=== PATIENT | male | born 1965 | race Caucasian/White ===

== ENCOUNTER 2020-09-29 08:10 | Outpatient (REF) | payer OTHER, SELFPAY ==
[2020-09-29 11:13] LABS: MANUAL DIFF FLAG NO
[2020-09-29 11:23] LABS: Basophils Percent Auto 0.4 % (0-2); Eosinophils Absolute Auto 0.1 X10*3/uL (0.0-0.4); Eosinophils Percent Auto 1.1 % (0-4); Hematocrit 40.7 % (42-52); Hemoglobin 13.4 g/dl (14.0-18.0); Imm Gran Abs Auto 0.02 X10*3/uL (0.00-0.03); Imm Gran Pct Auto 0.3 % (0.0-0.4); Lymphocytes Absolute Auto 2.1 X10*3/uL (1.2-4.9); Lymphocytes Percent Auto 30.3 % (20-40); Mean Corpuscular HGB Conc 32.9 g/dl (31.0-36.0); Mean Corpuscular Hemoglobin 31.2 pg (27.0-33.0); Mean Corpuscular Volume 94.7 fL (80-98); Mean Platelet Volume 11.4 fL (9.4-12.4); Monocytes Absolute Auto 0.5 X10*3/uL (0.1-1.2); Monocytes Percent Auto 6.4 % (2-11); Neutrophils Absolute Auto 4.3 X10*3/uL (2.0-8.3); Neutrophils Percent Auto 61.5 % (45-73); Platelet Count 211 X10*3/uL (160-400); Red Cell Distribution Width 12.1 % (11.0-16.0)
[2020-09-29 11:48] LABS: Alanine Aminotransferase 15 U/L (0-40); Albumin Level 4.1 g/dL (3.5-5.0); Alkaline Phosphatase 101 U/L (39-117); Anion Gap 12 (12-20); Aspartate Amino Transferase 16 U/L (5-37); Bilirubin Total 0.3 mg/dL (0.0-1.0); Blood Urea Nitrogen 12 mg/dL (9-16); Calcium 8.7 mg/dL (8.4-10.2); Carbon Dioxide 24 mmol/L (22-29); Chloride 105 mmol/L (96-108); Estimated Glomerular Filt Rate > 60; Glucose Fasting 277 mg/dL (60-99); Potassium 4.4 mmol/l (3.3-5.1); Sodium 137 mmol/L (135-145); Total Protein 6.2 g/dL (6.5-8.0)
[2020-09-29 11:59] LABS: TSH reflex Free T4 0.87 mIU/mL (0.32-4.0)
== END 2020-09-29 08:11 | disposition home or self-care (01) ==
LOC: HO.HMGCLDS 08:10
PROVIDERS: PCP Internal Medicine; Visit Provider Internal Medicine
DX: K58.0 Irritable bowel syndrome with diarrhea (principal); I10 Essential (primary) hypertension
CPT/HCPCS: 36415; 80053; 84443; 85025

== ENCOUNTER 2020-10-02 10:23 | Outpatient (REF) | payer OTHER, SELFPAY ==
--- NOTE | 2020-10-02 10:27 | US_ITS ---
EXAMINATION: US ABDOMEN COMPLETE CLINICAL INFORMATION: Irritable bowel syndrome. Gaseous abdominal distention. COMPARISON: CT chest screening 05/26/2020 TECHNIQUE: Real-time imaging of the abdominal viscera. FINDINGS: PANCREAS: There are several echogenic stones seen within the pancreatic duct with mild pancreatic duct dilatation measuring 1.3 cm in the mid and the distal segment. The head of the pancreas is somewhat visualized. The probable mass described on recent CT is not well visualized at this time. ABDOMINAL AORTA: The proximal, mid, and distal segments are normal in caliber. There is mild atherosclerotic calcification of the abdominal aorta. INFERIOR VENA CAVA: Visualized portions are normal. LIVER: Normal. The liver is normal in size. The liver contour is normal. Parenchymal echogenicity is normal. No focal hepatic lesion. There is no intrahepatic biliary duct dilatation seen. GALLBLADDER: There are prominent echogenic areas along the gallbladder wall question calcifications. Slight echogenic debris seen within. The gallbladder is physiologically distended without evidence of stones, sludge, polyps, wall thickening or pericholecystic fluid. COMMON BILE DUCT: Normal in caliber measuring 0.58 cm in diameter. RIGHT KIDNEY: There is anechoic cyst in midpole measuring 2.3 x 2.0 x 2.3 cm. No hydronephrosis. No renal calculi or focal parenchymal lesions. The kidney measures 11.0 cm in maximum dimension. LEFT KIDNEY: Normal. No hydronephrosis. No renal calculi or focal parenchymal lesions. The kidney measures 11.8 cm in maximum dimension. SPLEEN: Normal. The spleen measures 11.0 cm in maximum dimension. There is a small splenule seen at the hilum. FREE FLUID: None. US/US abdomen complete IMPRESSION: Dilated pancreatic duct in the body and the tail with multiple calcifications or stones. The CBD is prominent measuring 0.58 cm. Similar findings of calcifications were seen on the CT chest screening exam There are echogenic wall calcifications and dependent debris within the gallbladder. Small splenule at the hilum.
== END 2020-10-02 10:24 | disposition home or self-care (01) ==
LOC: HO.HMGCX 10:23
PROVIDERS: PCP Internal Medicine; Visit Provider Internal Medicine
DX: K58.0 Irritable bowel syndrome with diarrhea (principal); R14.0 Abdominal distension (gaseous)
CPT/HCPCS: 76700

== ENCOUNTER 2020-10-09 13:04 | Outpatient (REF) | payer OTHER, SELFPAY ==
[2020-10-09 14:21] LABS: Estimated Average Glucose 280 mg/dL; Hemoglobin A1c % 11.4 %
[2020-10-09 14:40] LABS: Creatinine Urine 59.78 mg/dL
== END 2020-10-09 13:05 | disposition home or self-care (01) ==
LOC: HO.HMGCLDS 13:04
PROVIDERS: PCP Internal Medicine; Visit Provider Internal Medicine
DX: R73.01 Impaired fasting glucose (principal)
CPT/HCPCS: 82043; 83036

== ENCOUNTER → 2020-10-16 08:20 | Outpatient (BNVA) | payer OTHER, SELFPAY | PROVIDERS: PCP Internal Medicine; Visit Provider Physician Assistant | DX: Z76.89 Persons encountering health services in other specified circumstances (principal) ==

== ENCOUNTER 2020-10-24 09:09 | Outpatient (REF) | payer OTHER, SELFPAY ==
[2020-10-24 11:47] LABS: Estimated Average Glucose 312 mg/dL; Hemoglobin A1c % 12.5 %
[2020-10-24 11:51] LABS: Lipase 66 U/L (8-78)
[2020-10-24 11:59] LABS: Alanine Aminotransferase 16 U/L (0-40); Albumin Level 4.6 g/dL (3.5-5.0); Alkaline Phosphatase 106 U/L (39-117); Anion Gap 15 (12-20); Aspartate Amino Transferase 11 U/L (5-37); Bilirubin Total 0.3 mg/dL (0.0-1.0); Blood Urea Nitrogen 12 mg/dL (9-16); Calcium 9.3 mg/dL (8.4-10.2); Carbon Dioxide 24 mmol/L (22-29); Chloride 102 mmol/L (96-108); Cholesterol 133 mg/dL; Estimated Glomerular Filt Rate > 60; Glucose Fasting 343 mg/dL (60-99); HDL Cholesterol 34 mg/dL; LDL Cholesterol Calculated 82 mg/dl; Potassium 4.1 mmol/l (3.3-5.1); Sodium 137 mmol/L (135-145); Total Protein 6.8 g/dL (6.5-8.0); Triglycerides 88 mg/dL
[2020-10-24 12:02] LABS: Creatinine Urine 17.34 mg/dL; Microalbumin Urine < 5.0 mg/L
[2020-10-24 12:24] LABS: Erythrocyte Sedimentation Rate 5 MM/HR (0-15)
[2020-10-24 12:27] LABS: Folate 17.8 ng/mL (> or = 4.0); Vitamin B12 363 pg/mL (200-900)
[2020-10-25 14:37] LABS: CRP High Sensitivity 1.1 mg/L
[2020-10-25 22:07] LABS: Transglutaminase IgA 1 U/mL
[2020-10-25 23:36] LABS: Anti Nuclear Antibody Screen POSITIVE (NEGATIVE); Anti Nuclear Antibody Titer 1:40 titer
[2020-10-26 23:43] LABS: Immunoglobulin G Subclass 1 249 mg/dL (382-929); Immunoglobulin G Subclass 2 201 mg/dL (241-700); Immunoglobulin G Subclass 3 35 mg/dL (22-178); Immunoglobulin G Subclass 4 11.5 mg/dL (4-86); Immunoglobulin G Total 533 mg/dL (600-1640)
[2020-10-28 13:17] LABS: Vitamin D 25-OH, D2 <4 ng/mL; Vitamin D 25-OH, D3 16 ng/mL; Vitamin D 25-OH, Total 16 ng/mL (30-100)
[2020-10-28 17:57] LABS: Endomysial IgA Antibody Negative (Negative)
[2020-10-28 18:22] LABS: Vitamin K1 <50 pg/mL (130-1500)
[2020-10-28 20:42] LABS: Alpha-Tocopherol 6.2 mg/L (5.7-19.9); Beta-Gamma Tocopherol <1.0 mg/L (<=4.3)
[2020-10-29 16:53] LABS: Vitamin A 32 mcg/dL (38-98)
[2020-11-01 21:22] LABS: Pancreatic Elastase-1 <15 mcg/g
== END 2020-10-24 09:10 | disposition home or self-care (01) ==
LOC: HO.HMGCLDS 09:09
PROVIDERS: PCP Internal Medicine; Visit Provider Physician Assistant
DX: K86.89 Other specified diseases of pancreas (principal); R19.7 Diarrhea, unspecified; E11.65 Type 2 diabetes mellitus with hyperglycemia; I10 Essential (primary) hypertension; D64.9 Anemia, unspecified
CPT/HCPCS: 36415; 80053; 80061; 82043; 82306; 82607; 82656; 82746; 82784; 83036; 83516; 83690; 84446; 84590; 84597; 85652; 86038; 86039; 86141; 86255; 86256

== ENCOUNTER 2020-11-07 11:31 | Outpatient (REF) | payer OTHER, SELFPAY ==
[2020-11-07 13:06] LABS: Blood Urea Nitrogen 12 mg/dL (9-16); Estimated Glomerular Filt Rate > 60
[2020-11-14 10:47] LABS: Vitamin A 30 mcg/dL (38-98)
== END 2020-11-07 11:32 | disposition home or self-care (01) ==
LOC: HO.LAB 11:31
PROVIDERS: PCP Physician Assistant; Referring Provider Physician Assistant; Visit Provider Physician Assistant
DX: R19.7 Diarrhea, unspecified (principal); K86.89 Other specified diseases of pancreas
CPT/HCPCS: 36415; 82565; 84520; 84590

== ENCOUNTER 2020-11-13 07:45 | Outpatient (REF) | payer OTHER, SELFPAY ==
--- NOTE | 2020-11-13 07:48 | MR_ITS ---
EXAMINATION: MR ABDOMEN WITHOUT AND WITH CONTRAST CLINICAL INFORMATION: Other specified diseases of the pancreas COMPARISON: Previous abdominal ultrasound September [address] of the chest May [address] of the abdomen and pelvis June 2007 TECHNIQUE: MR abdomen was performed without and with use of 7.5 mL intravenous Gadavist gadolinium contrast. Postcontrast images are performed in multiphase dynamic sequences. Imaging was performed in 3 planes. MRCP sequences were also performed. FINDINGS: LUNG BASES: The visualized lung bases are unremarkable. LIVER, GALLBLADDER, AND BILIARY TREE: The liver is normal in size, smooth in contour, and normal in signal. No focal hepatic lesion or biliary ductal dilatation is present. The gallbladder is unremarkable with no evidence of gallbladder wall thickening, or obvious pericholecystic inflammatory changes. PANCREAS: The main pancreatic duct is dilated throughout the pancreas measuring up to 1.3 cm. There are multiple low signal filling defects seen in the main pancreatic duct on T2 weighted sequences. The largest measures 0.8 cm in the distal main pancreatic duct in the head of the pancreas at the ampulla for example MRCP image 33 series 7.These filling defects in the main pancreatic duct are not appreciated on T1-weighted sequences. When compared with previous CT of the chest and abdominal ultrasound this may correspond to calcifications or stones. There is question of dilatation of an accessory main pancreatic duct in the head of the pancreas measuring 9 mm for example MRCP image 26 series 7. This also has a small low signal filling defect questionable for a stone that measures 3 mm. There are multiple dilated right side branch pancreatic duct radicles seen throughout the pancreas. Enhancing pancreatic mass is not appreciated. This probably represents chronic pancreatitis. SPLEEN: Normal. ADRENAL GLANDS: Normal. KIDNEYS AND URETERS: The kidneys are normal in size, shape, and enhance symmetrically. There is a 2 cm cyst in the right kidney. No hydronephrosis. No perinephric stranding. GASTROINTESTINAL TRACT: No bowel obstruction. No ascites or fluid collection. ABDOMINAL WALL: No significant hernia is appreciated. LYMPH NODES: No lymphadenopathy. VASCULAR: Unremarkable. OSSEOUS STRUCTURES: Marrow signal normal. There are degenerative changes of the spine. MR/MR abdomen wo/w con IMPRESSION: Very dilated pancreatic ducts and dilated side branch pancreatic duct radicals probably representing chronic pancreatitis. Several low signal on T2-weighted sequences filling defects in the pancreatic ducts, largest measuring 9 mm at the ampulla. When compared with previous CT of the chest and abdominal ultrasound this probably corresponds to calcifications in the ducts. No enhancing pancreatic lesion is appreciated. As calcifications are not well visualized by MRI, follow-up dedicated CT of the pancreas with and without contrast according to pancreatic mass protocol should be considered. Normal-appearing gallbladder. No gallstones seen. Small right renal cyst.
== END 2020-11-13 07:46 | disposition home or self-care (01) ==
LOC: HO.MRI 07:45
PROVIDERS: Visit Provider Physician Assistant
DX: K86.89 Other specified diseases of pancreas (principal)
CPT/HCPCS: 74183; A9585

== ENCOUNTER → 2020-12-04 14:55 | Outpatient (BNVA) | payer OTHER, SELFPAY | PROVIDERS: Visit Provider Physician Assistant ==

== ENCOUNTER → 2020-12-20 12:39 | Outpatient (BNVA) | payer OTHER, SELFPAY | PROVIDERS: PCP Internal Medicine; Visit Provider Physician Assistant ==

== ENCOUNTER 2021-01-10 10:49 | Outpatient (REF) | payer OTHER, SELFPAY ==
[2021-01-10 14:34] LABS: Vitamin D 25-OH Total 15.3 ng/mL (>30)
[2021-01-10 14:37] LABS: Alanine Aminotransferase 31 U/L (0-40); Albumin Level 4.3 g/dL (3.5-5.0); Alkaline Phosphatase 110 U/L (39-117); Anion Gap 16 (12-20); Aspartate Amino Transferase 16 U/L (5-37); Bilirubin Total 0.4 mg/dL (0.0-1.0); Blood Urea Nitrogen 12 mg/dL (9-16); Calcium 9.1 mg/dL (8.4-10.2); Carbon Dioxide 24 mmol/L (22-29); Chloride 97 mmol/L (96-108); Cholesterol 129 mg/dL; Creatinine Urine 39.87 mg/dL; Estimated Glomerular Filt Rate > 60; Glucose Fasting 476 mg/dL (60-99); HDL Cholesterol 34 mg/dL; LDL Cholesterol Calculated 71 mg/dl; Potassium 4.1 mmol/L (3.3-5.1); Sodium 133 mmol/L (135-145); Total Protein 6.4 g/dL (6.5-8.0); Triglycerides 123 mg/dL
== END 2021-01-10 10:50 | disposition home or self-care (01) ==
LOC: HO.HMGCLDS 10:49
PROVIDERS: PCP Internal Medicine; Visit Provider Internal Medicine
DX: R10.11 Right upper quadrant pain (principal); K86.89 Other specified diseases of pancreas; I10 Essential (primary) hypertension; E11.65 Type 2 diabetes mellitus with hyperglycemia
CPT/HCPCS: 36415; 80053; 80061; 82043; 82306

== ENCOUNTER 2021-01-10 16:15 | Emergency (ER) | payer OTHER, SELFPAY | END 2021-01-10 18:38 | disposition left against medical advice (07) | PROVIDERS: Emergency Provider Emergency Medicine Emergency Medical Services; PCP Internal Medicine | DX: R73.9 Hyperglycemia, unspecified (principal) ==

== ENCOUNTER 2021-01-11 06:50 | Emergency (ER) | payer OTHER, SELFPAY ==
[2021-01-11 07:45] VITALS: BP 153/92; PULSE 72; RESP 16; TEMP 36.9; O2SAT 98; BMI 21.0
--- NOTE | 2021-01-11 08:35 | ED.GENADULT ---
HPI - General Adult General Chief complaint: General Medical Stated complaint: high blood sugar Time Seen by Provider: 01/11/21 08:35 Source: patient Mode of arrival: ambulatory Limitations: no limitations History of Present Illness HPI narrative: 55-year-old male with history of chronic pancreatitis, new onset diabetes who presents emergency department for evaluation of elevated glucose. The patient states that over the past month and a half he has been worked up for chronic pancreatitis, he states that he does have a history of alcohol use disorder and did have pancreatitis when he was younger. The patient was diagnosed with diabetes approximately 1-1/2 month prior and was started on metformin, this was recently stopped by the salesperson surgical appliances. The patient has followed up with his PCP and was found to have a high glucose. The patient's PCP was referring the patient to the tire mold engraver, Dr.Suazo Rivas. Today, the patient's glucose was higher and he was referred to the emergency department for evaluation. The patient states that he has had frequency, urgency, no change in his vision and approximately a 30 lb weight loss over 1 month. The patient states that he was on pancreatic enzymes (Creon) but this did not seem to improve his diarrhea so he stopped this medication. He states his diarrhea has improved slightly with herbal medications and with acupuncture. He states that his glucose yesterday was 478 and today it was higher. He denied fever, chills, chest pain, shortness of breath, nausea, vomiting. The patient states that he has a glucometer at home but it does not work. He states that he has never been on subcutaneous insulin and has never injected himself before. Related Data Home Medications Medication Instructions Recorded Confirmed lisinopril 10 mg tablet 10 mg PO DAILY 08/02/20 01/11/21 amitriptyline 20 mg PO BEDTIME 01/11/21 01/11/21 cholecalciferol (vitamin D3) 1,250 mcg PO TH@1000 01/11/21 01/11/21 [D3-50 Cholecalciferol] cyanocobalamin (vitamin B-12) 1,000 mcg PO DAILY 01/11/21 01/11/21 vitamin B complex 1 tab PO DAILY 01/11/21 01/11/21 Previous Rx's Medication Instructions Recorded blood sugar diagnostic #100 ea 10/11/20 blood-glucose meter #1 ea 12/30/20 lancets 28 gauge #100 ea 10/11/20 nystatin 100,000 unit/mL oral 5 ml PO QID 7 Days #140 ml 01/10/21 suspension alcohol swabs [Alcohol Wipes] 1 pad TOPICAL TID #200 ea 01/11/21 insulin glargine [Lantus U-100 20 unit SUBCUT QPM 30 Days #10 ml 01/11/21 Insulin] insulin lispro [Humalog U-100 5 unit SUBCUT TID #10 ml 01/11/21 Insulin] insulin syringe,safetyneedle #100 ea 01/11/21 [Assure ID Insulin Safety] [id number] [Creon] 11.44435 cap PO TID #90 cap 01/11/21 Allergies Allergy/AdvReac Type Severity Reaction Status Date / Time No Known Allergies Allergy Verified 01/10/21 10:17 [No Known Allergies*] Review of Systems Review of Systems: Yes all other systems are reviewed and are negative PMFSH Past Medical History Medical History Anxiety disorder Calcification of gallbladder Chronic pancreatitis Diabetes mellitus with hyperglycemia, without long-term current use of insulin Dilated pancreatic duct Dry skin dermatitis Essential hypertension Gassiness Impaired fasting glucose Influenza vaccination declined Insomnia Irritable bowel syndrome with diarrhea Pancreatic calcification Smoker unmotivated to quit Surgical History History of cervical fracture History of root canal procedure History of tonsillectomy and adenoidectomy History of wrist fracture Family History Family History Father Cirrhosis, alcoholic Mother Agoraphobia PNA (pneumonia) Mental illness in member of household Sister No problems noted. Son No problems noted. Son No problems noted. 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 Physical Exam Vital Signs: Vital Signs: Last Vital Signs Temp 98.4 F 01/11/21 09:18 Pulse 72 01/11/21 09:18 Resp 16 01/11/21 09:18 BP 153/92 H 01/11/21 09:18 Pulse Ox 98 01/11/21 09:18 Body Mass Index 21.0 Const: General: cooperative Orientation/consciousness: oriented to person and oriented to place Limitations: no limitations HENMT: Head: Yes normal to inspection, Yes normocephalic and Yes atraumatic Ears: external ears normal General nose exam: Normal external nose present Face and sinus: Yes normal facial exam Mouth: Normal oral and palatal mucosa present Throat: Yes posterior oropharynx normal Eyes: Periorbital: periorbital findings normal Eyelids: Yes eyelids normal Conjunctivae: conjunctivae normal Sclerae: sclerae normal Corneas: corneas normal Pupils: Equal, round and reactive pupils present Direct Ophthalmoscopy: normal light reflex Neck: Neck: Yes full ROM, Yes no lymphadenopathy, Yes no meningeal signs, Yes trachea midline and Yes supple Chest: Chest palpation & inspection: normal inspection of the chest and normal palpation of entire chest wall Resp: Effort & Inspection: normal respiratory effort and able to speak in complete sentences Auscultation: clear to auscultation bilaterally Cardio: Rate: regular rate Rhythm: regular rhythm Heart sounds: S1 normal heart sound present, S2 normal heart sound present and no murmurs GI: Inspection: Yes normal to inspection Palpation (GI): Soft to palpation, nontender, no guarding, not rigid and No hepatosplenomegaly present : General: Yes no CVA tenderness Back/Spine/Pelvis: Back: no CVA tenderness Cervical Spine: normal cervical lordosis Thoracic/Lumbar Spine: thoracic and lumbar spine normal to inspection Skin: Lesions: no lesions Rashes: no rashes Wounds: no wounds Neuro: General: oriented to person, oriented to place and no meningeal signs Cranial nerves: Yes CN's II-XII intact bilaterally and Yes Equal, round and reactive pupils present Cognition (Neuro): normal cognition Motor exam (neuro): 5/5 motor strength present throughout Extrem: General: Yes normal to inspection and Yes full ROM Psych: Appearance: well kempt Mental Status: mental status grossly normal Speech and movement: Normal speech and movement present Affect: normal affect Attitude: cooperative Thought process: Normal thought process present Thought content: Normal thought content present Course Course Course Narrative: 55-year-old male with a history of new onset diabetes and chronic pancreatitis, not on any antihyperglycemic medications who presents emergency department with frequency, increased thirst, diarrhea and weight loss and with an glucose greater than 400. Patient's physical examination was unremarkable. I ordered a CBC, CMP, urinalysis and COVID-19 test. 1327: The patient's laboratory evaluation did reveal an elevated glucose of 535, otherwise was unremarkable. Urinalysis did revealed glucose with no ketones in his urine. The patient was treated with normal saline x2 L with improvement of his glucose down to 391. He then received 10 units of regular insulin with improvement of his point of care glucose to 218 and then down to 134. I did discuss the patient's presentation with the patient's PCPs office and with Dr. Dajuan Rivas. Since the patient has never been on insulin, and has never self injected himself, she recommended that he be admitted to follow his glucose and to start him on insulin, get a nutrition consult and train him to use insulin. She also recommended that the patient should be restarted on his pancreatic enzymes (Creon). I did discuss this with the covering hospitalist, Dr. Negron and the patient will be admitted to the hospital service for further treatment. 1436: The patient was seen by the hospitalist however the patient states that he cannot be hospitalized at this time and he has issues that he has to deal with at home. The patient will therefore be treated as an outpatient. He was given Lantus 20 units subcutaneously here in the emergency department. He will be started on Lantus 20 units subQ at night and Humalog insulin 3 units before each meal. He will also be started back on his Creon. He will need to follow-up with his PCP and the tire mold engraver for further management of his diabetes. Medical Decision Making Lab Data Result diagrams: 01/11/21 09:08 01/11/21 09:08 Labs: Lab Results 01/11/21 01/11/21 01/11/21 Range/Units 07:18 09:08 09:08 WBC 8.0 (4.8-10.8) X10*3/uL RBC 4.44 L (4.60-5.80) X10*6/uL Hgb 13.9 L (14.0-18.0) g/dl Hct 41.0 L (42-52) % MCV 92.3 (80-98) fL MCH 31.3 (27.0-33.0) pg MCHC 33.9 (31.0-36.0) g/dl RDW 12.4 (11.0-16.0) % Plt Count 207 (160-400) X10*3/uL MPV 11.1 (9.4-12.4) fL Immature Gran % (Auto) 0.3 (0.0-0.4) % Neut % (Auto) 67.3 (45-73) % Lymph % (Auto) 26.1 (20-40) % [place] % (Auto) 5.5 (2-11) % Eos % (Auto) 0.4 (0-4) % Baso % (Auto) 0.4 (0-2) % Lymph # (Auto) 2.1 (1.2-4.9) X10*3/uL [place] # (Auto) 0.4 (0.1-1.2) X10*3/uL Eos # (Auto) 0.0 (0.0-0.4) X10*3/uL Baso # (Auto) 0.0 (0.0-0.2) X10*3/uL Abs Immat Gran (auto) 0.02 (0.00-0.03) X10*3/uL Absolute Neuts (auto) 5.4 (2.0-8.3) X10*3/uL Absolute Nucleated RBC 0.000 (0.0-0.012) X10*3/uL Nucleated RBC % (auto) 0.0 (0.0-0.2) /100WBC Sodium 134 L (135-145) mmol/L Potassium 4.1 (3.3-5.1) mmol/L Chloride 101 (96-108) mmol/L Carbon Dioxide 25 (22-29) mmol/L Anion Gap 12 (12-20) BUN 14 (9-16) mg/dL Creatinine 0.91 (0.5-1.4) mg/dL Estim Creat Clear Calc 89.1 Estimated GFR > 60 POC Glucose 554 H* (60-115) mg/dL Random Glucose 535 H* (60-115) mg/dL Calcium 8.9 (8.4-10.2) mg/dL Total Bilirubin 0.4 (0.0-1.0) mg/dL AST 18 (5-37) U/L ALT 34 (0-40) U/L Alkaline Phosphatase 112 (39-117) U/L Total Protein 6.4 L (6.5-8.0) g/dL Albumin 4.3 (3.5-5.0) g/dL Lipase 57 (8-78) U/L Urine Color Urine Appearance Urine pH (5.0-8.0) Ur Specific [place] (1.005-1.025) Urine Protein (NEG-TRACE) MG/DL Urine Glucose (UA) (NEG) MG/DL Urine Ketones (NEG) MG/DL Urine Blood (NEG) Urine Nitrite (NEG) Ur Leukocyte Esterase (NEG) Urine RBC (0) /HPF Urine WBC (0-4) /HPF Ur Squamous Epith Cells /LPF Urine Bacteria /LPF 01/11/21 01/11/21 01/11/21 Range/Units 09:10 10:38 11:56 WBC (4.8-10.8) X10*3/uL RBC (4.60-5.80) X10*6/uL Hgb (14.0-18.0) g/dl Hct (42-52) % MCV (80-98) fL MCH (27.0-33.0) pg MCHC (31.0-36.0) g/dl RDW (11.0-16.0) % Plt Count (160-400) X10*3/uL MPV (9.4-12.4) fL Immature Gran % (Auto) (0.0-0.4) % Neut % (Auto) (45-73) % Lymph % (Auto) (20-40) % [place] % (Auto) (2-11) % Eos % (Auto) (0-4) % Baso % (Auto) (0-2) % Lymph # (Auto) (1.2-4.9) X10*3/uL [place] # (Auto) (0.1-1.2) X10*3/uL Eos # (Auto) (0.0-0.4) X10*3/uL Baso # (Auto) (0.0-0.2) X10*3/uL Abs Immat Gran (auto) (0.00-0.03) X10*3/uL Absolute Neuts (auto) (2.0-8.3) X10*3/uL Absolute Nucleated RBC (0.0-0.012) X10*3/uL Nucleated RBC % (auto) (0.0-0.2) /100WBC Sodium (135-145) mmol/L Potassium (3.3-5.1) mmol/L Chloride (96-108) mmol/L Carbon Dioxide (22-29) mmol/L Anion Gap (12-20) BUN (9-16) mg/dL Creatinine (0.5-1.4) mg/dL Estim Creat Clear Calc Estimated GFR POC Glucose 391 H* 218 H (60-115) mg/dL Random Glucose (60-115) mg/dL Calcium (8.4-10.2) mg/dL Total Bilirubin (0.0-1.0) mg/dL AST (5-37) U/L ALT (0-40) U/L Alkaline Phosphatase (39-117) U/L Total Protein (6.5-8.0) g/dL Albumin (3.5-5.0) g/dL Lipase (8-78) U/L Urine Color YELLOW Urine Appearance CLEAR Urine pH 5.5 (5.0-8.0) Ur Specific [place] 1.020 (1.005-1.025) Urine Protein NEG (NEG-TRACE) MG/DL Urine Glucose (UA) >=1000 H (NEG) MG/DL Urine Ketones NEG (NEG) MG/DL Urine Blood NEG (NEG) Urine Nitrite NEG (NEG) Ur Leukocyte Esterase NEG (NEG) Urine RBC 0-2 (0) /HPF Urine WBC 0-2 (0-4) /HPF Ur Squamous Epith Cells NONE /LPF Urine Bacteria NONE /LPF 01/11/21 Range/Units 13:07 WBC (4.8-10.8) X10*3/uL RBC (4.60-5.80) X10*6/uL Hgb (14.0-18.0) g/dl Hct (42-52) % MCV (80-98) fL MCH (27.0-33.0) pg MCHC (31.0-36.0) g/dl RDW (11.0-16.0) % Plt Count (160-400) X10*3/uL MPV (9.4-12.4) fL Immature Gran % (Auto) (0.0-0.4) % Neut % (Auto) (45-73) % Lymph % (Auto) (20-40) % [place] % (Auto) (2-11) % Eos % (Auto) (0-4) % Baso % (Auto) (0-2) % Lymph # (Auto) (1.2-4.9) X10*3/uL [place] # (Auto) (0.1-1.2) X10*3/uL Eos # (Auto) (0.0-0.4) X10*3/uL Baso # (Auto) (0.0-0.2) X10*3/uL Abs Immat Gran (auto) (0.00-0.03) X10*3/uL Absolute Neuts (auto) (2.0-8.3) X10*3/uL Absolute Nucleated RBC (0.0-0.012) X10*3/uL Nucleated RBC % (auto) (0.0-0.2) /100WBC Sodium (135-145) mmol/L Potassium (3.3-5.1) mmol/L Chloride (96-108) mmol/L Carbon Dioxide (22-29) mmol/L Anion Gap (12-20) BUN (9-16) mg/dL Creatinine (0.5-1.4) mg/dL Estim Creat Clear Calc Estimated GFR POC Glucose 134 H (60-115) mg/dL Random Glucose (60-115) mg/dL Calcium (8.4-10.2) mg/dL Total Bilirubin (0.0-1.0) mg/dL AST (5-37) U/L ALT (0-40) U/L Alkaline Phosphatase (39-117) U/L Total Protein (6.5-8.0) g/dL Albumin (3.5-5.0) g/dL Lipase (8-78) U/L Urine Color Urine Appearance Urine pH (5.0-8.0) Ur Specific [place] (1.005-1.025) Urine Protein (NEG-TRACE) MG/DL Urine Glucose (UA) (NEG) MG/DL Urine Ketones (NEG) MG/DL Urine Blood (NEG) Urine Nitrite (NEG) Ur Leukocyte Esterase (NEG) Urine RBC (0) /HPF Urine WBC (0-4) /HPF Ur Squamous Epith Cells /LPF Urine Bacteria /LPF Discharge Plan Discharge Clinical Impression: New onset type 1 diabetes mellitus, uncontrolled, Acute dehydration Diarrhea Qualifiers: Diarrhea type: unspecified type Qualified Code(s): R19.7 - Diarrhea, unspecified Patient Disposition: Home, Self-Care Instructions: Insulin Glargine (By injection), Diabetes Type 1: Management (ED) Additional Instructions: My recommendation is that you stay in the hospital to get training on how to use insulin however you want to the and try to treat herself as an outpatient. Take Lantus (glargine insulin) 20 units subcutaneously at night. You were given a dose here in the emergency department so take your next dose tomorrow evening. Take Humalog insulin (lispro proinsulin) 3 unit before breakfast, lunch and dinner. Check your glucose before meals and at night right these down to keep track of them for your doctor. Restart your pancreatic enzymes (Creon). Follow-up with your doctor in 2 days. Call the tire mold engraver, Dr. Rivas's office for a follow-up appointment to help get trained on how to use insulin and for further management of your diabetes. Please return to the emergency department if your symptoms get worse or if you develop any symptoms that are concerning to you. Prescriptions: New Lantus U-100 Insulin 100 unit/mL solution 20 unit subcut QPM 30 Days Qty: 10 RF: 0 insulin lispro [Humalog U-100 Insulin] 100 unit/mL solution 5 unit subcut TID Qty: 10 RF: 0 Creon 6,000-19,000 -30,000 unit capsule,delayed release(DR/EC) 11.15372 cap PO TID Qty: 90 RF: 0 (DME) Assure ID Insulin Safety 1 mL 29 gauge x 1/2 syringe See Rx Instructions .ROUTE .MEDSUPPLY Qty: 100 RF: 0 alcohol swabs [Alcohol Wipes] Pads, Medicated 1 pad topical TID Qty: 200 RF: 0 No Action cholecalciferol (vitamin D3) [D3-50 Cholecalciferol] 1,250 mcg (50,000 unit) Capsule 1,250 mcg PO TH@1000 RF: 0 amitriptyline 10 mg tablet 20 mg PO BEDTIME RF: 0 cyanocobalamin (vitamin B-12) 1,000 mcg Tablet 1,000 mcg PO DAILY RF: 0 vitamin B complex Tablet 1 tab PO DAILY RF: 0 lisinopril 10 mg tablet 10 mg PO DAILY RF: 0 (DME) blood-glucose meter [FreeStyle Lite Meter] Kit See Rx Instructions .ROUTE .MEDSUPPLY Qty: 1 RF: 0 (DME) FreeStyle Lite Strips Strip See Rx Instructions .ROUTE .MEDSUPPLY Qty: 100 RF: 5 (DME) lancets [FreeStyle Lancets] 28 gauge misc See Rx Instructions .ROUTE .MEDSUPPLY Qty: 100 RF: 0 nystatin 100,000 unit/mL suspension 5 ml PO QID 7 Days Qty: 140 RF: 0
[2021-01-11 09:18] VITALS: BP 153/92; PULSE 72; RESP 16; TEMP 36.9; O2SAT 98
[2021-01-11] MEDS: 0.9 % Sodium Chloride 1,000 ML 999 ML IV ×2 (09:19→09:23)
[2021-01-11 09:20] LABS: MANUAL DIFF FLAG NO
[2021-01-11 09:28] LABS: Basophils Percent Auto 0.4 % (0-2); Eosinophils Percent Auto 0.4 % (0-4); Hemoglobin 13.9 g/dl (14.0-18.0); Imm Gran Abs Auto 0.02 X10*3/uL (0.00-0.03); Imm Gran Pct Auto 0.3 % (0.0-0.4); Lymphocytes Absolute Auto 2.1 X10*3/uL (1.2-4.9); Lymphocytes Percent Auto 26.1 % (20-40); Mean Corpuscular HGB Conc 33.9 g/dl (31.0-36.0); Mean Corpuscular Hemoglobin 31.3 pg (27.0-33.0); Mean Corpuscular Volume 92.3 fL (80-98); Mean Platelet Volume 11.1 fL (9.4-12.4); Monocytes Absolute Auto 0.4 X10*3/uL (0.1-1.2); Monocytes Percent Auto 5.5 % (2-11); Neutrophils Absolute Auto 5.4 X10*3/uL (2.0-8.3); Neutrophils Percent Auto 67.3 % (45-73); Platelet Count 207 X10*3/uL (160-400); Red Blood Count 4.44 X10*6/uL (4.60-5.80); Red Cell Distribution Width 12.4 % (11.0-16.0)
[2021-01-11 09:36] LABS: Glucose Urine UA >=1000 MG/DL (NEG); Leukocyte Esterase Urine NEG (NEG); Nitrite Urine NEG (NEG); PH 5.5 (5.0-8.0); Urine Blood NEG (NEG); Urine Ketones NEG (NEG); Urine Protein NEG (NEG-TRACE)
[2021-01-11 09:37] LABS: Appearance Urine CLEAR; Color Urine YELLOW
[2021-01-11 09:49] LABS: RBC Urine 0-2 /HPF (0); WBC Urine 0-2 /HPF (0-4)
[2021-01-11 10:34] LABS: Alanine Aminotransferase 34 U/L (0-40); Albumin Level 4.3 g/dL (3.5-5.0); Alkaline Phosphatase 112 U/L (39-117); Anion Gap 12 (12-20); Aspartate Amino Transferase 18 U/L (5-37); Bilirubin Total 0.4 mg/dL (0.0-1.0); Blood Urea Nitrogen 14 mg/dL (9-16); Calcium 8.9 mg/dL (8.4-10.2); Carbon Dioxide 25 mmol/L (22-29); Chloride 101 mmol/L (96-108); Creatinine Clr Calc Pharmacy 89.1; Estimated Glomerular Filt Rate > 60; Glucose Random 535 mg/dL (60-115); Lipase 57 U/L (8-78); Potassium 4.1 mmol/L (3.3-5.1); Sodium 134 mmol/L (135-145); Total Protein 6.4 g/dL (6.5-8.0)
[2021-01-11] MEDS: Insulin Regular, Human 100 UNIT/ML 3 ML VIAL 10 UNIT IVPUSH (10:42)
--- NOTE | 2021-01-11 10:43 | PC.NURSE ---
pt given 2 Liters NS, recheched POC glucose, 391. Discussed insulin dose with MD, he states give IV as ordered, med given. Pt denies pain, call light at bedside
[2021-01-11 10:45] LABS: Glucose, Whole Blood 391 mg/dL (60-115)
[2021-01-11 10:59] LABS: Glucose, Whole Blood 554 mg/dL (60-115)
[2021-01-11 12:01] LABS: Glucose, Whole Blood 218 mg/dL (60-115)
[2021-01-11 13:11] LABS: Glucose, Whole Blood 134 mg/dL (60-115)
[2021-01-11 14:48] VITALS: BP 118/71; PULSE 52; RESP 15; O2SAT 100
[2021-01-11] MEDS: Insulin Glargine,Hum.rec.anlog 100 UNIT/ML 10 ML VIAL 20 UNIT SUBCUT (14:56)
--- NOTE | 2021-01-11 15:22 | PC.NURSE ---
diabetes education with pt done, included SX of low blood sugar, how to handle used syringes, low glycemic foods, how to treat low blood sugar and when to call MD or come to ER. Pt states he will follow with his PCP as directed, states he has an appointment and will return if any sx develop. Ambulatory on exit with steady gait
== END 2021-01-11 15:22 | disposition home or self-care (01) ==
PROVIDERS: Emergency Provider Emergency Medicine Emergency Medical Services; PCP Internal Medicine
DX: E10.65 Type 1 diabetes mellitus with hyperglycemia (principal); E86.0 Dehydration; R19.7 Diarrhea, unspecified
CPT/HCPCS: 36415; 80053; 81001; 82947; 83690; 85025; 96361; 96372; 96374; 99284

== ENCOUNTER → 2021-01-12 10:45 | Outpatient (BNVA) | payer OTHER, SELFPAY | PROVIDERS: PCP Internal Medicine; Visit Provider Nurse Practitioner Gerontology | DX: E11.9 Type 2 diabetes mellitus without complications (principal); I10 Essential (primary) hypertension | CPT/HCPCS: 82947; 99212 ==

== ENCOUNTER 2021-01-22 08:57 | Outpatient (REF) | payer OTHER, SELFPAY ==
[2021-01-22 12:00] LABS: Anion Gap 14 (12-20); Blood Urea Nitrogen 13 mg/dL (9-16); Calcium 8.7 mg/dL (8.4-10.2); Carbon Dioxide 24 mmol/L (22-29); Chloride 106 mmol/L (96-108); Estimated Glomerular Filt Rate > 60; Glucose Fasting 75 mg/dL (60-99); Potassium 3.9 mmol/L (3.3-5.1); Sodium 140 mmol/L (135-145)
[2021-01-22 12:07] LABS: Thyroid Stimulating Hormone 0.75 uIU/mL (0.32-4.0)
[2021-01-23 07:32] LABS: C Peptide < 0.10 ng/mL (0.80-3.85)
[2021-01-27 14:47] LABS: Glutamic acid decarboxylase Ab <5 IU/mL (<5)
[2021-01-31 23:22] LABS: Islet Cell Antibody Screen NEGATIVE (NEGATIVE)
== END 2021-01-22 08:58 | disposition home or self-care (01) ==
LOC: HO.HMGCLDS 08:57
PROVIDERS: Visit Provider Nurse Practitioner Gerontology
DX: E11.9 Type 2 diabetes mellitus without complications (principal)
CPT/HCPCS: 36415; 80048; 84443; 84681; 86255; 86341

== ENCOUNTER → 2021-02-16 07:24 | Outpatient (BNVA) | payer OTHER, SELFPAY | PROVIDERS: PCP Internal Medicine; Visit Provider Nurse Practitioner Gerontology | DX: E11.9 Type 2 diabetes mellitus without complications (principal); I10 Essential (primary) hypertension | CPT/HCPCS: 82947; 99212 ==

== ENCOUNTER 2021-02-19 09:10 | Outpatient (REF) | payer OTHER, SELFPAY ==
[2021-02-19 11:52] LABS: Anion Gap 13 (12-20); Blood Urea Nitrogen 11 mg/dL (9-16); Carbon Dioxide 24 mmol/L (22-29); Chloride 108 mmol/L (96-108); Estimated Glomerular Filt Rate > 60; Glucose Fasting 122 mg/dL (60-99); Potassium 4.1 mmol/L (3.3-5.1); Sodium 141 mmol/L (135-145)
== END 2021-02-19 09:11 | disposition home or self-care (01) ==
LOC: HO.HMGCLDS 09:10
PROVIDERS: PCP Internal Medicine; Visit Provider Internal Medicine
DX: K58.0 Irritable bowel syndrome with diarrhea (principal)
CPT/HCPCS: 36415; 80048

== ENCOUNTER 2021-02-23 06:49 | Outpatient (REF) | payer OTHER, SELFPAY ==
--- NOTE | ~2021-02-23 | CT_ITS ---
EXAMINATION: CT ABDOMEN AND PELVIS WITHOUT AND WITH CONTRAST CLINICAL INFORMATION: Disease of the pancreas COMPARISON: Previous CT of the abdomen June 2007, ultrasound of the abdomen September 2020 and MR of the abdomen November 2020 TECHNIQUE: Multidetector volumetric imaging was performed of the abdomen and pelvis before and after the IV administration of 100 mL of Omnipaque 300 intravenous contrast. Sagittal and coronal reformatted images were obtained on the technologist's workstation. This CT examination was performed using dose optimization techniques as appropriate, variously including the following: *Automated exposure control *Adjustment of mA and/or kV according to patient size (this includes techniques or standardized protocols for targeted exams where dose is matched to indication/reason for exam; i.e. extremities or head) *Use of iterative reconstruction technique DLP: 597 mGy-cm FINDINGS: LUNG BASES: There is subsegmental atelectasis at the lung bases. LIVER, GALLBLADDER, AND BILIARY TREE: The liver is normal in size, shape, and attenuation. No focal hepatic lesion or biliary ductal dilatation is present. The gallbladder is unremarkable with no evidence of radiopaque gallstones, gallbladder wall thickening, or obvious pericholecystic inflammatory changes. PANCREAS: There are multiple calcifications in the pancreas suggestive of changes of chronic pancreatitis. The main pancreatic duct is dilated measuring up to 13 mm. There are calcifications seen within the main pancreatic duct suggestive of pancreatic duct stones. The largest stone measures 1.1 cm. There are atrophic changes of the pancreas. There is a partially cystic, partially calcified area in the uncinate process of the head of the pancreas. This is difficult to separate from adjacent cysts and calcifications. This may measure up to 1.2 x 2.2 cm, axial image 43 series 8. It is uncertain whether this represents a dilated accessory pancreatic duct with stones or could represent cystic pancreatic lesion. No solid enhancing pancreatic lesion is seen. SPLEEN: Unremarkable ADRENAL GLANDS: Unremarkable KIDNEYS AND URETERS: There are bilateral renal cysts, largest measuring 2 cm in the right kidney. The kidneys are otherwise unremarkable. BLADDER: Unremarkable GASTROINTESTINAL TRACT: There is evidence of severe constipation. The appendix is not identified. The stomach is unremarkable. ABDOMINAL WALL: No significant hernia is appreciated. LYMPH NODES: Normal VASCULAR: There is evidence of atherosclerotic disease. PELVIC VISCERA: Unremarkable OSSEOUS STRUCTURES: There are degenerative changes of the spine. CT/CT abdomen pelvis wo/w con IMPRESSION: Chronic pancreatitis with atrophy of the pancreas, extensive calcifications and markedly dilated main pancreatic duct. Large main pancreatic duct stones. Question dilated accessory pancreatic duct in the head of the pancreas with cystic change in stones. It is difficult to exclude a cystic mass and continued imaging follow-up is recommended. Severe constipation.
[2021-02-23] MEDS: iohexoL 350 MG/ML 100 ML INFUS..BTL IV (08:42)
== END 2021-02-23 06:50 | disposition home or self-care (01) ==
LOC: HO.CT 06:49
PROVIDERS: PCP Internal Medicine; Visit Provider Physician Assistant
DX: K86.89 Other specified diseases of pancreas (principal)
CPT/HCPCS: 74178; Q9967

== ENCOUNTER → 2021-02-27 14:10 | Outpatient (BNVA) | payer OTHER, SELFPAY | PROVIDERS: PCP Internal Medicine; Visit Provider Physician Assistant ==

== ENCOUNTER → 2021-03-29 07:24 | Outpatient (BNVA) | payer OTHER, SELFPAY | PROVIDERS: PCP Internal Medicine; Visit Provider Nurse Practitioner Gerontology | DX: E55.9 Vitamin D deficiency, unspecified (principal); E08.65 Diabetes mellitus due to underlying condition with hyperglycemia; I10 Essential (primary) hypertension; Z79.4 Long term (current) use of insulin | CPT/HCPCS: 82947; 99212 ==

== ENCOUNTER → 2021-04-17 08:54 | Outpatient (BNVA) | payer OTHER, SELFPAY | PROVIDERS: PCP Internal Medicine; Visit Provider Dietitian, Registered | DX: E11.65 Type 2 diabetes mellitus with hyperglycemia (principal) | CPT/HCPCS: 97802 ==

== ENCOUNTER 2021-05-08 07:31 | Outpatient (REF) | payer OTHER, SELFPAY ==
[2021-05-08 11:17] LABS: MANUAL DIFF FLAG NO
[2021-05-08 11:25] LABS: Basophils Percent Auto 0.4 % (0-2); Eosinophils Percent Auto 20.4 % (0-4); Hematocrit 37.4 % (42-52); Hemoglobin 12.3 g/dl (14.0-18.0); Imm Gran Abs Auto 0.02 X10*3/uL (0.00-0.03); Imm Gran Pct Auto 0.2 % (0.0-0.4); Lymphocytes Absolute Auto 1.5 X10*3/uL (1.2-4.9); Lymphocytes Percent Auto 15.9 % (20-40); Mean Corpuscular HGB Conc 32.9 g/dl (31.0-36.0); Mean Corpuscular Hemoglobin 31.9 pg (27.0-33.0); Mean Corpuscular Volume 96.9 fL (80-98); Mean Platelet Volume 11.2 fL (9.4-12.4); Monocytes Absolute Auto 0.7 X10*3/uL (0.1-1.2); Monocytes Percent Auto 6.8 % (2-11); Neutrophils Absolute Auto 5.5 X10*3/uL (2.0-8.3); Neutrophils Percent Auto 56.3 % (45-73); Platelet Count 217 X10*3/uL (160-400); Red Blood Count 3.86 X10*6/uL (4.60-5.80); Red Cell Distribution Width 12.5 % (11.0-16.0); White Blood Count 9.7 X10*3/uL (4.8-10.8)
[2021-05-08 11:52] LABS: Alanine Aminotransferase 26 U/L (0-40); Anion Gap 13 (12-20); Aspartate Amino Transferase 21 U/L (5-37); Blood Urea Nitrogen 16 mg/dL (9-16); Carbon Dioxide 22 mmol/L (22-29); Chloride 109 mmol/L (96-108); Cholesterol 138 mg/dL; Estimated Glomerular Filt Rate > 60; Glucose Fasting 158 mg/dL (60-99); HDL Cholesterol 39 mg/dL; Iron 47 mcg/dL (45-160); LDL Cholesterol Calculated 87 mg/dl; Percent Iron Saturation 15 % (15-50); Potassium 4.1 mmol/L (3.3-5.1); Sodium 140 mmol/L (135-145); Total Iron Binding Capacity 305 mcg/dL (228-428); Triglycerides 61 mg/dL; Unsaturated Iron Binding 258 ug/dL
[2021-05-08 11:55] LABS: Ferritin 148 ng/mL (20-250); PSA,Total (Free>4and<10) 1.23 ng/mL (0.00-4.00); Vitamin D 25-OH Total 26.2 ng/mL (>30)
[2021-05-08 12:15] LABS: Folate 12.9 ng/mL (> or = 4.0); Vitamin B12 386 pg/mL (200-900)
== END 2021-05-08 07:32 | disposition home or self-care (01) ==
LOC: HO.HMGCLDS 07:31
PROVIDERS: PCP Internal Medicine; Visit Provider Internal Medicine
DX: E11.65 Type 2 diabetes mellitus with hyperglycemia (principal); E55.9 Vitamin D deficiency, unspecified; K86.89 Other specified diseases of pancreas; I10 Essential (primary) hypertension
CPT/HCPCS: 36415; 80048; 80061; 82306; 82607; 82728; 82746; 83540; 84153; 84450; 84460; 85025

== ENCOUNTER 2021-05-10 07:11 | Outpatient (REF) | payer OTHER, SELFPAY ==
[2021-05-10 11:00] LABS: Creatinine Urine 35.47 mg/dL; Microalbumin Urine < 5.0 mg/L
== END 2021-05-10 07:12 | disposition home or self-care (01) ==
LOC: CF 07:11
PROVIDERS: PCP Internal Medicine; Visit Provider Nurse Practitioner Gerontology
DX: E11.65 Type 2 diabetes mellitus with hyperglycemia (principal); E55.9 Vitamin D deficiency, unspecified; I10 Essential (primary) hypertension; Z79.4 Long term (current) use of insulin
CPT/HCPCS: 82043; 82947; 99212

== ENCOUNTER 2021-05-22 18:12 | Emergency (ER) | payer OTHER, SELFPAY ==
[2021-05-22 18:47] VITALS: BP 140/75; PULSE 58; RESP 16; TEMP 36.6; O2SAT 98; BMI 21.7
--- NOTE | 2021-05-22 20:04 | ED_ITS ---
HPI - Eye Problem General Chief complaint: Eye Problems Stated complaint: eye pain Time Seen by Provider: 05/22/21 19:33 Source: patient Mode of arrival: ambulatory Limitations: no limitations History of Present Illness HPI Narrative: Patient presents to ED for bilateral eye itchiness. Patient states for the past couple days every time he wakes up both his eyes are swollen shut. Patient denies any yellow/green discharge. Patient denies any runny nose or cough. Patient denies any eye pain. Patient denies any change in vision or recent trauma to the eye. Related Data Home Medications Medication Instructions Recorded Confirmed lisinopril 10 mg tablet 10 mg PO DAILY 08/02/20 05/10/21 Previous Rx's Medication Instructions Recorded blood sugar diagnostic (FreeStyle #100 ea 10/11/20 Lite Strips) blood-glucose meter (FreeStyle #1 ea 10/11/20 Lite Meter) lancets 28 gauge (FreeStyle #100 ea 20 Lancets) alcohol swabs (Alcohol Wipes) 1 pad TOPICAL TID #200 ea 01/11/21 [id number] 11.87861 cap PO TID #90 cap 01/11/21 6,000-19,000-30,000 unit capsule,delayed rel (Creon) pen needle, diabetic 32 gauge x #125 ea 01/12/21 5/32 (BD Ultra-Fine Kim Pen Needle) flash glucose sensor (FreeStyle #2 ea 02/08/21 Roz 2 Sensor) cholecalciferol (vitamin D3) 50 50 mcg PO DAILY #90 cap 05/10/21 mcg (2,000 unit) capsule insulin aspart U-100 100 unit/mL 3 - 15 unit SUBCUT TID #15 ml 05/10/21 (3 mL) subcutaneous pen (Novolog Flexpen U-100 Insulin aspart) insulin glargine 100 unit/mL (3 18 unit SUBCUT .qhs #15 ml 05/10/21 mL) subcutaneous pen (Lantus Solostar U-100 Insulin) Allergies Allergy/AdvReac Type Severity Reaction Status Date / Time No Known Allergies Allergy Verified 05/22/21 18:51 [No Known Allergies*] Review of Systems Constitutional: Constitutional: Reports as per HPI and Reports no additional constitutional complaints Eyes: Eyes: Reports as per HPI and Reports no additional eye complaints Comments: Itchy eyes. Bilateral eyelid swelling. ENT: Reports system reviewed and no additional complaints, except as documented and Reports as per HPI Cardiovascular: Cardiovascular: Reports as per HPI and Reports no additional cardiovascular complaints Respiratory: Respiratory: Reports as per HPI and Reports no additional respiratory complaints Gastrointestinal: Gastrointestinal: Reports as per HPI and Reports no additional gastrointestinal complaints Musculoskeletal: Musculoskeletal: Reports no additional musculoskeletal complaints and Reports as per HPI Neurologic: Reports system reviewed and no additional complaints, except as documented and Reports as per HPI Psychiatric: Psychiatric: Reports no additional psychiatric complaints and Reports as per HPI [facility] Past Medical History Medical History (Updated 05/22/21 @ 23:10 by DAVID Das) Alcohol abuse Anxiety disorder Calcification of gallbladder Chronic pancreatitis Diabetes mellitus with hyperglycemia, without long-term current use of insulin Dilated pancreatic duct Dry skin dermatitis Essential hypertension Gassiness Impaired fasting glucose Influenza vaccination declined Insomnia Irritable bowel syndrome with diarrhea Pancreatic calcification Pancreatic duct calculus Vitamin D deficiency Surgical History History of cervical fracture History of root canal procedure History of tonsillectomy and adenoidectomy History of wrist fracture Hx of colonoscopy Family History Family History Father Cirrhosis, alcoholic Mother Agoraphobia PNA (pneumonia) Mental illness in member of household Sister No problems noted. Son No problems noted. Son No problems noted. 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 Physical Exam Vital Signs: Vital Signs: Last Vital Signs Temp 97.9 F 05/22/21 18:47 Pulse 58 05/22/21 18:47 Resp 16 05/22/21 18:47 BP 140/75 H 05/22/21 18:47 Pulse Ox 98 05/22/21 18:47 Body Mass Index 21.7 Const: General: cooperative, healthy appearing, comfortable, no acute distress, well developed, alert and awake Orientation/consciousness: patient oriented x3 HENMT: Head: Yes normal to inspection, Yes No palpable skull fracture present, Yes normocephalic and Yes atraumatic Neck: Neck: Yes normal visual inspection, Yes full ROM, Yes no lymphadenopathy, Yes no meningeal signs, Yes trachea midline, Yes supple and No tender Chest: Chest palpation & inspection: normal inspection of the chest and normal palpation of entire chest wall Resp: Effort & Inspection: normal respiratory effort and able to speak in complete sentences Auscultation: clear to auscultation bilaterally Cardio: Jugular venous distension: no JVD GI: Inspection: Yes normal to inspection and No abdominal wall ecchymosis Palpation (GI): Soft to palpation, not firm, nontender, no guarding and not rigid : General: No CVA tenderness and Yes no CVA tenderness Back/Spine/Pelvis: Back: no CVA tenderness, No CVA tenderness and No back tenderness Skin: General skin exam: no rashes or lesions noted and elasticity normal Neuro: General: patient oriented x3, gait normal, no meningeal signs and CN's II-XI intact bilaterally Cranial nerves: Yes CN's II-XII intact bilaterally Extrem: General: Yes normal to inspection and Yes full ROM Course Course Course Narrative: Awaiting for fluorescein and tetracaine to perform eye test to evaluate for corneal abrasion. Reevaluation(s) Reevaluation #1: Patient left the ER before I could evaluate perform an eye exam. Patient cannot be found in the waiting room. Patient eloped MDM - Eye Problem MDM Narrative Medical decision making narrative: Patient eloped Discharge Plan Discharge Clinical Impression: Eye problem Patient Disposition: Elopement Prescriptions: No Action (DME) FreeStyle Roz 2 Sensor Kit See Rx Instructions .ROUTE .MEDSUPPLY Qty: 2 RF: 11 Creon 6,000-19,000 -30,000 unit capsule,delayed release(DR/EC) 11.77806 cap PO TID Qty: 90 RF: 0 alcohol swabs [Alcohol Wipes] Pads, Medicated 1 pad topical TID Qty: 200 RF: 0 lisinopril 10 mg tablet 10 mg PO DAILY RF: 0 (DME) blood-glucose meter [FreeStyle Lite Meter] Kit See Rx Instructions .ROUTE .MEDSUPPLY Qty: 1 RF: 0 (DME) FreeStyle Lite Strips Strip See Rx Instructions .ROUTE .MEDSUPPLY Qty: 100 RF: 5 (DME) lancets [FreeStyle Lancets] 28 gauge misc See Rx Instructions .ROUTE .MEDSUPPLY Qty: 100 RF: 0 (DME) pen needle, diabetic [BD Ultra-Fine Kim Pen Needle] 32 gauge x 5/32 needle See Rx Instructions .ROUTE .MEDSUPPLY Qty: 125 RF: 11 cholecalciferol (vitamin D3) 50 mcg (2,000 unit) capsule 50 mcg PO DAILY Qty: 90 RF: 3 insulin aspart U-100 [Novolog Flexpen U-100 Insulin] 100 unit/mL (3 mL) insulin pen 3 - 15 unit subcut TID Qty: 15 RF: 3 Lantus Solostar U-100 Insulin 100 unit/mL (3 mL) insulin pen 18 unit subcut .qhs Qty: 15 RF: 2 Interventions: ED Discharge Assessment Last Done: 05/22/21 20:41 Discharge Date/Time: 05/22/21 20:43
--- NOTE | 2021-05-22 20:22 | PC.NURSE ---
PT NO LONGER IN ROOM.
--- NOTE | 2021-05-22 20:23 | PC.NURSE ---
MEDICATION RETURNED TO [facility]. DAVID JAIME AWARE PT HAS LEFT NOT IN ANY BATHROOM.
== END 2021-05-22 20:43 | disposition left against medical advice (07) ==
PROVIDERS: Emergency Provider Emergency Medicine Emergency Medical Services; PCP Internal Medicine
DX: H57.89 Other specified disorders of eye and adnexa (principal); E11.9 Type 2 diabetes mellitus without complications; F17.210 Nicotine dependence, cigarettes, uncomplicated; Z79.4 Long term (current) use of insulin
CPT/HCPCS: 99282; 99283

== ENCOUNTER 2021-08-17 11:23 | Outpatient (REF) | payer OTHER, SELFPAY ==
[2021-08-17 15:56] LABS: Estimated Average Glucose 177 mg/dL; Hemoglobin A1c % 7.8 %
[2021-08-17 16:02] LABS: Alanine Aminotransferase 28 U/L (0-40); Albumin Level 4.6 g/dL (3.5-5.0); Alkaline Phosphatase 77 U/L (39-117); Anion Gap 11 (12-20); Aspartate Amino Transferase 20 U/L (5-37); Bilirubin Total 0.5 mg/dL (0.0-1.0); Blood Urea Nitrogen 19 mg/dL (9-16); Calcium 9.3 mg/dL (8.4-10.2); Carbon Dioxide 24 mmol/L (22-29); Chloride 110 mmol/L (96-108); Cholesterol 139 mg/dL; Estimated Glomerular Filt Rate > 60; Glucose Fasting 158 mg/dL (60-99); HDL Cholesterol 46 mg/dL; LDL Cholesterol Calculated 83 mg/dl; Potassium 4.6 mmol/L (3.3-5.1); Sodium 140 mmol/L (135-145); Triglycerides 53 mg/dL
[2021-08-17 16:16] LABS: Creatinine Urine 13.11 mg/dL; Microalbumin Urine < 5.0 mg/L
== END 2021-08-17 11:24 | disposition home or self-care (01) ==
LOC: HO.HMGCLDS 11:23
PROVIDERS: PCP Internal Medicine; Visit Provider Internal Medicine
DX: K86.89 Other specified diseases of pancreas (principal); E11.65 Type 2 diabetes mellitus with hyperglycemia; I10 Essential (primary) hypertension; K58.0 Irritable bowel syndrome with diarrhea; K82.8 Other specified diseases of gallbladder; E55.9 Vitamin D deficiency, unspecified
CPT/HCPCS: 36415; 80053; 80061; 82043; 82306; 83036

== ENCOUNTER → 2021-09-21 07:21 | Outpatient (BNVA) | payer OTHER, SELFPAY | PROVIDERS: PCP Internal Medicine; Visit Provider Nurse Practitioner Gerontology | DX: E55.9 Vitamin D deficiency, unspecified (principal); E08.65 Diabetes mellitus due to underlying condition with hyperglycemia; I10 Essential (primary) hypertension; Z79.4 Long term (current) use of insulin | CPT/HCPCS: 82947; 99212 ==

== ENCOUNTER → 2021-09-27 07:49 | Outpatient (BNVA) | payer OTHER, SELFPAY | PROVIDERS: PCP Internal Medicine; Visit Provider Registered Nurse Diabetes Educator | DX: E11.65 Type 2 diabetes mellitus with hyperglycemia (principal); Z79.4 Long term (current) use of insulin | CPT/HCPCS: 99211 ==

== ENCOUNTER 2021-11-06 09:11 | Outpatient (REF) | payer OTHER, SELFPAY ==
[2021-11-06 11:32] LABS: Hematocrit 41.3 % (42.0-52.0); Hemoglobin 13.6 g/dl (14.0-18.0); Mean Corpuscular HGB Conc 32.9 g/dl (31.0-36.0); Mean Corpuscular Hemoglobin 30.4 pg (27.0-33.0); Mean Corpuscular Volume 92.2 fL (80.0-98.0); Mean Platelet Volume 11.1 fL (9.4-12.4); Platelet Count 219 X10*3/uL (160-400); Red Blood Count 4.48 X10*6/uL (4.60-5.80); Red Cell Distribution Width 12.9 % (11.0-16.0); White Blood Count 5.8 X10*3/uL (4.8-10.8)
[2021-11-06 12:09] LABS: Alanine Aminotransferase 30 U/L (0-40); Albumin Level 4.5 g/dL (3.5-5.0); Alkaline Phosphatase 75 U/L (39-117); Anion Gap 12 (12-20); Aspartate Amino Transferase 22 U/L (5-37); Bilirubin Direct 0.2 mg/dL (0.0-0.5); Bilirubin Total 0.4 mg/dL (0.0-1.0); Blood Urea Nitrogen 14 mg/dL (9-16); C Reactive Protein 0.02 mg/dL (< or = 0.50); Calcium 9.6 mg/dL (8.4-10.2); Carbon Dioxide 26 mmol/L (22-29); Chloride 107 mmol/L (96-108); Estimated Glomerular Filt Rate > 60; Glucose Random 168 mg/dL (60-115); Potassium 4.5 mmol/L (3.3-5.1); Sodium 140 mmol/L (135-145)
[2021-11-06 12:13] LABS: Erythrocyte Sedimentation Rate 5 MM/HR (0-15)
== END 2021-11-06 09:12 | disposition home or self-care (01) ==
LOC: HO.HMGCLDS 09:11
PROVIDERS: PCP Internal Medicine; Visit Provider Internal Medicine
DX: M54.2 Cervicalgia (principal)
CPT/HCPCS: 36415; 80048; 80076; 85027; 85652; 86140

== ENCOUNTER 2021-11-26 12:52 | Outpatient (REF) | payer OTHER, SELFPAY ==
--- NOTE | ~2021-11-26 | CT_ITS ---
EXAMINATION: CT CHEST SCREENING CLINICAL INFORMATION: Smoking history COMPARISON: Previous chest CT May 2020 TECHNIQUE: Multidetector volumetric CT imaging of the chest is performed without contrast using low dose technique. Additional 2D coronal and sagittal reformatted images and axial 3D maximum intensity projection (MIP) images are generated on the CT workstation. This CT examination was performed using dose optimization techniques as appropriate, variously including the following: *Automated exposure control *Adjustment of mA and/or kV according to patient size (this includes techniques or standardized protocols for targeted exams where dose is matched to indication/reason for exam; i.e. extremities or head) *Use of iterative reconstruction technique DLP: 222 mGy-cm FINDINGS: LUNGS: There is evidence of mild emphysema. No endobronchial or endotracheal lesion is seen. There are small pulmonary nodules that are stable. Largest pulmonary nodule measures 4 mm in the right lower lobe axial image 260 series 5. No new pulmonary nodule is seen. There is scarring or chronic subsegmental atelectasis at the lung bases. MEDIASTINUM: There is mild coronary artery calcification. The mediastinum is otherwise normal. PLEURA: There is no pleural effusion. No pleural mass or thickening. AXILLA: No lymphadenopathy. UPPER ABDOMEN: There are calcifications seen throughout the pancreas suggestive of evidence of chronic pancreatitis. The main pancreatic duct appears very dilated measuring up to 1.2 cm. This is unchanged. There is a 2 cm low-attenuation lesion in the right kidney that is stable and probably represents a cyst. OSSEOUS STRUCTURES: There are degenerative changes of the spine. There is slight loss of height of several midthoracic vertebral bodies questionable for mild compression fractures. There are postsurgical changes to the lower cervical spine. CT/CT lung screening IMPRESSION: Emphysema. Stable small pulmonary nodules. ASSESSMENT: Lung-RADS category 2: Benign RECOMMENDATION: Annual low-dose chest CT follow-up recommended.
== END 2021-11-26 12:53 | disposition home or self-care (01) ==
LOC: HO.CT 12:52
PROVIDERS: Visit Provider Physician Assistant Medical
DX: Z12.2 Encounter for screening for malignant neoplasm of respiratory organs (principal); F17.210 Nicotine dependence, cigarettes, uncomplicated
CPT/HCPCS: 71271

== ENCOUNTER → 2021-12-24 07:20 | Outpatient (BNVA) | payer OTHER, SELFPAY | PROVIDERS: PCP Internal Medicine; Visit Provider Nurse Practitioner Gerontology | DX: I10 Essential (primary) hypertension (principal); E08.65 Diabetes mellitus due to underlying condition with hyperglycemia; E55.9 Vitamin D deficiency, unspecified; Z79.4 Long term (current) use of insulin | CPT/HCPCS: 82947; 99212 ==

== ENCOUNTER → 2022-06-06 08:54 | Outpatient (BNVA) | payer OTHER, SELFPAY | PROVIDERS: PCP Internal Medicine; Visit Provider Internal Medicine Endocrinology, Diabetes & Metabolism | DX: E13.9 Other specified diabetes mellitus without complications (principal); S36.209S Unspecified injury of unspecified part of pancreas, sequela; Z79.4 Long term (current) use of insulin | CPT/HCPCS: 82947; 83036; 99212 ==

== ENCOUNTER → 2022-06-07 07:57 | Outpatient (BNVA) | payer OTHER, SELFPAY | PROVIDERS: PCP Internal Medicine; Visit Provider Registered Nurse Diabetes Educator | DX: E13.9 Other specified diabetes mellitus without complications (principal); S36.209S Unspecified injury of unspecified part of pancreas, sequela; Z79.4 Long term (current) use of insulin | CPT/HCPCS: 99211 ==

== ENCOUNTER 2022-07-08 09:35 | Outpatient (REF) | payer OTHER, SELFPAY ==
[2022-07-08 11:22] LABS: MANUAL DIFF FLAG NO
[2022-07-08 11:38] LABS: Basophils Percent Auto 0.4 % (0-2); Eosinophils Percent Auto 0.9 % (0-4); Hematocrit 39.6 % (42.0-52.0); Hemoglobin 13.1 g/dl (14.0-18.0); Imm Gran Abs Auto 0.01 X10*3/uL (0.00-0.03); Imm Gran Pct Auto 0.2 % (0.0-0.4); Lymphocytes Absolute Auto 1.1 X10*3/uL (1.2-4.9); Lymphocytes Percent Auto 23.8 % (20-40); Mean Corpuscular HGB Conc 33.1 g/dl (31.0-36.0); Mean Corpuscular Hemoglobin 29.8 pg (27.0-33.0); Mean Corpuscular Volume 90.2 fL (80.0-98.0); Mean Platelet Volume 11.2 fL (9.4-12.4); Monocytes Absolute Auto 0.5 X10*3/uL (0.1-1.2); Monocytes Percent Auto 10.9 % (2-11); Neutrophils Percent Auto 63.8 % (45-73); Platelet Count 197 X10*3/uL (160-400); Red Blood Count 4.39 X10*6/uL (4.60-5.80); Red Cell Distribution Width 12.4 % (11.0-16.0); White Blood Count 4.7 X10*3/uL (4.8-10.8)
[2022-07-08 12:46] LABS: Microalbumin Urine < 5.0 mg/L
[2022-07-08 12:58] LABS: Alanine Aminotransferase 23 U/L (0-40); Anion Gap 15 (12-20); Aspartate Amino Transferase 21 U/L (5-37); Blood Urea Nitrogen 14 mg/dL (9-16); Calcium 9.3 mg/dL (8.4-10.2); Carbon Dioxide 21 mmol/L (22-29); Chloride 111 mmol/L (96-108); Cholesterol 154 mg/dL; Estimated Glomerular Filt Rate > 60; Glucose Fasting 173 mg/dL (60-99); HDL Cholesterol 42 mg/dL; Iron 93 mcg/dL (45-160); LDL Cholesterol Calculated 98 mg/dl; Percent Iron Saturation 28 % (15-50); Potassium 4.5 mmol/L (3.3-5.1); Sodium 142 mmol/L (135-145); Total Iron Binding Capacity 329 mcg/dL (228-428); Triglycerides 72 mg/dL; Unsaturated Iron Binding 236 ug/dL
[2022-07-08 13:06] LABS: Vitamin D 25-OH Total 29.3 ng/mL (>30)
== END 2022-07-08 09:36 | disposition home or self-care (01) ==
LOC: HO.HMGCLDS 09:35
PROVIDERS: PCP Internal Medicine; Visit Provider Internal Medicine
DX: Z00.01 Encounter for general adult medical examination with abnormal findings (principal); E13.9 Other specified diabetes mellitus without complications; E55.9 Vitamin D deficiency, unspecified; F41.9 Anxiety disorder, unspecified; G47.00 Insomnia, unspecified; S36.209S Unspecified injury of unspecified part of pancreas, sequela; I10 Essential (primary) hypertension
CPT/HCPCS: 36415; 80048; 80061; 82043; 82306; 83540; 84450; 84460; 85025

== ENCOUNTER → 2022-09-26 07:46 | Outpatient (BNVA) | payer OTHER, SELFPAY | PROVIDERS: PCP Internal Medicine; Visit Provider Internal Medicine Endocrinology, Diabetes & Metabolism | DX: E13.9 Other specified diabetes mellitus without complications (principal); S36.209S Unspecified injury of unspecified part of pancreas, sequela; Z79.4 Long term (current) use of insulin | CPT/HCPCS: 82947; 83036; 99212 ==

== ENCOUNTER → 2023-03-25 07:54 | Outpatient (BNVA) | payer OTHER, SELFPAY | PROVIDERS: PCP Internal Medicine; Visit Provider Internal Medicine Endocrinology, Diabetes & Metabolism | DX: E13.9 Other specified diabetes mellitus without complications (principal); S36.209S Unspecified injury of unspecified part of pancreas, sequela | CPT/HCPCS: 82947; 83036; 99212 ==

== ENCOUNTER → 2023-07-03 07:50 | Outpatient (AMB) | payer OTHER, SELFPAY ==
[2023-07-03 08:01] VITALS: BP 122/80; PULSE 81; O2SAT 98; BMI 23.0
--- NOTE | 2023-07-03 08:01 | MHC.PC.OV ---
Vital Signs 07/03/23 08:01 Height 6 ft Weight 169 lb 8 oz BMI 23.0 BP 122/80 Blood Pressure Location Rt brachial Position Sitting Pulse 81 Pulse Source Pulse Oximeter Pulse Oximetry (%) 98 Oxygen Delivery Method Room Air Intake Visit Reasons: annnual pe Intake Note: pt is here for a pe Allergies No Known Allergies [No Known Allergies*] Allergy (Verified 07/03/23 08:17) Medication List - Last Reconciled 07/03/23 by Karely Velásquez MD alcohol swabs (Alcohol Wipes) 1 pad topical TID blood sugar diagnostic (FreeStyle Lite Strips) Check blood sugar as directed twice a day before meals blood-glucose meter (FreeStyle Lite Meter kit) Check blood sugar as directed before meals twice a day cholecalciferol (vitamin D3) 50 mcg PO DAILY flash glucose scanning reader (FreeStyle Roz 2 [place]) As directed flash glucose sensor (FreeStyle Roz 2 Sensor kit) As directed every 2 weeks insulin glargine (Lantus Solostar U-100 Insulin) 20 - 24 units (0.2 - 0.24 mL) subcut BEDTIME insulin lispro (Humalog KwikPen (U-100) Insulin) inject 3-15 units subcutaneously 3 times a day; lancets (FreeStyle Lancets) Check blood sugar twice a day as directed before meals gnzvgy-[id number]-[id number] 6,000-19,000 -30,000 unit (Creon) 11.23879 caps PO TID lisinopril 10 mg PO DAILY pen needle, diabetic (BD Ultra-Fine Kim Pen Needle) As directed four times a day Tobacco use date assessed: 07/03/23 Dental Screening Dental Screen Date: 07/03/23 Did you have a dental visit in the last 12 months?: Yes Did you have a dental problem in the last 6 months where you did not have access to dental care?: No Was dental information given to patient?: Patient has dentist HPI annnual pe HPI Details 57-year-old male here today for his physical exam. He has diabetes mellitus, currently on Lantus at bedtime, and NovoLog mealtime insulin with latest hemoglobin A1c at 7.3%. He has been diagnosed to have chronic pancreatitis, pancreatolithiasis with the largest stone at 1.5 cm and dilated main pancreatic duct to 13 mm, as noted on CT scan done May of 2021, currently on Creon. Patient states however that he needs to be referred to a new GI doctor, as his doctor at the [facility] has moved out of that practice. Denies any abdominal pain however he has been having intermittent episodes of nausea with 1 episode of vomiting this morning. Denies any accompanying fever, and symptoms unrelated to food intake, no alteration in bowel movements reported. He however has been having intermittent episodes of urinary frequency, urgency and lower abdominal spasms. He is up-to-date with his screening colonoscopy done by Dr. Vences in 2016 with normal findings, repeat again in 2026. He has hypertension currently on lisinopril 10 mg once a day with good blood pressure control seen. He also has been having intermittent episodes of numbness and tingling on face, and on the roof of the mouth, sensation of burning on sides of his tongue, which has been present now for the last several weeks. 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 Son No problems noted. Son No problems noted. 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 1. Little interest or pleasure in doing things: several days 2. Feeling down, depressed, or hopeless: several days 3. Trouble falling or staying asleep, or sleeping too much: several days 4. Feeling tired or having little energy: several days 5. Poor appetite or overeating: not at all 6. Feeling bad about yourself - or that you are a failure or have let yourself or your family down: not at all 7. Trouble concentrating on things, such as reading the newspaper or watching television: not at all 8. Moving or speaking so slowly that other people could have noticed. Or the opposite - being so fidgety or restless that you have been moving around a lot more than usual: not at all 9. Thoughts that you would be better off or of hurting yourself in some way: not at all Total score: 4 Depression Screening Interpretation: Positive Depression Screening Follow-up: Declines treatment 57653 - PHQ-9 Billing: Yes Source: Developed by Drs. Samy Rubio, Fallon Connell, Thang Davis and colleagues, with an educational freya from [employer]. Thrive Questionnaire Date Thrive assessed: 07/03/23 I am a: Patient What is your living situation today?: I have a steady place to live Within the past 12 months, did the food you bought not last and you didn't have the money to get more?: Never true Within the past 12 months, did you worry whether your food would run out before you got money to buy more?: Never true Do you have trouble paying for medicines?: No Do you have trouble getting transportation to medical appointments?: No Do you have trouble paying your heating and electricity bill?: No Do you have trouble taking care of your child, family member or friend?: No Do you have trouble with day-to-day activities such as bathing, preparing meals, shopping, managing finances, etc.?: No Are you currently unemployed and looking for a job?: No Are you interested in more education?: No AUDIT C Alcohol Use Questionnaire (AUDIT-C) 1. How often do you have a drink containing alcohol?: Never (Former alcohol) Total Score: 0 CHELSEA-7 AMB Questionnaire CHELSEA-7 Date CHELSEA - 7 assessed: 10/24/21 Feeling nervous, anxious, or on edge: 1 = Several days Not being able to stop or control worryin = More than half the days Worrying too much about different things: 1 = Several days Trouble relaxin = More than half the days Being so restless that it is hard to sit still: 2 = More than half the days Becoming easily annoyed or irritable: 1 = Several days Feeling afraid as if something awful might happen: 0 = Not at all Total CHELSEA-7 score (0-4 normal; 5-9 mild; 10-14 moderate; 15-21 severe): 9 Source: Developed by Drs. Samy Rubio, Fallon Connell, Thang Davis and colleagues, with an educational freya from [employer]. CHELSEA-7 Assessment Billing CHELSEA-7 Assessment Tool: CHELSEA-7 Assessment 56747 Review of Systems Const Denies body aches, Denies fatigue, Denies fever(s), Denies headache(s) and Denies weakness Eyes Details: goes to eye and [facility] with eye exam , per pt Denies change in vision ENT Denies dizziness, Denies headache(s), Denies nasal congestion, Denies nasal discharge and Denies sore throat Card Denies chest pain, Denies lightheadedness, Denies palpitations and Denies dyspnea Resp Denies chest congestion, Denies cough, Denies dyspnea and Denies wheezing GI Denies abdominal pain, Denies change in bowel habits and Denies heartburn Denies hematuria Musc Reports no additional complaints Skin/Breast Denies lesions and Denies rash Neuro Denies dizziness, Denies headache(s) and Denies weakness Psych Reports as per HPI Endo Denies fatigue, Denies polydipsia and Denies palpitations Duncan/Lymph Denies easy bruising Aller/Immun Denies seasonal rhinorrhea and Denies wheezing Physical exam (Primary Care) Vital Signs: Last Vital Signs Pulse 81 07/03/23 08:01 BP 122/80 07/03/23 08:01 Pulse Ox 98 07/03/23 08:01 Oxygen Delivery Method Room Air 07/03/23 08:01 BMI result Body Mass Index 23.0 Tobacco/Smoking Status: Tobacco use Status Tobacco use date assessed 07/03/23 07/03/23 08:06 Patient Tobacco Use Status Former Tobacco user 07/03/23 08:06 Tobacco use type Cigarette 07/03/23 08:06 e-Cigarette/Vaping Use Currently Using 07/03/23 08:06 PHQ-9: PHQ-9 Score PHQ-9: Total score 4 07/03/23 09:02 Depression Screening Interpretation: Positive Depression Screening Follow-up: Declines treatment Thrive Assessment: Date of Thrive Assessment Date Thrive assessed 07/03/23 07/03/23 09:02 Const General: cooperative, comfortable and no acute distress Orientation/consciousness: patient oriented x3 Limitations: no limitations HENMT Head: Yes normocephalic Ears: hearing grossly normal bilaterally, TM's normal bilaterally and EAC's normal General nose exam: Normal external nose present and No nasal discharge present Mouth: lip normal, tongue normal and oropharynx normal Eyes General: appearance normal, both eyes and all related structures Neck Neck: Yes full ROM, Yes no lymphadenopathy and Yes supple Resp Effort & Inspection: normal respiratory effort and able to speak in complete sentences Auscultation: clear to auscultation bilaterally Cardio Other: S1-S2 present regular rate and rhythm GI Inspection: Yes normal to inspection Palpation (GI): Soft to palpation, nontender, no guarding, no masses and No Ascites present General: Yes no CVA tenderness Male General Exam: Yes normal external exam Penis: normal penis Back/Spine/Pelvis Back: no CVA tenderness and No back tenderness Skin General skin exam: no rashes or lesions noted and no jaundice Neuro General: patient oriented x3, gait normal, moves all extremities, Normal light touch and pain sensation, no focal motor deficits and CN's II-XI intact bilaterally Extrem General: Yes full ROM, Yes no joint enlargement, Yes no pedal edema and Yes normal gait Psych Appearance: grossly normal Mental Status: mental status grossly normal Speech and movement: Normal speech and movement present Affect: normal affect Attitude: cooperative Results AMB Urinalysis, Automated UA Leukoctes 70 Ez/uL Last Edit by Diane Taylor CMA on 07/03/23 08:48 UA Nitrite Negative Last Edit by Diane Taylor CMA on 07/03/23 08:48 UA Urobilinogen 0.2 mg/dL Last Edit by Diane Taylor CMA on 07/03/23 08:48 UA Protein 0 mg/dL Last Edit by Diane Taylor, VIPUL on 07/03/23 08:48 UA pH 6.0 Last Edit by Diane Taylor, VIPUL on 07/03/23 08:48 UA Blood 0 Ra/uL Last Edit by Diane Taylor, VIPUL on 07/03/23 08:48 UA Specific [place] 1.005 Last Edit by Diane Taylor, VIPUL on 07/03/23 08:48 UA Ketone Positive Last Edit by Diane Taylor, VIPUL on 07/03/23 08:48 UA Bilirubin 0 mg/dL Last Edit by Diane Taylor, VIPUL on 07/03/23 08:48 UA Glucose 0 mg/dL Last Edit by Diane Taylor, VIPUL on 07/03/23 08:48 Results Reviewed Results Reviewed: Laboratory Last Values Urine pH (Auto) 6.0 07/03/23 08:46 Specific [place] (Auto) 1.005 07/03/23 08:46 Urine Protein (Auto) 0 mg/dL 07/03/23 08:46 Glucose (UA)(Auto) 0 mg/dL 07/03/23 08:46 Urine Ketones (Auto) Positive 07/03/23 08:46 Urine Blood (Auto) 0 Ra/uL 07/03/23 08:46 Urine Nitrite (Auto) Negative 07/03/23 08:46 Urine Bilirubin (Auto) 0 mg/dL 07/03/23 08:46 Urine Urobilinogen (Auto) 0.2 mg/dL 07/03/23 08:46 Leukocyte Esterase (Auto) 70 Ez/uL 07/03/23 08:46 Assessment and Plan Assessment & Plan (1) Annual visit for general adult medical examination with abnormal findings: Code(s): Z00.01 - Encounter for general adult medical examination with abnormal findings Plan: Will check appropriate labs. Continue regular dental visit every 6 months and regular yearly eye exams, goes [facility] [place] [place] [facility] in [place]. Take adequate calcium in diet and vitamin-D 3 at 2000 IU per cap once a day, in addition to weight-bearing exercises to help maintain good muscle tone and weight control. Instructed to do self testicular exam to check for any mass hands getting any vaccines peer up-to-date with his colonoscopy due again in 2026 (2) Dysuria: Code(s): R30.0 - Dysuria Plan: Urinalysis showed positive leukocytes, urine sent for culture and sensitivity, empirically started on ciprofloxacin for possible urinary tract infection, (3) Urinary frequency: Code(s): R35.0 - Frequency of micturition (4) Urinary hesitancy: Code(s): R39.11 - Hesitancy of micturition (5) Diabetes mellitus with hyperglycemia, without long-term current use of insulin: Code(s): E11.65 - Type 2 diabetes mellitus with hyperglycemia Qualifiers: Diabetes mellitus type: type 2 Qualified Code(s): E11.65 - Type 2 diabetes mellitus with hyperglycemia Plan: Recent lab results reviewed with patient, with sugar and hemoglobin A1c not at goal of less than 7%. continue to check fasting blood sugar at home, maintain log and bring to next appointment for review. Reinforced diabetic diet and regular exercise with patient. Counseled regarding importance of yearly diabetes retinopathy screening. Patient advised to inspect feet daily, for any signs of injury, callus or infection. Compliance with diet and regular exercise again stressed. Blood pressure goal is less than 130/80, goal LDL is less than 100 and goal hemoglobin A1c is less than 7% follow-up appointment made in--3-months, after fasting labs done. (6) Pancreatic calcification: Code(s): K86.89 - Other specified diseases of pancreas Plan: Referred to [facility] for follow-up. Previously was being seen at [facility], but provider there has left practice. Continue sustained abstinence from alcohol continue Creon (7) Essential hypertension: Code(s): I10 - Essential (primary) hypertension Plan: Blood pressure at goal of less than 130/80. Continue with current medication. Reinforced importance of following a low sodium diet, getting regular exercise, and lowering stress levels. (8) Tongue burning sensation: Code(s): K14.6 - Glossodynia Plan: Neurology consult ordered further evaluation, has seen Dr. Cheng in 2019, with CT of head showing no acute pathology (9) Numbness and tingling: Comment: cheeks and roof of mouth Code(s): R20.0 - Anesthesia of skin; R20.2 - Paresthesia of skin (10) Chronic pancreatitis: Code(s): K86.1 - Other chronic pancreatitis (11) Pancreatic duct calculus: Code(s): K86.89 - Other specified diseases of pancreas (12) Dilated pancreatic duct: Comment: Repeat CT-pancreatic protocol in February follow-up with Dr. Hunter, abstain from alcohol Code(s): K86.89 - Other specified diseases of pancreas (13) Anxiety and depression: Code(s): F41.9 - Anxiety disorder, unspecified; F32.A - Depression, unspecified Plan: Patient declines treatment, states able to control it on his own (14) COVID-19 vaccination declined: Code(s): Z28.21 - Immunization not carried out because of patient refusal (15) Refused influenza vaccine: Code(s): Z28.21 - Immunization not carried out because of patient refusal Orders: Orders UA CC w/rflx Micro + Cult Today R30.0 - Dysuria, R35.0 - Frequency of micturition, R39.11 - Hesitancy of micturition Microalbumin, Random (w Creat) Today E11.65 - Type 2 diabetes mellitus with hyperglycemia, I10 - Essential (primary) hypertension, K86.89 - Other specified diseases of pancreas, Z00.01 - Encounter for general adult medical examination with abnormal findings Lipase Today E11.65 - Type 2 diabetes mellitus with hyperglycemia, I10 - Essential (primary) hypertension, K86.89 - Other specified diseases of pancreas, Z00.01 - Encounter for general adult medical examination with abnormal findings Amylase Today E11.65 - Type 2 diabetes mellitus with hyperglycemia, I10 - Essential (primary) hypertension, K86.89 - Other specified diseases of pancreas, Z00.01 - Encounter for general adult medical examination with abnormal findings Complete Blood Count Auto Diff Today E11.65 - Type 2 diabetes mellitus with hyperglycemia, I10 - Essential (primary) hypertension, K86.89 - Other specified diseases of pancreas, Z00.01 - Encounter for general adult medical examination with abnormal findings CT NG by PCR Today R30.0 - Dysuria, R35.0 - Frequency of micturition, R39.11 - Hesitancy of micturition Comprehensive Dawson. Panel Fast Today E11.65 - Type 2 diabetes mellitus with hyperglycemia, I10 - Essential (primary) hypertension, K86.89 - Other specified diseases of pancreas, Z00.01 - Encounter for general adult medical examination with abnormal findings Hemoglobin A1c Today E11.65 - Type 2 diabetes mellitus with hyperglycemia, I10 - Essential (primary) hypertension, K86.89 - Other specified diseases of pancreas, Z00.01 - Encounter for general adult medical examination with abnormal findings AMB Urinalysis Automated Today Z13.9 - Encounter for screening, unspecified Referrals Gastroenterology Referral K86.1 - Other chronic pancreatitis, K86.89 - Other specified diseases of pancreas Neurology Referral K14.6 - Glossodynia, R20.0 - Anesthesia of skin, R20.2 - Paresthesia of skin Medications: New ciprofloxacin HCl 500 mg PO Q12H 7 days 14 tabs 0RF Coding Level of Care Code Est Pt Prev Care 40-64y(45248) Diagnoses Annual visit for general adult medical examination with abnormal findings Z00.01 Dysuria R30.0 Urinary frequency R35.0 Urinary hesitancy R39.11 Type 2 diabetes mellitus with hyperglycemia, without long-term current use of insulin E11.65 Diabetes mellitus type: type 2 Pancreatic calcification K86.89 Essential hypertension I10 Tongue burning sensation K14.6 Numbness and tingling R20.0; R20.2 Chronic pancreatitis K86.1 Pancreatic duct calculus K86.89 Dilated pancreatic duct K86.89 Anxiety and depression F41.9; F32.A COVID-19 vaccination declined Z28.21 Refused influenza vaccine Z28.21 Additional Codes CHELSEA-7 Assessment Billing - CHELSEA-7 Assessment Tool: CHELSEA-7 Assessment 92116 ([id number])
== END ==
PROVIDERS: Visit Provider Internal Medicine
DX: R35.0 Frequency of micturition (principal); R39.11 Hesitancy of micturition; R30.0 Dysuria
CPT/HCPCS: 81003; 99396

== ENCOUNTER 2023-07-03 08:33 | Outpatient (REF) | payer OTHER, SELFPAY ==
[2023-07-03 12:43] LABS: Appearance Urine Clear; Color Urine Yellow; Glucose Urine UA Negative (Negative); Leukocyte Esterase Urine Moderate (2+) (Negative); Nitrite Urine Negative (Negative); PH 5.5 (5.0-9.0); Specific Gravity - Urine <= 1.005 (1.005-1.025); UMIC TRIGGER UACC YES; Urine Blood Negative (Negative); Urine Ketones Trace mg/dL (Negative); Urine Protein Negative (Neg-Trace)
[2023-07-03 12:45] LABS: Bacteria Urine None Seen (None Seen); Hyaline Casts Urine 0-2 /LPF (0-2); RBC Urine 0-2 /HPF (0-2); Squamous Epithelial Cell Urine 0-2 /HPF (0-2); UACC Culture Trigger YES; WBC Urine 21-50 /HPF (0-5)
[2023-07-03 14:05] LABS: Creatinine Urine 14.96 mg/dL; Microalbum/Creatinine Ratio Ur 173.7 ug/mg cr (<30)
[2023-07-03 17:13] LABS: CT PCR NOT DETECTED (Not Detect.); NG PCR NOT DETECTED (Not Detect.)
== END 2023-07-03 08:34 | disposition home or self-care (01) ==
LOC: HO.LAB 08:33
PROVIDERS: Visit Provider Internal Medicine
DX: Z00.01 Encounter for general adult medical examination with abnormal findings (principal); R30.0 Dysuria; R35.0 Frequency of micturition; R39.11 Hesitancy of micturition; E11.65 Type 2 diabetes mellitus with hyperglycemia; K86.89 Other specified diseases of pancreas; I10 Essential (primary) hypertension
CPT/HCPCS: 0353U; 81001; 82043; 82570; 87086

== ENCOUNTER 2023-07-03 08:58 | Outpatient (REF) | payer OTHER, SELFPAY ==
[2023-07-03 11:49] LABS: Basophils Percent Auto 0.3 % (0-2); Hematocrit 42.1 % (42.0-52.0); Imm Gran Abs Auto 0.11 X10*3/uL (0.00-0.03); Imm Gran Pct Auto 0.8 % (0.0-0.4); Lymphocytes Absolute Auto 0.9 X10*3/uL (1.2-4.9); MANUAL DIFF FLAG SCAN; Mean Corpuscular HGB Conc 33.3 g/dl (31.0-36.0); Mean Corpuscular Hemoglobin 30.2 pg (27.0-33.0); Mean Corpuscular Volume 90.7 fL (80.0-98.0); Mean Platelet Volume 11.4 fL (9.4-12.4); Monocytes Absolute Auto 1.6 X10*3/uL (0.1-1.2); Monocytes Percent Auto 11.3 % (2-11); Neutrophils Absolute Auto 11.8 x10*3/uL (2.0-8.3); Neutrophils Percent Auto 81.6 % (45-73); Platelet Count 182 X10*3/uL (160-400); Red Blood Count 4.64 X10*6/uL (4.60-5.80); Red Cell Distribution Width 12.2 % (11.0-16.0); SCAN SMEAR FLAG 1; White Blood Count 14.4 X10*3/uL (4.8-10.8)
[2023-07-03 12:07] LABS: Alanine Aminotransferase 16 U/L (0-40); Albumin Level 4.2 g/dL (3.5-5.0); Alkaline Phosphatase 87 U/L (39-117); Anion Gap 12 (12-20); Aspartate Amino Transferase 14 U/L (5-37); Bilirubin Total 0.8 mg/dL (0.0-1.0); Blood Urea Nitrogen 9 mg/dL (9-16); Calcium 9.7 mg/dL (8.4-10.2); Carbon Dioxide 26 mmol/L (22-29); Chloride 99 mmol/L (96-108); Estimated Glomerular Filt Rate > 60; Glucose Fasting 214 mg/dL (60-99); Lipase 12 U/L (8-78); Potassium 4.3 mmol/L (3.3-5.1); Sodium 133 mmol/L (135-145); Total Protein 7.3 g/dL (6.5-8.0)
[2023-07-03 12:21] LABS: Estimated Average Glucose 163 mg/dL; Hemoglobin A1c % 7.3 % (<6.0)
[2023-07-03 12:27] LABS: Amylase 19 U/L (28-100)
[2023-07-03 12:37] LABS: SLIDE REVIEW VERIFIED
== END 2023-07-03 08:59 | disposition home or self-care (01) ==
LOC: HO.HMGCLDS 08:58
PROVIDERS: PCP Internal Medicine; Visit Provider Internal Medicine
DX: Z00.01 Encounter for general adult medical examination with abnormal findings (principal); E11.65 Type 2 diabetes mellitus with hyperglycemia; K86.89 Other specified diseases of pancreas; I10 Essential (primary) hypertension; R30.0 Dysuria; R35.0 Frequency of micturition; R39.11 Hesitancy of micturition
CPT/HCPCS: 36415; 80053; 82150; 83036; 83690; 85025

== ENCOUNTER 2023-07-10 08:08 | Outpatient (AMB) | payer OTHER, SELFPAY ==
--- NOTE | 2023-07-10 08:17 | AM.OFFWIN_ITS ---
Intake Vital Signs 07/10/23 08:18 Weight 169 lb 2 oz BP 130/80 Blood Pressure Location Lt brachial Position Sitting Pulse 70 Pulse Source Pulse Oximeter Pulse Oximetry (%) 98 Oxygen Delivery Method Room Air Intake Visit Reasons: Re eval medication Intake Note: Patient here because he has been getting treated for a UTI but has not gone away. he states its very painful when urinating, pressure and has been like this for about 10 days. Patient Tobacco Use Status: Former Tobacco user Allergies No Known Allergies [No Known Allergies*] Allergy (Verified 07/10/23 08:20) Do you need a note to return to daycare/school/sports/work: No HPI HPI Comments 2 History of Present Illness Details 57-year-old male who presents for concer n of UTI. Patient states that he was seen evaluated by his primary and diagnosed with UTIs put on ciprofloxacin. He is still experiencing significant pain and burning with urination in addition he experiencing testicular pain and heaviness. Denies any discharge rashes is sexually active with 1 partner and spent some time. 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 Son No problems noted. Son No problems noted. 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 No rashes or lesions. Results AMB Urinalysis, Automated UA Leukoctes 15 Ez/uL Last Edit by Robbin Varghese CMA on 07/10/23 08:43 UA Nitrite Last Edit by Robbin Varghese CMA on 07/10/23 08:43 UA Urobilinogen 0.2 mg/dL Last Edit by Robbin Varghese CMA on 07/10/23 08 :43 UA Protein 0 mg/dL Last Edit by Robbin Varghese CMA on 07/10/23 08:43 UA pH 6.0 Last Edit by Robbin Varghese CMA on 07/10/23 08:43 UA Blood 10 Ra/uL Last Edit by Robbin Varghese CMA on 07/10/23 08:43 UA Specific [place] 1.010 Last Edit by Robbin Varghese CMA on 07/10/23 08:43 UA Ketone Negative Last Edit by Robbin Varghese CMA on 07/10/23 08:43 UA Bilirubin 0 mg/dL Last Edit by Robbin Varghese CMA on 07/10/23 08:43 UA Glucose 0 mg/dL Last Edit by Robbin Varghese CMA on 07/10/23 08:43 Results Reviewed Results Reviewed: Laboratory Last Values Urine pH (Auto) 6.0 07/10/23 08:41 Specific [place] (Auto) 1.010 07/10/23 08:41 Urine Protein (Auto) 0 mg/dL 07/10/23 08:41 Glucose (UA)(Auto) 0 mg/dL 07/10/23 08:41 Urine Ketones (Auto) Negative 07/10/23 08:41 Urine Blood (Auto) 10 Ra/uL 07/10/23 08:41 Urine Bilirubin (Auto) 0 mg/dL 07/10/23 08:41 Urine Urobilinogen (Auto) 0.2 mg/dL 07/10/23 08:41 Leukocyte Esterase (Auto) 15 Ez/uL 07/10/23 08:41 Assessment & Plan Assessment & Plan (1) Testicular pain: Code(s): N50.819 - Testicular pain, unspecified Qualifiers: Laterality: unspecified laterality Qualified Code(s): N50.819 - Testicular pain, unspecified (2) Dysuria: Code(s): R30.0 - Dysuria Plan: VSS. Exam patient presents 1 oriented in no acute distress exam is notable for positive concern reflux no exquisite tenderness or patient's testicular region over the epididymal head. Urinalysis was performed and showed 15 lymphocytes is blood. No flank or CVA tenderness patient has a history of kidney stones back in the 90s but this does not feel like the case. Suspected UTI roxann with resistance to of patient regimen and. Will switch antibiotics as well as prescribe Pyridium for pain. Addition will order testicular ultrasound rule out epididymitis or testicular torsion. Scrotal ultrasound negative for epididymitis and torsion. Discharge instructions, follow up and treatment are discussed with patient in my usual fashion. Alternatives in treatment are also discussed. The patient will return for worsening symptoms or as needed. Advised that any labs/imaging ordered will be followed up on and contact made if further treatment needed. Counseled that patient's condition may require further evaluation and/or treatment. Symptoms of concern for worsening disorder discussed in detail in my customary manner. Patient does verbalize understanding of the plan, there are no apparent barriers to communication. The patient is given the opportunity to ask questions and have them answered to his/her satisfaction Orders: Orders AMB Urinalysis Automated Today Z13.9 - Encounter for screening, unspecified US scrotum doppler Today N50.819 - Testicular pain, unspecified Medications: New cefuroxime axetil 500 mg PO BID 20 tabs 0RF 10 days phenazopyridine (Pyridium) 100 mg PO TID PRN 6 tabs 0RF pain 6 doses Coding Level of Care Code Est Pt Level 4 (18132) Diagnoses Pain in testicle, unspecified laterality N50.819 Laterality: unspecified laterality Dysuria R30.0
[2023-07-10 08:18] VITALS: BP 130/80; PULSE 70; O2SAT 98
== END 2023-07-10 08:49 | disposition home or self-care (01) ==
PROVIDERS: PCP Internal Medicine; Visit Provider Physician Assistant
DX: N50.819 Testicular pain, unspecified (principal); R30.0 Dysuria
CPT/HCPCS: 81003; 99214

== ENCOUNTER 2023-07-10 10:56 | Outpatient (REF) | payer OTHER, SELFPAY ==
--- NOTE | ~2023-07-10 | US_ITS ---
EXAMINATION: US SCROTUM CLINICAL INFORMATION: Scrotal pain. COMPARISON: None available. TECHNIQUE: A sonogram of the scrotum was performed assessing rodgers-scale appearance and color Doppler flow. Spectral Doppler analysis of the arterial and venous flow were performed in the testes bilaterally. FINDINGS: RIGHT: Right testicle measures 4.2 x 2.7 x 2.6 cm, volume 15.4 mL. No focal testicular parenchymal lesions are visualized. Spectral Doppler analysis of the arterial and venous flow is normal in the right testis. Right epididymal head is normal in size. Right epididymal head cysts measures 7 x 6 x 6 mm and 6 x 5 x 6 mm. Small right hydrocele. Right epididymal Doppler flow is normal. LEFT: Left testicle measures 4.4 x 2.1 x 3.0 cm, volume 14.5 mL. No focal testicular parenchymal lesions are visualized. Spectral Doppler analysis of the arterial and venous flow is normal in the left testis. Left epididymal head is normal in size. Left epididymal head cyst 5 x 3 x 3 mm. No left hydrocele or varicocele is seen. Left epididymal Doppler flow is normal. US/US scrotum IMPRESSION: Bilateral epididymal cysts. Small right hydrocele.
--- NOTE | ~2023-07-10 | US_ITS ---
EXAMINATION: US SCROTUM CLINICAL INFORMATION: Testicular pain, unspecified. COMPARISON: None available. TECHNIQUE: A sonogram of the scrotum was performed assessing rodgers-scale appearance and color Doppler flow. Spectral Doppler analysis of the arterial and venous flow were performed in the testes bilaterally. FINDINGS: RIGHT: Right testicle measures 4.2 x 2.7 x 2.6 cm, volume 15.4 mL. No focal testicular parenchymal lesions are visualized. Spectral Doppler analysis of the arterial and venous flow is normal in the right testis. Right epididymal head is normal in size. 0.7 x 0.6 x 0.6 cm and 0.6 x 0.5 x 0.6 cm cysts are seen in the right epididymal tail. No right hydrocele or varicocele is seen. Right epididymal Doppler flow is normal. LEFT: Left testicle measures 4.4 x 2.1 x 3.0 cm, volume 14.5 mL. No focal testicular parenchymal lesions are visualized. Spectral Doppler analysis of the arterial and venous flow is normal in the left testis. Left epididymal head is normal in size. 0.5 x 0.2 x 0.3 cm cyst is seen in the left epididymal head. No left hydrocele or varicocele is seen. Left epididymal Doppler flow is normal. US/US scrotum doppler IMPRESSION: 1. Normal testicles. No evidence of torsion. 2. Bilateral epididymal cysts.
== END 2023-07-10 10:57 | disposition home or self-care (01) ==
LOC: HO.HMGCX 10:56
PROVIDERS: PCP Internal Medicine; Visit Provider Physician Assistant
DX: N50.819 Testicular pain, unspecified (principal)
CPT/HCPCS: 76870; 93975

== ENCOUNTER 2023-07-14 09:13 | Outpatient (AMB) | payer OTHER, SELFPAY ==
--- NOTE | 2023-07-14 09:18 | A.OFFPC_ITS ---
Vital Signs 07/14/23 09:24 Height 6 ft Weight 166 lb BMI 22.5 BP 128/78 Blood Pressure Location Rt brachial Position Sitting Pulse 71 Pulse Source Pulse Oximeter Pulse Oximetry (%) 98 Intake Visit Reasons: Testicular pain fu Intake Note: patient is here today for testicular pain F/U Allergies No Known Allergies [No Known Allergies*] Allergy (Verified 07/14/23 09:30) Medication List - Last Reconciled 07/14/23 by Karely Velásquez MD alcohol swabs (Alcohol Wipes) 1 pad topical TID blood sugar diagnostic (FreeStyle Lite Strips) Check blood sugar as directed twice a day before meals blood-glucose meter (FreeStyle Lite Meter kit) Check blood sugar as directed before meals twice a day cefuroxime axetil 500 mg PO BID 10 days cholecalciferol (vitamin D3) 50 mcg PO DAILY flash glucose scanning reader (Brys & EdgewoodStyle Roz 2 Phillips) As directed flash glucose sensor (FreeStyle Roz 2 Sensor kit) As directed every 2 weeks insulin glargine-yfgn (Semglee (insulin glargine-yfgn) Pen) 20 - 24 units (0.2 - 0.24 mL) subcut BEDTIME insulin lispro (Humalog KwikPen (U-100) Insulin) inject 3-15 units piedra bcutaneously 3 times a day; lancets (FreeStyle Lancets) Check blood sugar twice a day as directed before meals uuzbzb-tvbbiknl-ggxbaor 6,000-19,000 -30,000 unit (Creon) 11.79032 caps PO TID lisinopril 10 mg PO DAILY pen needle, diabetic (BD Ultra-Fine Kim Pen Needle) As directed four times a day phenazopyridine (Pyridium) 100 mg PO TID PRN 6 doses Tobacco use date assessed: 07/14/23 Dental Screening Dental Screen Date: 07/14/23 Did you have a dental visit in the last 12 months?: Yes Did you have a dental problem in the last 6 months where you did not have access to dental care?: No Was dental information given to patient?: Patient has dentist HPI Testicular pain fu HPI Details 57-year-old male with diabetes mellitus, history of pancreatic duct calculus, hypertension, here today still complaining of pain in both testicular area, accompanied by urinary urgency, and dysuria. He was seen initially here 07/03/2023 and treated for urinary tract infection with ciprofloxacin. No impr ovement of symptoms noted on antibiotic, he he then went to the walk-in and was treated also for a possible urinary tract infection, urine dipstick however only showed presence of micro hematuria. Was placed on cefuroxime and phenazopyridine which has not afforded any relief. Gonorrhea and chlamydia screening came back negative. Testicular ultrasound done showed presence only of bilateral epididymal cyst, normal scrotum. 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 Son No problems noted. Son No problems noted. 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 How often do you have a drink containing alcohol?: Never 3. How often do you have six or more drinks on one occasion?: Never Total Score: 0 CHELSEA-7 AMB Questionnaire CHELSEA-7 Date CHELSEA - 7 assessed: 10/24/21 Feeling nervous, anxious, or on edge: 2 = More than half the days Not being able to stop or control worryin = More than half the days Worrying too much about different things: 2 = More than half the days Trouble relaxin = Nearly every day Being so restless that it is hard to sit still: 3 = Nearly every day Becoming easily annoyed or irritable: 2 = More than half the days Feeling afraid as if something awful might happen: 0 = Not at all Total CHELSEA-7 score (0-4 normal; 5-9 mild; 10-14 moderate; 15-21 severe): 14 Source: Developed by Drs. Samy Rubio, Fallon Connell, Thang Davis and colleagues, with an educational freya from [employer]. CHELSEA-7 Assessment Billing CHELSEA-7 Assessment Tool: CHELSEA-7 Assessment 89817 Review of Systems Const Denies fatigue, Denies fever(s), Denies headache(s) and Denies weakness Eyes Details: goes to eye and [facility] with eye exam , per pt Denies change in vision ENT Denies dizziness, Denies headache(s), Denies nasal congestion, Denies nasal discharge and Denies sore throat Card Denies chest pain, Denies lightheadedness, Denies palpitations and Denies dyspnea Resp Denies chest congestion, Denies cough, Denies dyspnea and Denies wheezing GI Denies abdominal pain, Denies change in bowel habits and Denies heartburn Reports as per HPI Musc Reports no additional complaints Skin/Breast Denies lesions and Denies rash Neuro Denies dizziness, Denies headache(s) and Denies weakness Psych Reports as per HPI Endo Denies fatigue, Denies polydipsia and Denies palpitations Duncan/Lymph Denies easy bruising Aller/Immun Denies seasonal rhinorrhea and Denies wheezing Physical exam (Primary Care) Vital Signs: Last Vital Signs Pulse 71 07/14/23 09:24 BP 128/78 07/14/23 09:24 Pulse Ox 98 07/14/23 09:24 BMI result Body Mass Index 22.5 Tobacco/Smoking Status: Tobacco use Status Tobacco use date assessed 07/14/23 07/14/23 09:22 Patient Tobacco Use Status Former Tobacco user 07/14/23 09:20 Tobacco use type Cigarette 07/14/23 09:20 e-Cigarette/Vaping Use Currently Using 07/14/23 09:20 Thrive Assessment: Date of Thrive Assessment Date Thrive assessed 07/03/23 07/14/23 09:20 Const General: no acute distress Orientation/consciousness: patient oriented x3 Limitations: no limitations HENMT Mouth: tongue normal and oropharynx normal Neck Neck: Yes full ROM, Yes no lymphadenopathy and Yes supple Resp Effort & Inspection: normal respiratory effort and able to speak in complete sentences Auscultation: clear to auscultation bilaterally Cardio Other: S1-S2 present regular rate and rhythm GI Inspection: Yes normal to inspection Palpation (GI): Soft to palpation, nontender, no guarding and no masses General: Yes no CVA tenderness Male General Exam: Yes normal external exam Penis: normal penis Scrotum: not edematous, testes descended bilaterally, no hydroceles, no masses and no scrotal swelling Testes: no testicular swelling and no testicular tenderness Back/Spine/Pelvis Back: no CVA tenderness and No back tenderness Skin General skin exam: no rashes or lesions noted and no jaundice Neuro General: patient oriented x3, gait normal, moves all extremities, Normal light touch and pain sensation, no focal motor deficits and CN's II-XI intact b ilaterally Extrem General: Yes full ROM, Yes no joint enlargement, Yes no pedal edema and Yes normal gait Assessment and Plan Assessment & Plan (1) Testicular pain: Code(s): N50.819 - Testicular pain, unspecified Qualifiers: Laterality: unspecified laterality Qualified Code(s): N50.819 - Testicular pain, unspecified Plan: Stat urology consult ordered for further evaluation management, patient already has completed 2 rounds of antibiotics which has not afforded any relief, urinary antiseptic also was given no improvement. For gonorrhea chlamydia, urinalysis on last visit was unremarkable except for presence of 10 RBC per HPF. (2) Dysuria: Code(s): R30.0 - Dysuria Plan: Stat urology consult ordered for further evaluation management, patient already has completed 2 rounds of antibiotics which has not afforded any relief, urinary antiseptic also was given no improvement. For gonorrhea chlamydia, urinalysis on last visit was unremarkable except for presence of 10 RBC per HPF. Orders: Referrals Urology Referral N50.819 - Testicular pain, unspecified, R30.0 - Dysuria Coding Level of Care Code Est Pt Level 3 (73377) Diagnoses Pain in testicle, unspecified laterality N50.819 Laterality: unspecified laterality Dysuria R30.0 Additional Codes CHELSEA-7 Assessment Billing - CHELSEA-7 Assessment Tool: CHELSEA-7 Assessment 73034 ([id number])
[2023-07-14 09:24] VITALS: BP 128/78; PULSE 71; O2SAT 98; BMI 22.5
== END 2023-07-14 11:31 | disposition home or self-care (01) ==
PROVIDERS: PCP Internal Medicine; Visit Provider Internal Medicine
DX: N50.819 Testicular pain, unspecified (principal); R30.0 Dysuria
CPT/HCPCS: 99213

== ENCOUNTER 2023-07-16 14:51 | Outpatient (AMB) | payer OTHER, SELFPAY ==
--- NOTE | 2023-07-16 15:20 | MHC.OFFVIS ---
Intake Intake Visit Reasons: Bi epididymal cysts Allergies No Known Allergies [No Known Allergies*] Allergy (Verified 07/14/23 09:30) HPI HPI Comments History of Present Illness Details Ishmael is a 57-year-old male who presents today to the office to establish as a new patient for an evaluation of? 07/16/2023? He presents today for an evaluation of Evaluation today?UA? 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 Son No problems noted. Son No problems noted. 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 All questions were answered. Imaging, Laboratory studies and physical exam results were discussed and reviewed in detail. No major barriers to understanding were identified. The patient expressed understanding and agreement with the above treatment plan.? ? ? The patient is aware they should contact our office by phone for worsening of their current condition or the appearance of new symptoms. Compliance is encouraged with any medications and followup testing that is ordered.? ? ? It is a privilege to be allowed the opportunity to participate in the urologic care of your patient. If you have any questions or concerns regarding treatment for the above conditions please do not hesitate to contact me. The office telephone contact is [phone].? ? ? This note is constructed in part using voice recognition software. While every effort has been made to ensure accuracy motor installer errors may have been included.? ? ? Yours sincerely,? ? ? Darnell Heck MD? Coding
--- NOTE | 2023-07-16 15:21 | MHC.OFFVIS ---
Intake Intake Visit Reasons: Bi epididymal cysts Intake Note: NEW Patient presents today to established treatment for Bi Epidydimal Cysts: Meds- Pyridium Allergies to Antibiotic- No Known Allergies Blood Thinner- None PVR- 0 mL Allergies No Known Allergies [No Known Allergies*] Allergy (Verified 07/14/23 09:30) Medication List - Last Reconciled 07/16/23 by Darnell Heck MD alcohol swabs (Alcohol Wipes) 1 pad topical TID blood sugar diagnostic (FreeStyle Lite Strips) Check blood sugar as directed twice a day before meals blood-glucose meter (FreeStyle Lite Meter kit) Check blood sugar as directed before meals twice a day cefuroxime axetil 500 mg PO BID 10 days cholecalciferol (vitamin D3) 50 mcg PO DAILY flash glucose scanning reader (FreeStyle Roz 2 Shanks) As directed flash glucose sensor (FreeStyle Roz 2 Sensor kit) As directed every 2 weeks insulin glargine-yfgn (Semglee (insulin glargine-yfgn) Pen) 20 - 24 units (0.2 - 0.24 mL) subcut BEDTIME insulin lispro (Humalog KwikPen (U-100) Insulin) inject 3-15 units subcutaneously 3 times a day; lancets (FreeStyle Lancets) Check blood sugar twice a day as directed before meals surtba-gjzookuo-divcaww 6,000-19,000 -30,000 unit (Creon) 11.23007 caps PO TID lisinopril 10 mg PO DAILY pen needle, diabetic (BD Ultra-Fine Kim Pen Needle) As directed four times a day phenazopyridine (Pyridium) 100 mg PO TID PRN 6 doses tamsulosin (Flomax) 0.4 mg PO BEDTIME HPI HPI Comments History of Present Illness Details Ishmael is a 57-year-old male who presents today to the office to establish as a new patient for an evaluation of bilateral epididymal cyst. 07/16/2023? He presents today for an evaluation of bilateral epididymal cyst. He has seen his PCP for urinary symptoms of dysuria and testicular pain. He was treated with antibiotics. Patient has had scrotal US done on 07/10/2023. I reviewed the scrotum US results from 07/10/2023 revealed bilateral epididymal cysts. Small right hydrocele. He states that his urinary flow has improved; however he still has some burning with urination.? He states that he drinks 15 cups of coffee a day. I have discussed lifestyle changes, behaviourial modification, significantly cut back on caffeine intake Evaluation today?UA?leukocytes: negative; blood: negative; bladder scan PVR: 0 mL. Plan: Flomax 0.4 mg was ordered. Decrease coffee intake. Continue antibiotics for another 5 days. Follow-up in 8 weeks. 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 Son No problems noted. Son No problems noted. 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 Current occupational exposures/hazards: No Cognitive needs: No Hearing needs: No Vision needs: No Questionnaire AUA Symptom Score AUA Incomplete emptying - It does not feel like I empty my bladder all the way.: 0 - Not at all Frequency - I have to go again less than two hours after I finish urinating.: 5 - Almost always Intermittency - I stop and start again several times when I urinate.: 3 - About half the time Urgency - It is hard to wait when I have to urinate.: 5 - Almost always Weak stream - I have a weak urinary stream.: 4 - More than half the time Straining - I have to push or strain to begin urination.: 4 - More than half the time Nocturia - I get up to urinate after I go to bed until the time I get up in the morning.: 4 times AUA Symptom Score: 25 Quality of life due to urinary symptoms: If you were to spend the rest of your life with your urinary condition the way it is now, how would you feel about that?: Terrible Source: Lionel BERGMAN, Osiel CATALAN Jr, O'Ada MP, et al, and the Measurement Committee of the [place] [employer]. The [place] [employer] symptom index for benign prostatic hyperplasia. J Urol. 1992; 148: 1384-2145. Copyright 1992 [place] [employer] Review of Systems Const All systems reviewed & are unremarkable except as noted in HPI and below Reports no additional complaints Eyes Reports no additional complaints ENT Reports no additional complaints Card Denies dyspnea Resp Denies cough and Denies dyspnea GI Reports no additional complaints Musc Reports no additional complaints Skin/Breast Denies rash and Denies unusual bruising Neuro Reports no additional complaints Psych Reports no additional complaints Endo Reports no additional complaints Duncan/Lymph Reports no additional complaints Aller/Immun Reports no additional complaints Physical Exam Const General: healthy appearing, no acute distress and well developed Orientation/consciousness: patient oriented x3 HEENT Head: Yes normocephalic and Yes atraumatic Eyes Conjunctivae: conjunctivae normal Neck Neck: Yes normal visual inspection Chest Chest palpation & inspection: normal inspection of the chest Resp Effort & Inspection: normal respiratory effort Cardio Rate: regular rate GI Inspection: Yes normal to inspection Palpation (GI): Soft to palpation Scrotum: scrotum normal Skin General skin exam: no rashes or lesions noted Neuro General: patient oriented x3 Extrem General: No pedal edema Psych Appearance: grossly normal Affect: normal affect Office Procedures Post Void Residual Post Residual Void Post Void Residual (PVR): 0 [id number] Void Residual by ultrasound Results AMB Urinalysis, Automated UA Leukoctes 0 Ez/uL Last Edit by ASHA Lara on 07/16/23 15:42 UA Nitrite Negative Last Edit by ASHA Lara on 07/16/23 15:42 UA Urobilinogen 0.2 mg/dL Last Edit by ASHA Lara on 07/16/23 15:42 UA Protein 0 mg/dL Last Edit by MOSES LaraA on 07/16/23 15:42 UA pH 6.0 Last Edit by Milagros Loya, A on 07/16/23 15:42 UA Blood 0 Ra/uL Last Edit by Milagros Loya A on 07/16/23 15:42 UA Specific [place] 1.005 Last Edit by Milagros Loya A on 07/16/23 15:42 UA Ketone Last Edit by Milagros Loya A on 07/16/23 15:42 UA Bilirubin 0 mg/dL Last Edit by Milagros Loya A on 07/16/23 15:42 UA Glucose 0 mg/dL Last Edit by Milagros Loya Diamante on 07/16/23 15:42 Results Reviewed Results Reviewed: Laboratory Last Values Urine pH (Auto) 6.0 07/16/23 15:41 Specific [place] (Auto) 1.005 07/16/23 15:41 Urine Protein (Auto) 0 mg/dL 07/16/23 15:41 Glucose (UA)(Auto) 0 mg/dL 07/16/23 15:41 Urine Blood (Auto) 0 Ra/uL 07/16/23 15:41 Urine Nitrite (Auto) Negative 07/16/23 15:41 Urine Bilirubin (Auto) 0 mg/dL 07/16/23 15:41 Urine Urobilinogen (Auto) 0.2 mg/dL 07/16/23 15:41 Leukocyte Esterase (Auto) 0 Ez/uL 07/16/23 15:41 Date of Service: 07/10/23 EXAMINATION: US SCROTUM CLINICAL INFORMATION: Scrotal pain. COMPARISON: None available. FINDINGS: RIGHT: Right testicle measures 4.2 x 2.7 x 2.6 cm, volume 15.4 mL. No focal testicular parenchymal lesions are visualized. Spectral Doppler analysis of the arterial and venous flow is normal in the right testis. Right epididymal head is normal in size. Right epididymal head cysts measures 7 x 6 x 6 mm and 6 x 5 x 6 mm. Small right hydrocele. Right epididymal Doppler flow is normal. LEFT: Left testicle measures 4.4 x 2.1 x 3.0 cm, volume 14.5 mL. No focal testicular parenchymal lesions are visualized. Spectral Doppler analysis of the arterial and venous flow is normal in the left testis. Left epididymal head is normal in size. Left epididymal head cyst 5 x 3 x 3 mm. No left hydrocele or varicocele is seen. Left epididymal Doppler flow is normal. IMPRESSION: Bilateral epididymal cysts. Small right hydrocele. Assessment & Plan Assessment & Plan (1) Dysuria: Code(s): R30.0 - Dysuria (2) Testicular pain: Code(s): N50.819 - Testicular pain, unspecified Qualifiers: Laterality: unspecified laterality Qualified Code(s): N50.819 - Testicular pain, unspecified (3) Benign prostatic hyperplasia: Code(s): N40.0 - Benign prostatic hyperplasia without lower urinary tract symptoms Plan Flomax 0.4 mg was ordered. Decrease coffee intake. Continue antibiotics for another 5 days. Follow-up in 8 weeks. Orders: Orders AMB Post Void Residual by ultrasound 07/16/23 N39.8 - Other specified disorders of urinary system AMB Urinalysis Automated 07/16/23 Z13.9 - Encounter for screening, unspecified Medications: New tamsulosin (Flomax) 0.4 mg PO BEDTIME 21 caps 0RF Refilled cefuroxime axetil 500 mg PO BID 10 days 20 tabs 0RF Patient Instructions: The patient had an opportunity to ask questions regarding treatment plan. All questions were answered. Imaging, Laboratory studies and physical exam results were discussed and reviewed in detail. No major barriers to understanding were identified. The patient expressed understanding and agreement with the above treatment plan.? ? ? The patient is aware they should contact our office by phone for worsening of their current condition or the appearance of new symptoms. Compliance is encouraged with any medications and followup testing that is ordered.? ? ? It is a privilege to be allowed the opportunity to participate in the urologic care of your patient. If you have any questions or concerns regarding treatment for the above conditions please do not hesitate to contact me. The office telephone contact is [phone].? ? ? This note is constructed in part using voice recognition software. While every effort has been made to ensure accuracy debrander errors may have been included.? ? ? Yours sincerely,? ? ? Darnell Heck MD? ? ? Quality Reporting (2019) Benign Prostatic Hyperplasia ([facility] 771) AUA symptom score: 25 Quality of life due to urinary symptoms: If you were to spend the rest of your life with your urinary condition the way it is now, how would you feel about that?: Terrible Coding Level of Care Code New Pt Level 4 (46407) Diagnoses Dysuria R30.0 Pain in testicle, unspecified laterality N50.819 Laterality: unspecified laterality Benign prostatic hyperplasia N40.0 CPT Codes Post Residual Void - PVR CPT Code: 86036-[id number] Void Residual by ultrasound ([id number])
== END 2023-07-16 16:10 | disposition home or self-care (01) ==
PROVIDERS: PCP Internal Medicine; Visit Provider Urology
DX: R30.0 Dysuria (principal); N50.819 Testicular pain, unspecified; N40.0 Benign prostatic hyperplasia without lower urinary tract symptoms
CPT/HCPCS: 99204

== ENCOUNTER → 2023-07-16 14:51 | Outpatient (BNVA) | payer OTHER, SELFPAY | PROVIDERS: PCP Internal Medicine; Visit Provider Urology | DX: N50.3 Cyst of epididymis (principal); N40.0 Benign prostatic hyperplasia without lower urinary tract symptoms; N43.3 Hydrocele, unspecified; R30.0 Dysuria; N50.819 Testicular pain, unspecified; E08.65 Diabetes mellitus due to underlying condition with hyperglycemia; K86.1 Other chronic pancreatitis; K86.89 Other specified diseases of pancreas; U07.0 Vaping-related disorder; Z87.891 Personal history of nicotine dependence; Z79.4 Long term (current) use of insulin | CPT/HCPCS: 51798; 81003 ==

== ENCOUNTER 2023-08-01 08:07 | Outpatient (REF) | payer OTHER, SELFPAY ==
--- NOTE | ~2023-08-01 | CT_ITS ---
EXAMINATION: CT CHEST SCREENING CLINICAL INFORMATION: 120 pack year history in current smoker COMPARISON: 11/26/2021 and 05/26/2020 TECHNIQUE: Multidetector volumetric CT imaging of the chest is performed without contrast using low dose technique. Additional 2D coronal and sagittal reformatted images and axial 3D maximum intensity projection (MIP) images are generated on the CT workstation. This CT examination was performed using dose optimization techniques as appropriate, variously including the following: *Automated exposure control *Adjustment of mA and/or kV according to patient size (this includes techniques or standardized protocols for targeted exams where dose is matched to indication/reason for exam; i.e. extremities or head) *Use of iterative reconstruction technique DLP: 40 mGy-cm FINDINGS: CUSTOMER RELATIONS CONSULTANT: Lower cervical surgical stabilizing hardware. Flattening of the hemidiaphragms. LUNGS: Trachea and bronchi are patent. Hyperinflation with centrilobular emphysema. Scattered atelectasis, most prominent in the right middle lobe. Stable 2 mm right upper lobe nodule, 6:169, 4 mm right lower lobe nodule, 6:271. No new or enlarging pulmonary nodules. MEDIASTINUM: Unremarkable thyroid. No pathologic lymphadenopathy. Nonenlarged heart. No pericardial effusion. Nonaneurysmal aorta with atherosclerotic calcifications. Nonenlarged pulmonary arteries. CORONARY ARTERY CALCIFICATION: Mild to moderate PLEURA: There is no pleural effusion. No pleural mass or thickening. AXILLA: None pathologically enlarged calcified lymph nodes. Does patient have upper extremity tattoos? UPPER ABDOMEN: Unchanged atrophic pancreas with diffuse ductal dilatation and multiple calcifications. OSSEOUS STRUCTURES: Lower cervical stabilizing surgical hardware. Multilevel compressions with progression superior endplate deformity of T7. Benign-appearing sclerotic density T11 is stable. CT/CT lung screening IMPRESSION: Stable lung nodules, none larger than 4 mm. Centrilobular emphysema. Chronic pancreatitis. Increasing T7 superior endplate compression deformity. ASSESSMENT: Lung-RADS category 2: Benign RECOMMENDATION: Routine annual low-dose CT screening in 12 months.
== END 2023-08-01 08:08 | disposition home or self-care (01) ==
LOC: HO.CT 08:07
PROVIDERS: PCP Internal Medicine; Visit Provider Physician Assistant Medical
DX: Z12.2 Encounter for screening for malignant neoplasm of respiratory organs (principal); Z87.891 Personal history of nicotine dependence
CPT/HCPCS: 71271

== ENCOUNTER 2023-08-20 13:17 | Outpatient (AMB) | payer OTHER, SELFPAY ==
--- NOTE | 2023-08-20 13:20 | A.OFFVIS_ITS ---
Intake Vital Signs 08/20/23 13:25 Height 6 ft Weight 171 lb 15.369 oz BMI 23.3 BP 129/74 Blood Pressure Location Rt brachial Position Sitting Pulse 62 Intake Visit Reasons: Pancreatitis Intake Note: Patient presents to in office visit today as a new patient for pancreatitits. CC: Patient states he used to go to [facility] [place] but his GI doctor left and he is here to establish care. Parts Expediter Required: No Allergies No Known Allergies [No Known Allergies*] Allergy (Verified 08/20/23 13:28) Medication List - Last Reconciled 08/20/23 by Jenny Dukes PA-C alcohol swabs (Alcohol Wipes) 1 pad topical TID blood sugar diagnostic (FreeStyle Lite Strips) Check blood sugar as directed twice a day before meals blood-glucose meter (FreeStyle Lite Meter kit) Check blood sugar as directed before meals twice a day cholecalciferol (vitamin D3) 50 mcg PO DAILY flash glucose scanning reader ([employer] Roz 2 Robinson) As directed flash glucose sensor (FreeStyle Roz 2 Sensor kit) As directed every 2 weeks insulin glargine-yfgn (Semglee (insulin glargine-yfgn) Pen) 20 - 24 units (0.2 - 0.24 mL) subcut BEDTIME insulin lispro (Humalog KwikPen (U-100) Insulin) inject 3-15 units subcutaneously 3 times a day; lancets (FreeStyle Lancets) Check blood sugar twice a day as directed before meals vbazhr-revuzujk-zpelzlm 6,000-19,000 -30,000 unit (Creon) 11.10522 caps PO TID lisinopril 10 mg PO DAILY pen needle, diabetic (BD Ultra-Fine Kim Pen Needle) As directed four times a day HPI HPI Comments History of Present Illness Details A 57 y/o male last seen 02/2021- chronic pancreatitis-no etoh x 15year-- was evaluated by Dr. Hunter referred to [facility] [place]- Has been following there since that time- Geoffrey Hall- who has now left the practice- need to reestablish with VALDO Wynne- doing well- Reviewed his course of treatment over the past couple of years he has done very well he is happy to come back and see Dr. Hunter, to be cover locally Works [employer]- He has no GI or general complaints- He is uptodate-with colonoscopy He has a good appetite, bowels are normal. 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 Son No problems noted. Son No problems noted. 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 Current occupational exposures/hazards: No Cognitive needs: No Hearing needs: No Vision needs: No Review of Systems Const Details: All systems reviewed and are negative All systems reviewed & are unremarkable except as noted in HPI and below Card Denies chest pain GI Denies abdominal pain, Denies hematochezia, Denies change in bowel habits, Denies constipation, Denies heartburn and Denies nausea Physical Exam Vital Signs: Last Vital Signs Pulse 62 08/20/23 13:25 BP 129/74 08/20/23 13:25 BMI result Body Mass Index 23.3 Const General: cooperative, healthy appearing, comfortable and no acute distress Orientation/consciousness: patient oriented x3 Limitations: no limitations Eyes Sclerae: sclerae normal Resp Effort & Inspection: normal respiratory effort and able to speak in complete sentences Auscultation: clear to auscultation bilaterally, no rales, no rhonchi and no wheezes Cardio Rate: regular rate Rhythm: regular rhythm Heart sounds: S1 normal heart sound present and S2 normal heart sound present GI Palpation (GI): Soft to palpation and nontender Auscultation: normal bowel sounds Skin General skin exam: no rashes or lesions noted Neuro General: patient oriented x3 Extrem General: Yes full ROM Psych Appearance: grossly normal and well kempt Mental Status: mental status grossly normal Speech and movement: Normal speech and movement present and Clear speech present Affect: normal affect Attitude: cooperative Thought process: Normal thought process present Thought content: Normal thought content present Insight: Good insight present (Psych) Judgement: Good judgement present (Psych) Assessment & Plan Assessment & Plan (1) Chronic pancreatitis: Comment: Very pleasant 57-year-old Gent seen by us initially in referred to [id number] has been followed there since time left practice- need follow for chronic panc- doing well with creon No issues- Code(s): K86.1 - Other chronic pancreatitis Plan Reviewed with Dr. Hunter Patient Instructions: Get records from [facility] [place]- With scheduled to be seen in the office with Dr. Hunter 30 minutes visit Patient agreeable with the plan Encouraged to call questions or concerns Coding Level of Care Code Est Pt Level 4 (57582) Diagnoses Chronic pancreatitis K86.1 Time Spent (min) 35
[2023-08-20 13:25] VITALS: BP 129/74; PULSE 62; BMI 23.3
== END 2023-08-20 14:01 | disposition home or self-care (01) ==
PROVIDERS: PCP Internal Medicine; Visit Provider Physician Assistant
DX: K86.1 Other chronic pancreatitis (principal)
CPT/HCPCS: 99214

== ENCOUNTER → 2023-08-20 13:17 | Outpatient (BNVA) | payer OTHER, SELFPAY | PROVIDERS: PCP Internal Medicine; Visit Provider Physician Assistant | DX: K86.1 Other chronic pancreatitis (principal) | CPT/HCPCS: 99212 ==

== ENCOUNTER 2023-08-28 07:49 | Outpatient (AMB) | payer OTHER, SELFPAY ==
--- NOTE | 2023-08-28 07:58 | A.OFFVIS_ITS ---
Intake Vital Signs 08/28/23 07:59 Height 6 ft Weight 173 lb 4.533 oz BMI 23.5 BP 134/78 Blood Pressure Location Lt brachial Pulse 55 Pulse Source Pulse Oximeter Intake Visit Reasons: f/u pancreolytic diabetes-CONFIRMED Intake Note: Patient presents today to follow up on pancreatic diabetes. Last Diabetic Eye exam: 06/2023 Last Podiatry Visit:None Random Glucose: 104 mg/dl HgA1C: 7.3% 07/03/23 Backend Java Developer Required: No Accompanied by: Self / Same As Patient Allergies No Known Allergies [No Known Allergies*] Allergy (Verified 08/28/23 08:07) HPI HPI Comments History of Present Illness Details Patient is a 57 year old male with DM diagnosed September 2020 who presents for management of diabetes. . He did have a low C-peptide 2019. He has a very low carb to no carb diet. 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 Continuous glucose monitoring: In the last 14 days C GM is active 76% an average blood glucose of 161. GM I 7.2%. Glucose variability 34.1 . , . Blood glucose in target range of 70-180, 67%. Glucose high from 181-250, 26%. Glucose very high over 250, 7%. there is 3% hypoglycemia. Pattern shows steady glucose is with slight increase after dinner Symptoms reported: denies numbness, tingling, in toes Hypoglycemia: once ever 1-2 weeks, states hardly feels anything. Treats with skittles or monitors and makes sure that bg increasing. 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 Eye exam: 2 mos ago - ou no retinopathy Laboratory Tests 08/17/21 08/17/21 08/17/21 11:32 11:32 11:32 Creatinine Estimated GFR Hemoglobin A1c % 7.8 Triglycerides 53 Cholesterol 139 LDL Cholesterol, C alc 83 HDL Cholesterol 46 25-OH Vitamin D To mirta 29.0 Microalb/Creat Rat io TNP 11/06/21 09:16 Creatinine 1.19 Estimated GFR > 60 Hemoglobin A1c % Triglycerides Cholesterol LDL Cholesterol, C alc HDL Cholesterol 25-OH Vitamin D To mirta Microalb/Creat Rat io [facility] Medical History COVID-19 vaccination declined Anxiety and depression Numbness and tingling Tongue burning sensation Pancreatolithiasis History of alcohol abuse Annual visit for general adult medical examination with abnormal findings 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 Son No problems noted. Son No problems noted. 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 Absence of acromegalic features. Neck exam reveals nl size thyroid about 15 gms. No thyroid nodules palpable. No carotid bruits present. Lungs CTA. Heart S1 S2, Reg R/R. No M/R/ G. Skin exam reveals absence of vitiligo or acanthosis nigricans. Abdominal exam reveals Soft NT/ND with NA BS. No organomegaly present. Neck Other: . Extrem Other: Visual exam of foot performed. No ulcerations or open lesions. No onchomycosis, no callouses.Pulses 2 + distally Sensation intact to monofilament exam. 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 Glycemia is optimized with insulin injections as increasing insulin before dinner resulted in past in hypoglycemia . Patient will follow up with educator senior clinical. He would be a good candidate for insulin pump initiation either Omnipod 5 or tandem in conjunction with Dexcom. . However, co-pay for the both devices are too much for the patient and right now he is opting not to switch from injections. 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
[2023-08-28 07:59] VITALS: BP 134/78; PULSE 55; BMI 23.5
[2023-08-28 08:47] LABS: Glucose, Whole Blood 104 mg/dL (60-115)
== END 2023-08-28 08:32 | disposition home or self-care (01) ==
PROVIDERS: PCP Internal Medicine; Visit Provider Internal Medicine Endocrinology, Diabetes & Metabolism
DX: E13.9 Other specified diabetes mellitus without complications (principal); S36.209S Unspecified injury of unspecified part of pancreas, sequela
CPT/HCPCS: 99214

== ENCOUNTER → 2023-08-28 07:49 | Outpatient (BNVA) | payer OTHER, SELFPAY | PROVIDERS: PCP Internal Medicine; Visit Provider Internal Medicine Endocrinology, Diabetes & Metabolism | DX: E13.9 Other specified diabetes mellitus without complications (principal); S36.209S Unspecified injury of unspecified part of pancreas, sequela | CPT/HCPCS: 82947; 99212 ==

== ENCOUNTER 2023-08-28 08:36 | Outpatient (REF) | payer OTHER, SELFPAY ==
[2023-08-28 10:49] LABS: Cholesterol 140 mg/dL (<200); HDL Cholesterol 41 mg/dL (>40); LDL Cholesterol Calculated 87 mg/dL (<100); Triglycerides 61 mg/dL (<150)
== END 2023-08-28 08:37 | disposition home or self-care (01) ==
LOC: HO.10HDL 08:36
PROVIDERS: Visit Provider Internal Medicine Endocrinology, Diabetes & Metabolism
DX: E13.9 Other specified diabetes mellitus without complications (principal); S36.209S Unspecified injury of unspecified part of pancreas, sequela
CPT/HCPCS: 36415; 80061

== ENCOUNTER 2023-09-22 15:33 | Outpatient (AMB) | payer OTHER, SELFPAY ==
--- NOTE | 2023-09-22 15:34 | A.OFFVIS_ITS ---
Intake Intake Visit Reasons: 8w follow up Intake Note: Patient presents today to for a follow-up on Bi Epidydimal Cysts: Meds- Pyridium Allergies to Antibiotic- No Known Allergies Blood Thinner- None Allergies No Known Allergies [No Known Allergies*] Allergy (Verified 08/28/23 08:07) HPI HPI Comments History of Present Illness Details 09/22/23--- Ishmael is a 57-year-old male who is here for FU evaluation for BPH, testicular pain and LUTS of dysuria Past Medical history insulin dependent Diabetes secondary to pancreatitis, chronic pancreatitis, Neuralgia post Herpes, Surgical history includes but is not limited to cervical fracture repair, 2000 Last seen for initial evaluation 07/16/23 - states LUTS improved and testicular pain resolved. Completed tamsulosin and did not have a refill. history of nicotine use >41 years and current cigarette use. I have discussed avoiding dietary bladder irritants, including to cut back on caffeine usage. (previously stated drinks 15 cups of coffee a day). Evaluation today?UA?leukocytes: negative; blood: negative; Review of chart: Imaging/Labs/Results- Scrotum US results from 07/10/2023 revealed bilateral epididymal cysts. Small right hydrocele. Plan: Resume Flomax 0.4 mg Decrease coffee intake. 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 Son No problems noted. Son No problems noted. 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 Current occupational exposures/hazards: No Cognitive needs: No Hearing needs: No Vision needs: No Review of Systems Const All systems reviewed & are unremarkable except as noted in HPI and below Reports no additional complaints Eyes Reports no additional complaints ENT Reports no additional complaints Card Denies dyspnea Resp Denies cough and Denies dyspnea GI Reports no additional complaints Musc Reports no additional complaints Skin/Breast Denies rash and Denies unusual bruising Neuro Reports no additional complaints Psych Reports no additional complaints Endo Reports no additional complaints Duncan/Lymph Reports no additional complaints Aller/Immun Reports no additional complaints Results AMB Urinalysis, Automated UA Leukoctes 0 Ez/uL Last Edit by ASHA Lara on 09/22/23 16:00 UA Nitrite Negative Last Edit by ASHA Lara on 09/22/23 16:00 UA Urobilinogen 0.2 mg/dL Last Edit by ASHA Lara on 09/22/23 16:0 0 UA Protein 0 mg/dL Last Edit by ASHA Lara on 09/22/23 16:00 UA pH 6.0 Last Edit by ASHA Lara on 09/22/23 16:00 UA Blood 0 Ra/uL Last Edit by ASHA Lara on 09/22/23 16:00 UA Specific [place] 1.015 Last Edit by ASHA Lara on 09/22/23 16: 00 UA Ketone Negative Last Edit by ASHA Lara on 09/22/23 16:00 UA Bilirubin 0 mg/dL Last Edit by Milagros Mendezjadon ASHA on 09/22/23 16:00 UA Glucose 0 mg/dL Last Edit by Jadonjeny Loya ASHA on 09/22/23 16:00 Assessment & Plan Assessment & Plan (1) Benign prostatic hyperplasia: Code(s): N40.0 - Benign prostatic hyperplasia without lower urinary tract symptoms (2) Urinary frequency: Code(s): R35.0 - Frequency of micturition (3) Nicotine dependence: Code(s): F17.200 - Nicotine dependence, unspecified, uncomplicated (4) Screening PSA (prostate specific antigen): Code(s): Z12.5 - Encounter for screening for malignant neoplasm of prostate Plan Resume Flomax 0.4 mg Decrease coffee intake. Follow-up in 6 months, PSA prior Orders: Orders AMB Urinalysis Automated Today Z13.9 - Encounter for screening, unspecified Medications: New tamsulosin (Flomax) 0.4 mg PO BEDTIME 90 caps 3RF Patient Instructions: The patient had an opportunity to ask questions regarding treatment plan. All questions were answered. Imaging, Laboratory studies and physical exam results were discussed and reviewed in detail. No major barriers to understanding were identified. The patient expressed understanding and agreement with the above treatment plan. The patient is aware they should contact our office by phone for worsening of their current condition or the appearance of new symptoms. Compliance is encouraged with any medications and followup testing that is ordered. It is a privilege to be allowed the opportunity to participate in the urologic care of your patient. If you have any questions or concerns regarding treatment for the above conditions please do not hesitate to contact me. The office telephone contact is [phone]. This note is constructed in part using voice recognition software. While every effort has been made to ensure accuracy algorithm design engineer errors may have been included. Yours sincerely, Darnell Heck MD Coding Level of Care Code Est Pt Level 4 (39287) Diagnoses Benign prostatic hyperplasia N40.0 Urinary frequency R35.0 Nicotine dependence F17.200 Screening PSA (prostate specific antigen) Z12.5
== END 2023-09-22 16:03 | disposition home or self-care (01) ==
PROVIDERS: PCP Internal Medicine; Visit Provider Urology
DX: N40.0 Benign prostatic hyperplasia without lower urinary tract symptoms (principal); R35.0 Frequency of micturition; F17.200 Nicotine dependence, unspecified, uncomplicated; Z12.5 Encounter for screening for malignant neoplasm of prostate; Z13.9 Encounter for screening, unspecified
CPT/HCPCS: 99214

== ENCOUNTER → 2023-09-22 15:33 | Outpatient (BNVA) | payer OTHER, SELFPAY | PROVIDERS: PCP Internal Medicine; Visit Provider Urology | DX: N40.0 Benign prostatic hyperplasia without lower urinary tract symptoms (principal); Z12.5 Encounter for screening for malignant neoplasm of prostate; R35.0 Frequency of micturition; F17.200 Nicotine dependence, unspecified, uncomplicated | CPT/HCPCS: 81003; 99212 ==

== ENCOUNTER 2023-11-05 08:48 | Outpatient (AMB) | payer OTHER, SELFPAY ==
--- NOTE | 2023-11-05 09:20 | A.OFFVIS_ITS ---
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 Required: No Accompanied by: Self / Same As Patient Allergies No Known Allergies [No Known Allergies*] Allergy (Verified 08/28/23 08:07) HPI Comprehensive Diabetes Asmnt Most Recent Diabetes Results: Cholesterol 140 mg/dL (<200) 08/28/23 HDL Cholesterol 41 mg/dL (>40) 08/28/23 Triglycerides 61 mg/dL (<150) 08/28/23 [facility] Medical History COVID-19 vaccination declined Anxiety and depression Numbness and tingling Tongue burning sensation Pancreatolithiasis History of alcohol abuse Annual visit for general adult medical examination with abnormal findings 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 Son No problems noted. Son No problems noted. 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 Insulin to carb ratio, and insulin sensitivity factor calculated based on rule of 450 for insulin to ca rb ratio, and rule of 1500 for insulin sensitivity factor. Instructed patient on the importance of accurate calculation of the amount of carbs per meal Reviewed how to calculate mealtime bolus with insulin to carb ratio 1:13 Reviewed how to calculate correction dose with insulin sensitivity factor 1:44 Patient's TDD estimate 34 units Insulin to Carbohydrate ratio: Pt reports that desired blood glucose target is 120 mg/dL Pt able to calculated needed insulin based on estimated carbohydrate content Pt demonstrated at visit how to calculate mealtime insulin bolus and correction bolus. Instructed patient that there may need to be adjustment to insulin to carb ratio and sensitivity factor based on blood glucose trends. Patient will follow up with [facility] for evaluation of ratios and further education Medications: Discontinued flash glucose scanning reader (FreeStyle Roz 2 [place]) Discontinued Reason: Doctor's Order As directed 1 ea 0RF flash glucose sensor (FreeStyle Roz 2 Sensor kit) Discontinued Reason: Doctor's Order As directed every 2 weeks 2 ea 11RF E11.9 - Type 2 diabetes mellitus without complications Patient Instructions: Call when you receive Dexcom G6 supplies to set pump training appointment Coding Level of Care Code Est Pt Level 1 (32458) Diagnoses Type 2 diabetes mellitus with hyperglycemia, without long-term current use of insulin E11.65 Diabetes mellitus type: type 2
== END 2023-11-05 09:30 | disposition home or self-care (01) ==
PROVIDERS: PCP Internal Medicine; Visit Provider Registered Nurse Diabetes Educator
DX: E11.65 Type 2 diabetes mellitus with hyperglycemia (principal)

== ENCOUNTER → 2023-11-05 08:48 | Outpatient (BNVA) | payer OTHER, SELFPAY | PROVIDERS: PCP Internal Medicine; Visit Provider Registered Nurse Diabetes Educator | DX: E11.65 Type 2 diabetes mellitus with hyperglycemia (principal); Z79.4 Long term (current) use of insulin | CPT/HCPCS: 99211 ==

== ENCOUNTER 2023-11-10 12:34 | Outpatient (REF) | payer OTHER, SELFPAY ==
--- NOTE | ~2023-11-10 | XR_ITS ---
EXAMINATION: XR ABDOMEN KUB CLINICAL INDICATION: Unspecified intestinal obstruction, question bowel obstruction. COMPARISON: CT chest of 08/01/2023. CT abdomen and pelvis of 02/23/2021. TECHNIQUE: 2 AP views of the abdomen. FINDINGS: Degenerative changes in the lumbar spine. Small rounded pelvic calcifications are likely vascular. Moderate amount of stool in the colon. Nonobstructive bowel gas pattern. Innumerable radiodensities projecting over the upper abdomen. Prior CT scan demonstrated multiple pancreatic calcifications. XR/XR KUB IMPRESSION: 1. Nonobstructive bowel gas pattern. 2. Innumerable radiodensities projecting over the upper abdomen. Prior CT scan demonstrated multiple pancreatic calcifications characteristic of chronic pancreatitis.
[2023-11-10 13:45] LABS: MANUAL DIFF FLAG NO
[2023-11-10 14:01] LABS: Basophils Percent Auto 0.6 % (0-2); Eosinophils Percent Auto 0.6 % (0-4); Hematocrit 42.9 % (42.0-52.0); Hemoglobin 14.4 g/dl (14.0-18.0); Imm Gran Abs Auto 0.01 X10*3/uL (0.00-0.03); Imm Gran Pct Auto 0.2 % (0.0-0.4); Lymphocytes Absolute Auto 0.9 X10*3/uL (1.2-4.9); Lymphocytes Percent Auto 18.3 % (20-40); Mean Corpuscular HGB Conc 33.6 g/dl (31.0-36.0); Mean Corpuscular Hemoglobin 29.5 pg (27.0-33.0); Mean Corpuscular Volume 87.9 fL (80.0-98.0); Monocytes Absolute Auto 0.4 X10*3/uL (0.1-1.2); Monocytes Percent Auto 8.1 % (2-11); Neutrophils Absolute Auto 3.4 x10*3/uL (2.0-8.3); Neutrophils Percent Auto 72.2 % (45-73); Platelet Count 191 X10*3/uL (160-400); Red Blood Count 4.88 X10*6/uL (4.60-5.80); Red Cell Distribution Width 12.4 % (11.0-16.0); White Blood Count 4.7 X10*3/uL (4.8-10.8)
[2023-11-10 14:20] LABS: Alanine Aminotransferase 22 U/L (0-40); Albumin Level 4.5 g/dL (3.5-5.0); Alkaline Phosphatase 91 U/L (39-117); Anion Gap 15 (12-20); Aspartate Amino Transferase 15 U/L (5-37); Bilirubin Total 0.5 mg/dL (0.0-1.0); Blood Urea Nitrogen 10 mg/dL (9-16); Calcium 9.7 mg/dL (8.4-10.2); Carbon Dioxide 25 mmol/L (22-29); Chloride 106 mmol/L (96-108); Estimated Glomerular Filt Rate > 60; Glucose Random 205 mg/dL (60-115); Potassium 4.2 mmol/L (3.3-5.1); Sodium 142 mmol/L (135-145); Total Protein 7.3 g/dL (6.5-8.0)
[2023-11-10 14:35] LABS: Ferritin 122 ng/mL (20-250); Vitamin D 25-OH Total 10.5 ng/mL (>30)
[2023-11-10 14:48] LABS: Folate 12.1 ng/mL (> or = 4.0); Vitamin B12 374 pg/mL (200-900)
[2023-11-10 15:37] LABS: Appearance Urine Clear; Color Urine Yellow; Glucose Urine UA Negative (Negative); Leukocyte Esterase Urine Negative (Negative); Nitrite Urine Negative (Negative); Specific Gravity - Urine <= 1.005 (1.005-1.025); Urine Blood Negative (Negative); Urine Ketones Negative (Negative); Urine Protein Negative (Neg-Trace)
[2023-11-12 18:24] LABS: Zinc 76 mcg/dL (60-130)
[2023-11-13 11:23] LABS: Alpha-Tocopherol 4.5 mg/L (5.7-19.9); Beta-Gamma Tocopherol <1.0 mg/L (<=4.3)
[2023-11-13 17:22] LABS: Vitamin A 39 mcg/dL (38-98)
[2023-11-14 12:28] LABS: Vitamin B6 5.8 ng/mL (2.1-21.7)
[2023-11-15 10:48] LABS: Vitamin B1 <6 nmol/L (8-30)
[2023-11-15 13:24] LABS: Vitamin C 0.1 mg/dL (0.2-2.1)
[2023-11-16 15:17] LABS: Vitamin B5 (Pantothenic Acid) 58 ng/mL (<275)
[2023-11-16 16:38] LABS: Nicotinamide 20 ng/mL; Vit B3 - Nicotinic Acid <20 ng/mL
[2023-11-18 13:33] LABS: Vitamin K1 130 pg/mL (130-1500)
== END 2023-11-10 12:35 | disposition home or self-care (01) ==
LOC: HO.XRAY 12:34
PROVIDERS: PCP Internal Medicine; Visit Provider Internal Medicine Gastroenterology
DX: K86.1 Other chronic pancreatitis (principal); E46 Unspecified protein-calorie malnutrition; K56.609 Unspecified intestinal obstruction, unspecified as to partial versus complete obstruction; K86.89 Other specified diseases of pancreas; K75.81 Nonalcoholic steatohepatitis (NASH); R30.0 Dysuria; Z76.89 Persons encountering health services in other specified circumstances
CPT/HCPCS: 36415; 74018; 80053; 81003; 82180; 82306; 82607; 82728; 82746; 84207; 84425; 84446; 84590; 84591; 84597; 84630; 85025; 99212

== ENCOUNTER 2023-11-10 12:34 | Outpatient (AMB) | payer OTHER, SELFPAY ==
--- NOTE | 2023-11-10 12:38 | A.OFFVIS_ITS ---
Intake Vital Signs 11/10/23 12:40 Height 6 ft Weight 167 lb 8.821 oz BMI 22.7 BP 136/86 Blood Pressure Location Lt brachial Position Sitting Pulse 65 Intake Visit Reasons: Establish Care back with Dale Intake Note: Ishmael presents in the office as a follow up to establish care with Dale. CC: He has dull soreness that is in his flank area that has been happening for 2-3 weeks now. He states that he is not having any irregular bowel movements. Allergies No Known Allergies [No Known Allergies*] Allergy (Verified 11/10/23 12:42) HPI Establish Care back with Dale HPI Details 57 yr old m here for f/u RECAP: chronic pancreatitis 2/2 alcohol, sober for >15 yrs now INTERIM: he has noted some right sided discomfort in upper quad has been present daily last few weeks no nausea or vomiting 4/10 in severity, feels aching in nature --no rahs not affected by movement of coughing unsure if worse with food no diarrhea or constipation no blood in stools he takes creon with good effect not taking a multi vitamin EXAM: GENERAL: The patient is well developed and nontoxic. VITAL SIGNS:see workflow HEENT: Nonicteric sclerae, PERRLA, EOMI. Oropharynx clear. Moist mucous membranes. Conjunctivae appear well perfused. No thyroid mass. CHEST: Chest wall is nontender. HEART: Regular rate and rhythm without murmurs. LUNGS: Clear to auscultation bilaterally. ABDOMEN: Soft, positive bowel sounds, nontender, no organomegaly.no flank tenderness GENITAL:not done RECTAL: not done SKIN: No rash, no excessive bruising, petechiae, or purpura. NEUROLOGIC: Cranial nerves II-XII intact without motor/sensory deficit. A/P: .1. Vague RUQ pain, hx of chronic pancre atitis, no focal findings on clinical exam, CT 2020 reviewed with dilated PD with stones noted and right sided constipation, OA of spine PLAN: 1/ check nutrients 2/ US abdo, and KUB, might need MRI 3/ consider DEXA at next visit 4/ advised on taking MV 5/ check UA 6/ not smoking cigs but vaping, 7/ discussed possible ERCP and stone rem oval vs Carl procedure if worsening pancreatitis PFSH Medical History COVID-19 vaccination declined Anxiety and depression Numbness and tingling Tongue burning sensation Pancreatolithiasis History of alcohol abuse Annual visit for general adult medical examination with abnormal findings 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 Son No problems noted. Son No problems noted. 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 Vague RUQ pain, hx of chronic pancreatitis, no focal findings on clinical exam, CT 2020 reviewed with dilated PD with stones noted and right sided constipation, OA of spine PLAN: 1/ check nutrients 2/ US abdo, and KUB, might need MRI 3/ consider DEXA at next visit 4/ advised on taking MV 5/ check UA 6/ not smoking cigs but vaping, 7/ discussed possible ERCP and stone removal vs Carl procedure if worsening pancreatitis (2) Pancreatolithiasis: Code(s): K86.89 - Other specified diseases of pancreas Plan: A/P: .1. Vague RUQ pain, hx of chronic pancreatitis, no focal findings on clinical exam, CT 2020 reviewed with dilated PD with stones noted and right sided constipation, OA of spine PLAN: 1/ check nutrients 2/ US abdo, and KUB, might need MRI 3/ consider DEXA at next visit 4/ advised on taking MV 5/ check UA 6/ not smoking cigs but vaping, 7/ discussed possible ERCP and stone removal vs Carl procedure if worsening pancreatitis (3) Malnutrition: Code(s): E46 - Unspecified protein-calorie malnutrition Plan: A/P: .1. Vague RUQ pain, hx of chronic pancreatitis, no focal findings on clinical exam, CT 2020 reviewed with dilated PD with stones noted and right sided constipation, OA of spine PLAN: 1/ check nutrients 2/ US abdo, and KUB, might need MRI 3/ consider DEXA at next visit 4/ advised on taking MV 5/ check UA 6/ not smoking cigs but vaping, 7/ discussed possible ERCP and stone removal vs Carl procedure if worsening pancreatitis (4) Bowel obstruction: Code(s): K56.609 - Unspecified intestinal obstruction, unspecified as to partial versus complete obstruction Plan: A/P: .1. Vague RUQ pain, hx of chronic pancreatitis, no focal findings on clinical exam, CT 2020 reviewed with dilated PD with stones noted and right sided constipation, OA of spine PLAN: 1/ check nutrients 2/ US abdo, and KUB, might need MRI 3/ consider DEXA at next visit 4/ advised on taking MV 5/ check UA 6/ not smoking cigs but vaping, 7/ discussed possible ERCP and stone removal vs Carl procedure if worsening pancreatitis Orders: Orders Vitamin B1 Today E46 - Unspecified protein-calorie malnutrition, K86.1 - Other chronic pancreatitis, K86.89 - Other specified diseases of pancreas Vitamin B3 (Niacin) Today E46 - Unspecified protein-calorie malnutrition, K86.1 - Other chronic pancreatitis, K86.89 - Other specified diseases of pancreas Vitamin C Today E46 - Unspecified protein-calorie malnutrition, K86.1 - Other chronic pancreatitis, K86.89 - Other specified diseases of pancreas Vitamin K1 Today E46 - Unspecified protein-calorie malnutrition, K86.1 - Other chronic pancreatitis, K86.89 - Other specified diseases of pancreas Comprehensive Met. Panel Today E46 - Unspecified protein-calorie malnutrition, K75.81 - Nonalcoholic steatohepatitis (QUINONEZ), K86.1 - Other chronic pancreatitis, K86.89 - Other specified diseases of pancreas US abdomen complete Today E46 - Unspecified protein-calorie malnutrition, K86.1 - Other chronic pancreatitis, K86.89 - Other specified diseases of pancreas XR KUB Today K56.609 - Unspecified intestinal obstruction, unspecified as to partial versus complete obstruction Vitamin A Today E46 - Unspecified protein-calorie malnutrition, K86.1 - Other chronic pancreatitis, K86.89 - Other specified diseases of pancreas Vitamin B12 and Folate Today E46 - Unspecified protein-calorie malnutrition, K86.1 - Other chronic pancreatitis, K86.89 - Other specified diseases of pancreas Vitamin B5 (Pantothenic Acid) Today E46 - Unspecified protein-calorie malnutrition, K86.1 - Other chronic pancreatitis, K86.89 - Other specified diseases of pancreas Vitamin B6 Today E46 - Unspecified protein-calorie malnutrition, K86.1 - Other chronic pancreatitis, K86.89 - Other specified diseases of pancreas Vitamin D 25-OH Total Today E46 - Unspecified protein-calorie malnutrition, K86.1 - Other chronic pancreatitis, K86.89 - Other specified diseases of pancreas Vitamin E Today E46 - Unspecified protein-calorie malnutrition, K86.1 - Other chronic pancreatitis, K86.89 - Other specified diseases of pancreas Zinc Today E46 - Unspecified protein-calorie malnutrition, K86.1 - Other chronic pancreatitis, K86.89 - Other specified diseases of pancreas Ferritin Today E46 - Unspecified protein-calorie malnutrition, K86.1 - Other chronic pancreatitis, K86.89 - Other specified diseases of pancreas Complete Blood Count Auto Diff Today E46 - Unspecified protein-calorie malnut rition, K86.1 - Other chronic pancreatitis, K86.89 - Other specified diseases of pancreas UA CC w/rflx Micro + Cult Today R30.0 - Dysuria Coding Level of Care Code Est Pt Level 4 (75924) Diagnoses Chronic pancreatitis K86.1 Pancreatolithiasis K86.89 Malnutrition E46 Bowel obstruction K50.143
[2023-11-10 12:40] VITALS: BP 136/86; PULSE 65; BMI 22.7
== END 2023-11-10 13:23 | disposition home or self-care (01) ==
PROVIDERS: PCP Internal Medicine; Visit Provider Internal Medicine Gastroenterology
DX: K86.1 Other chronic pancreatitis (principal); K86.89 Other specified diseases of pancreas; E46 Unspecified protein-calorie malnutrition; K56.609 Unspecified intestinal obstruction, unspecified as to partial versus complete obstruction
CPT/HCPCS: 99214

== ENCOUNTER 2023-11-13 14:16 | Outpatient (AMB) | payer OTHER, SELFPAY ==
--- NOTE | 2023-11-13 15:29 | A.OFFVIS_ITS ---
Intake Intake Visit Reasons: DM OmniPod/PHONE NOT IN SERIVCE Reinforcing Rod Layer Required: No Accompanied by: Self / Same As Patient Allergies No Known Allergies [No Known Allergies*] Allergy (Verified 11/10/23 12:42) HPI Comprehensive Diabetes Asmnt Most Recent Diabetes Results: Cholesterol 140 mg/dL (<200) 08/28/23 HDL Cholesterol 41 mg/dL (>40) 08/28/23 Triglycerides 61 mg/dL (<150) 08/28/23 Creatinine 1.06 mg/dL (0.5-1.4) 11/10/23 Blood Urea Nitrogen 10 mg/dL (9-16) 11/10/23 Sodium 142 mmol/L (135-145) 11/10/23 Potassium 4.2 mmol/L (3.3-5.1) 11/10/23 Chloride 106 mmol/L (96-108) 11/10/23 Carbon Dioxide 25 mmol/L (22-29) 11/10/23 Calcium 9.7 mg/dL (8.4-10.2) 11/10/23 AST 15 U/L (5-37) 11/10/23 ALT 22 U/L (0-40) 11/10/23 Total Protein 7.3 g/dL (6.5-8.0) 11/10/23 Albumin 4.5 g/dL (3.5-5.0) 11/10/23 REPLACED BY [facility] Medical History COVID-19 vaccination declined Anxiety and depression Numbness and tingling Tongue burning sensation Pancreatolithiasis History of alcohol abuse Annual visit for general adult medical examination with abnormal findings 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 Son No problems noted. Son No problems noted. 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 The following topics were reviewed today: -Pump therapy basic concepts: Basal/bolus, insulin to carb ratio, correction factor, insulin on board -Device settings: Bluetooth/mobile connection (if applicable), correct date and time, sound volume -CGM settings(if integrated system): CGM graft views and trend arrows, alerts and alarms, Start new sensor ??? High Alert: 250 mg/dl ??? Low Alert: 70 mg/dl ??? Insulin delivery settings Program insulin to carb ratio, correction factor, target blood glucose, suspend or resume insulin delivery, bolus limit and basal limit settings Instructed patient to only use room temperature insulin, how to load cartridge or fill pod, with insulin. Fill tubing and cannula (if applicable) Inserting infusion set or starting pod Troubleshooting after starting new pod or inserting new insulin set: Occlusion, adhesive tape sensitivity, redness Check BG 2 hours after site change Safety information: Importance of a backup plan, for manual injections, proper prescriptions and emergency supplies ketone strips, and rules for testing for ketones Patient was able to insert insulin set today without difficulty. Patient understands the basic concepts of pump therapy, how to give insulin for meals and snacks, how to troubleshoot for hyper and hypoglycemia. Setting verified by [facility] Basal rate(s) (units/hour) : 12 AM to 12 AM 0.7 units / hr Bolus setting Insulin Carbohydrate Ratio (s) 12 AM to 12 AM 1:13 Correction Factor / Sensitivity Factor 12 AM to 12 AM 1:44 Active Insulin Time:? 4 hours Target(s): 12 AM to 12 AM 110 mg/dL Correction threshold: 12 AM to 12 AM 120 mg/dL Patient will follow up with CDE as instructed Patient will contact CDE with questions or concerns, patient given IT number to support in any technical issues related to insulin pump Patient Instructions: Patient will follow-up in 1 week Patient will contact adult educator or Omnipod support with questions or concerns Coding Level of Care Code Est Pt Level 1 (78043) Diagnoses Type 2 diabetes mellitus with hyperglycemia, without long-term current use of insulin E11.65 Diabetes mellitus type: type 2
== END 2023-11-13 15:36 | disposition home or self-care (01) ==
PROVIDERS: PCP Internal Medicine; Visit Provider Registered Nurse Diabetes Educator
DX: E11.65 Type 2 diabetes mellitus with hyperglycemia (principal)

== ENCOUNTER → 2023-11-13 14:16 | Outpatient (BNVA) | payer OTHER, SELFPAY | PROVIDERS: PCP Internal Medicine; Visit Provider Registered Nurse Diabetes Educator | DX: Z46.81 Encounter for fitting and adjustment of insulin pump (principal); E11.65 Type 2 diabetes mellitus with hyperglycemia | CPT/HCPCS: 99211 ==

== ENCOUNTER 2023-11-20 12:17 | Outpatient (AMB) | payer OTHER, SELFPAY ==
--- NOTE | 2023-11-20 12:54 | A.OFFVIS_ITS ---
Intake Intake Visit Reasons: DM Hvac Instructor Required: No Accompanied by: Self / Same As Patient Allergies No Known Allergies [No Known Allergies*] Allergy (Verified 11/10/23 12:42) HPI Comprehensive Diabetes Asmnt Most Recent Diabetes Results: Microalb/Creat Ratio 173.7 ug/mg cr (<30) H 07/03/23 Cholesterol 140 mg/dL (<200) 08/28/23 HDL Cholesterol 41 mg/dL (>40) 08/28/23 Triglycerides 61 mg/dL (<150) 08/28/23 Creatinine 1.06 mg/dL (0.5-1.4) 11/10/23 Blood Urea Nitrogen 10 mg/dL (9-16) 11/10/23 Sodium 142 mmol/L (135-145) 11/10/23 Potassium 4.2 mmol/L (3.3-5.1) 11/10/23 Chloride 106 mmol/L (96-108) 11/10/23 Carbon Dioxide 25 mmol/L (22-29) 11/10/23 Calcium 9.7 mg/dL (8.4-10.2) 11/10/23 AST 15 U/L (5-37) 11/10/23 ALT 22 U/L (0-40) 11/10/23 Total Protein 7.3 g/dL (6.5-8.0) 11/10/23 Albumin 4.5 g/dL (3.5-5.0) 11/10/23 [facility] Medical History COVID-19 vaccination declined Anxiety and depression Numbness and tingling Tongue burning sensation Pancreatolithiasis History of alcohol abuse Annual visit for general adult medical examination with abnormal findings 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 Son No problems noted. Son No problems noted. 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 The following topics were reviewed today: -auto mode verses manual mode ??? High Alert: 250 mg/dl ??? Low Alert: 70 mg/dl Patient's average glucose for the past week 156 mg/dL Patient above target 26% Patient at target 74% Patient below target 0% Patient's last A1c in June 2023 7.3% Patient overdue for A1c message sent to Dr. Duvall to enter A1c order Patient was only in auto mode for 4% of the last 7 days. Recommended patient put pump into auto mode, the advantage of auto mode is when glucose is trending downward pump will adjust basal insulin to reduce risk of hypoglycemia when patient's sensor is trending higher pump will increase basal rate to try and compensate for hyperglycemia??? Insulin delivery settings Program insulin to carb ratio, correction factor, target blood glucose, suspend or resume insulin delivery, bolus limit and basal limit settings Instructed patient to only use room temperature insulin, how to load cartridge or fill pod, with insulin. Fill tubing and cannula (if applicable) Inserting infusion set or starting pod Troubleshooting after starting new pod or inserting new insulin set: Occlusion, adhesive tape sensitivity, redness Check BG 2 hours after site change Safety information: Importance of a backup plan, for manual injections, proper prescriptions and emergency supplies ketone strips, and rules for testing for ketones Patient was able to insert insulin set today without difficulty. Patient understands the basic concepts of pump therapy, how to give insulin for meals and snacks, how to troubleshoot for hyper and hypoglycemia. Setting verified by [facility], no changes to patient's pump settings at this visit Basal rate(s) (units/hour) : 12 AM to 12 AM 0.7 units / hr Bolus setting Insulin Carbohydrate Ratio (s) 12 AM to 12 AM 1:13 Correction Factor / Sensitivity Factor 12 AM to 12 AM 1:44 Active Insulin Time:? 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
== END 2023-11-20 12:55 | disposition home or self-care (01) ==
PROVIDERS: PCP Internal Medicine; Visit Provider Registered Nurse Diabetes Educator
DX: E13.9 Other specified diabetes mellitus without complications (principal); S36.209S Unspecified injury of unspecified part of pancreas, sequela

== ENCOUNTER → 2023-11-20 12:17 | Outpatient (BNVA) | payer OTHER, SELFPAY | PROVIDERS: PCP Internal Medicine; Visit Provider Registered Nurse Diabetes Educator | DX: Z46.81 Encounter for fitting and adjustment of insulin pump (principal); E13.9 Other specified diabetes mellitus without complications; S36.209S Unspecified injury of unspecified part of pancreas, sequela | CPT/HCPCS: 99211 ==

== ENCOUNTER 2023-11-27 08:09 | Outpatient (REF) | payer OTHER, SELFPAY ==
--- NOTE | ~2023-11-27 | US_ITS ---
EXAMINATION: US ABDOMEN COMPLETE CLINICAL INFORMATION: Unspecified protein-calorie malnutrition. Right upper quadrant pain. Chronic pancreatitis. COMPARISON: X-ray abdomen KUB 11/10/2023. CT chest screening 08/01/2023. CT abdomen and pelvis 02/23/2021. MRI abdomen 11/13/2020. Ultrasound abdomen complete 10/02/2020. TECHNIQUE: Real-time imaging of the abdominal viscera. FINDINGS: PANCREAS: There are multiple echogenic calcifications throughout the pancreas. The pancreatic duct is dilated measuring 1.9 cm. There are multiple echogenic stones, largest measuring 1.0 cm. ABDOMINAL AORTA: The proximal, mid, and distal segments are normal in caliber. INFERIOR VENA CAVA: Visualized portions are normal. LIVER: Normal. The liver is normal in size. The liver contour is normal. Parenchymal echogenicity is normal. No focal hepatic lesion. There is no intrahepatic biliary duct dilatation seen. GALLBLADDER: Normal. The gallbladder is physiologically distended without evidence of stones, sludge, polyps, wall thickening or pericholecystic fluid. COMMON BILE DUCT: Normal in caliber measuring 0.7 cm in diameter. RIGHT KIDNEY: No hydronephrosis or renal calculi. The kidney measures 11.2 cm in maximum dimension. There is an anechoic cyst in the midpole measuring 2.3 x 2.2 x 2.4 cm. LEFT KIDNEY: Normal. No hydronephrosis. No renal calculi or focal parenchymal lesions. The kidney measures 10.2 cm in maximum dimension. SPLEEN: Normal. The spleen measures 9.1 cm in maximum dimension. FREE FLUID: None. US/US abdomen complete IMPRESSION: 1. Diffuse echogenic calcifications throughout the pancreas with dilated pancreatic duct and multiple echogenic stones. These were visualized on the previous CT chest screening exam 08/01/2023. There is anechoic cyst midpole right kidney. 2. The rest of the abdominal ultrasound is unremarkable.
[2023-11-27 11:56] LABS: Estimated Average Glucose 146 mg/dL; Hemoglobin A1c % 6.7 % (<6.0)
== END 2023-11-27 08:10 | disposition home or self-care (01) ==
LOC: HO.HMGCX 08:09
PROVIDERS: PCP Internal Medicine; Referring Provider Internal Medicine Endocrinology, Diabetes & Metabolism; Visit Provider Internal Medicine Gastroenterology
DX: E46 Unspecified protein-calorie malnutrition (principal); K86.89 Other specified diseases of pancreas; K86.1 Other chronic pancreatitis; S36.209S Unspecified injury of unspecified part of pancreas, sequela; E13.9 Other specified diabetes mellitus without complications; X58.XXXS Exposure to other specified factors, sequela
CPT/HCPCS: 36415; 76700; 83036

== ENCOUNTER 2023-12-17 07:51 | Outpatient (AMB) | payer OTHER, SELFPAY ==
--- NOTE | 2023-12-17 07:56 | A.OFFVIS_ITS ---
Intake Vital Signs 12/17/23 08:01 Height 6 ft Weight 170 lb BMI 23.1 BP 120/74 Blood Pressure Location Rt brachial Position Sitting Respiration 16 Pulse 59 Pulse Source Pulse Oximeter Pulse Oximetry (%) 96 Oxygen Delivery Method Room Air Intake Visit Reasons: NYO-[id number]-DUH Intake Note: Pt presents for new pt evaluation for glossodynia. Pt reports this has been painful x 2 years. He says it starts in the upper right gum area and radiates to the tongue. During sleep, he frequently bites his cheeks. 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: No Allergies No Known Allergies [No Known Allergies*] Allergy (Verified 12/17/23 07:59) Medication List - Last Reconciled 12/17/23 by Anya Gibbons MD alcohol swabs (Alcohol Wipes) 1 pad topical TID blood sugar diagnostic (FreeStyle Lite Strips) Check blood sugar as directed twice a day before meals blood-glucose meter (FreeStyle Lite Meter kit) Check blood sugar as directed before meals twice a day blood-glucose sensor (Dexcom G6 Sensor device) As directed change every 10 days blood-glucose transmitter (Dexcom G6 Transmitter device) As directed cholecalciferol (vitamin D3) 1,250 mcg PO QWEEK flash glucose sensor (FreeStyle Roz 2 Sensor kit) As directed insulin lispro (Humalog KwikPen (U-100) Insulin) inject 3-15 units subcutaneously 3 times a day; insulin lispro Infuse up to 34 units via insulin pump per day subcutaneously; insulin pump cart,auto,BT-cntr (Omnipod 5 G6 Intro Kit (Gen 5) subcutaneous cartridge with controller) As directed insulin pump cart,automated,BT (Omnipod 5 G6 Pods (Gen 5) subcutaneous cartridge) As directed change every 72 hours lancets (FreeStyle Lancets) Check blood sugar twice a day as directed before meals oemkpc-[id number]-qhmkgbz 36,000-114,000- 180,000 unit (Creon) caps PO yeaifh-acoysosh-rztflgr 6,000-19,000 -30,000 unit (Creon) 11.14698 caps PO TID lisinopril 10 mg PO DAILY pen needle, diabetic (BD Ultra-Fine Kim Pen Needle) As directed four times a day tamsulosin (Flomax) 0.4 mg PO BEDTIME thiamine HCl (vitamin B1) 300 mg (3 x 100 mg) PO DAILY HPI HPI Comments History of Present Illness Details 57y/o male comes here for evaluation of tingling in the gum , tongue, inner cheek on the right side. It started about 2-3 years ago . He had a right upper molar extraction- which could not be completed, he was referred to maxillofacial surgeon who completed the extraction.It started as infrequent episodes now he has daily episodes which can last the whole day . He feels it resolves at bedtimes. He also describes as numbing feeling. 1-2 times a week when he takes a nap he tends to bite his cheek .No difficulty speaking or swallowing . He denies pain. He describes it as pins and needles sensation and mild burning. He denies any shooting pain from ear down his cheek. He feels it in his tongue more after he eats but not sure eating or drinking triggers any episodes. Change in temperature or spicy food does not worsen.He denies frequent headaches. No head injury. He has h/o chronic pancreatitis due to alcohol. He quit 16 years ago. Now he has diabetes - on an insulin pump for past 2 mths . 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 Son No problems noted. Son No problems noted. 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 Current occupational exposures/hazards: No Cognitive needs: No Hearing needs: No Vision needs: No Physical Exam Vital Signs: Last Vital Signs Pulse 59 12/17/23 08:01 Resp 16 12/17/23 08:01 BP 120/74 12/17/23 08:01 Pulse Ox 96 12/17/23 08:01 Oxygen Delivery Method Room Air 12/17/23 08:01 BMI result Body Mass Index 23.1 Const General: cooperative, healthy appearing, comfortable and no acute distress Nutritional Appearance: average body habitus Orientation/consciousness: patient oriented x3 Eyes Pupils: Equal, round and reactive pupils present Neuro General: patient oriented x3, gait normal, tone normal, moves all extremities and no focal motor deficits Cranial nerves: Yes Facial sensation intact/muscles of mastication intact, Yes Equal, round and reactive pupils present, Yes Bilaterally intact EOM present, Yes Nystagmus not present, Yes Normal facial strength present and Yes Midline tongue present Cognition (Neuro): normal cognition Gait exam (Neuro): Normal gait present Motor exam (neuro): 5/5 motor strength present throughout and Normal motor muscle tone present throughout Deep tendon reflexes (DTR's): Right triceps reflex intensity grade: 1+, Left triceps reflex intensity grade: 1+, Rt Biceps (C5, C6): 1+, Left biceps reflex intensity grade: 1+, Right brachioradialis reflex intensity grade: 1+, Left brachioradialis reflex intensity grade: 1+, Right patellar reflex intensity grade: 1+ and Left patellar reflex intensity grade: 1+ Coordination: mlldce-di-ulsr test normal Assessment & Plan Assessment & Plan (1) Facial neuralgia: Comment: right Trigeminal neuralgia ( V2) likely triggered by the dental extraction, diabetes, malnutrition etc. Code(s): G51.8 - Other disorders of facial nerve Plan He was on gabpentin before and did not see a response. I will trial him on amitriptyline 10 mg qhs , if he does not respond will trail carbamazepine. 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 Medications: New amitriptyline 10 mg PO BEDTIME 30 tabs 6RF Coding Level of Care Code New Pt Level 4 (63732) Diagnoses Facial neuralgia G51.8
[2023-12-17 08:01] VITALS: BP 120/74; PULSE 59; RESP 16; O2SAT 96; BMI 23.1
== END 2023-12-17 08:40 | disposition home or self-care (01) ==
PROVIDERS: PCP Internal Medicine; Visit Provider Psychiatry & Neurology Neurology
DX: G51.8 Other disorders of facial nerve (principal)
CPT/HCPCS: 99204

== ENCOUNTER → 2023-12-17 07:51 | Outpatient (BNVA) | payer OTHER, SELFPAY | PROVIDERS: PCP Internal Medicine; Visit Provider Psychiatry & Neurology Neurology | DX: G51.8 Other disorders of facial nerve (principal) | CPT/HCPCS: 99202 ==

== ENCOUNTER 2023-12-18 11:09 | Outpatient (AMB) | payer OTHER, SELFPAY ==
--- NOTE | 2023-12-18 11:49 | A.OFFVIS_ITS ---
Intake Intake Visit Reasons: DM Medical Technologist Generalist Required: No Accompanied by: Self / Same As Patient Allergies No Known Allergies [No Known Allergies*] Allergy (Verified 12/17/23 07:59) HPI Comprehensive Diabetes Asmnt Most Recent Diabetes Results: Microalb/Creat Ratio 173.7 ug/mg cr (<30) H 07/03/23 Cholesterol 140 mg/dL (<200) 08/28/23 HDL Cholesterol 41 mg/dL (>40) 08/28/23 Triglycerides 61 mg/dL (<150) 08/28/23 Creatinine 1.06 mg/dL (0.5-1.4) 11/10/23 Blood Urea Nitrogen 10 mg/dL (9-16) 11/10/23 Sodium 142 mmol/L (135-145) 11/10/23 Potassium 4.2 mmol/L (3.3-5.1) 11/10/23 Chloride 106 mmol/L (96-108) 11/10/23 Carbon Dioxide 25 mmol/L (22-29) 11/10/23 Calcium 9.7 mg/dL (8.4-10.2) 11/10/23 AST 15 U/L (5-37) 11/10/23 ALT 22 U/L (0-40) 11/10/23 Total Protein 7.3 g/dL (6.5-8.0) 11/10/23 Albumin 4.5 g/dL (3.5-5.0) 11/10/23 [facility] Medical History (Updated 12/17/23 @ 08:36 by Anya Gibbons MD) Facial neuralgia COVID-19 vaccination declined Anxiety and depression Numbness and tingling Tongue burning sensation Pancreatolithiasis History of alcohol abuse Annual visit for general adult medical examination with abnormal findings 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 Son No problems noted. Son No problems noted. 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 The following topics were reviewed today: -auto mode verses manual mode ??? High Alert: 250 mg/dl ??? 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 Duvall in February 2024 Troubleshooting after starting new pod or inserting new insulin set: Occlusion, adhesive tape sensitivity, redness Check BG 2 hours after site change Safety information: Importance of a backup plan, for manual injections, proper prescriptions and emergency supplies ketone strips, and rules for testing for ketones Patient understands the basic concepts of pump therapy, how to give insulin for meals and snacks, how to troubleshoot for hyper and hypoglycemia. Setting verified by [facility], no changes to patient's pump settings at this visit Basal rate(s) (units/hour) : 12 AM to 12 AM 0.7 units / hr Bolus setting Insulin Carbohydrate Ratio (s) 12 AM to 12 AM 1:13 Correction Factor / Sensitivity Factor 12 AM to 12 AM 1:44 Active Insulin Time:? 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
== END 2023-12-18 11:59 | disposition home or self-care (01) ==
PROVIDERS: PCP Internal Medicine; Visit Provider Registered Nurse Diabetes Educator
DX: E13.9 Other specified diabetes mellitus without complications (principal); S36.209S Unspecified injury of unspecified part of pancreas, sequela

== ENCOUNTER → 2023-12-18 11:09 | Outpatient (BNVA) | payer OTHER, SELFPAY | PROVIDERS: PCP Internal Medicine; Visit Provider Registered Nurse Diabetes Educator | DX: Z46.81 Encounter for fitting and adjustment of insulin pump (principal); E13.9 Other specified diabetes mellitus without complications; S36.209S Unspecified injury of unspecified part of pancreas, sequela; Z79.4 Long term (current) use of insulin | CPT/HCPCS: 99211 ==

== ENCOUNTER 2024-01-27 08:23 | Outpatient (AMB) | payer OTHER, SELFPAY ==
--- NOTE | 2024-01-27 08:25 | MHC.OFFVIS ---
Intake Vital Signs 01/27/24 08:26 Height 6 ft Weight 170 lb 6.677 oz BMI 23.1 BP 122/70 Blood Pressure Location Lt brachial Position Sitting Pulse 59 Pulse Source Pulse Oximeter Intake Visit Reasons: f/u pancreolytic diabetes-confirmed Intake Note: Patient receives DME supplies through: Pharmacy Last Diabetic Eye exam: [facility] 07/11/2023 Last Podiatry Visit: Doesn't have one Random Glucose: 108 mg/dl HgA1C: 6.7% 11/27/2023 Dicer Operator Required: No Accompanied by: Self / Same As Patient Allergies No Known Allergies [No Known Allergies*] Allergy (Verified 01/27/24 08:31) Medication List - Last Reconciled 01/27/24 by Samy Duvall MD alcohol swabs (Alcohol Wipes) 1 pad topical TID amitriptyline 10 mg PO BEDTIME blood sugar diagnostic (FreeStyle Lite Strips) Check blood sugar as directed twice a day before meals blood-glucose meter (FreeStyle Lite Meter kit) Check blood sugar as directed before meals twice a day blood-glucose sensor (Dexcom G6 Sensor device) As directed change every 10 days blood-glucose transmitter (Dexcom G6 Transmitter device) As directed cholecalciferol (vitamin D3) 1,250 mcg PO QWEEK flash glucose sensor (FreeStyle Roz 2 Sensor kit) As directed insulin lispro (Humalog KwikPen (U-100) Insulin) inject 3-15 units subcutaneously 3 times a day; insulin lispro Infuse up to 34 units via insulin pump per day subcutaneously; insulin pump cart,auto,BT-cntr (Omnipod 5 G6 Intro Kit (Gen 5) subcutaneous cartridge with controller) As directed insulin pump cart,automated,BT (Omnipod 5 G6 Pods (Gen 5) subcutaneous cartridge) As directed change every 72 hours lancets (FreeStyle Lancets) Check blood sugar twice a day as directed before meals zogxvj-ugwkkjji-ewwtldm 36,000-114,000- 180,000 unit (Creon) caps PO rygbkv-lzpicoax-bqrdnqi 6,000-19,000 -30,000 unit (Creon) 11.83809 caps PO TID lisinopril 10 mg PO DAILY pen needle, diabetic (BD Ultra-Fine Kim Pen Needle) As directed four times a day tamsulosin (Flomax) 0.4 mg PO BEDTIME thiamine HCl (vitamin B1) 300 mg (3 x 100 mg) PO DAILY HPI HPI Comments History of Present Illness Details Patient is a 58 year old male with DM diagnosed September 2020 who presents for management of diabetes. . He did have a low C-peptide 2019. He has a very low carb to no carb diet. 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 4 hours Target(s): 12 AM to 12 AM 110 mg/dL Correction threshold: 12 AM to 12 AM 120 mg/dL Total daily dose is 31.3 units with 56% basal and 44% bolus. Auto mode is in use 100% of the time Continuous glucose monitoring: In the last 14 days C GM is active 88% an average blood glucose of 152 . GM I .6.9%. Glucose variability 27 . , . Blood glucose in target range of 70-180,79 %. Glucose high from 181-250,18 %. Glucose very high over 250, 3%. there is 0% hypoglycemia. Pattern shows steady glucose is with slight increase after dinner Symptoms reported: denies numbness, tingling, in toes Hypoglycemia: once ever 1-2 weeks, states hardly feels anything. Treats with skittles or monitors and makes sure that bg increasing. 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 Eye exam: - ou no retinopathy Laboratory Tests 08/17/21 08/17/21 08/17/21 11:32 11:32 11:32 Creatinine Estimated GFR Hemoglobin A1c % 7.8 Triglycerides 53 Cholesterol 139 LDL Cholesterol, C alc 83 HDL Cholesterol 46 25-OH Vitamin D To mirta 29.0 Microalb/Creat Rat io TNP 11/06/21 09:16 Creatinine 1.19 Estimated GFR > 60 Hemoglobin A1c % Triglycerides Cholesterol LDL Cholesterol, C alc HDL Cholesterol 25-OH Vitamin D To mirta Microalb/Creat Rat io [facility] Medical History (Updated 12/17/23 @ 08:36 by Anya Gibbons MD) Facial neuralgia COVID-19 vaccination declined Anxiety and depression Numbness and tingling Tongue burning sensation Pancreatolithiasis History of alcohol abuse Annual visit for general adult medical examination with abnormal findings 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 Son No problems noted. Son No problems noted. 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 Absence of acromegalic features. Neck exam reveals nl size thyroid about 15 gms. No thyroid nodules palpable. No carotid bruits present. Lungs CTA. Heart S1 S2, Reg R/R. No M/R/ G. Skin exam reveals absence of vitiligo or acanthosis nigricans. Abdominal exam reveals Soft NT/ND with NA BS. No organomegaly present. Neck Other: . Extrem Other: Visual exam of foot performed. No ulcerations or open lesions. No onchomycosis, no callouses.Pulses 2 + distally Sensation intact to monofilament exam. 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
[2024-01-27 08:26] VITALS: BP 122/70; PULSE 59; BMI 23.1
[2024-01-27 08:37] LABS: Glucose, Whole Blood 108 mg/dL (60-115)
== END 2024-01-27 08:47 | disposition home or self-care (01) ==
PROVIDERS: PCP Internal Medicine; Visit Provider Internal Medicine Endocrinology, Diabetes & Metabolism
DX: E13.9 Other specified diabetes mellitus without complications (principal); S36.209S Unspecified injury of unspecified part of pancreas, sequela
CPT/HCPCS: 99214

== ENCOUNTER → 2024-01-27 08:23 | Outpatient (BNVA) | payer OTHER, SELFPAY | PROVIDERS: PCP Internal Medicine; Visit Provider Internal Medicine Endocrinology, Diabetes & Metabolism | DX: Z46.81 Encounter for fitting and adjustment of insulin pump (principal); E13.9 Other specified diabetes mellitus without complications; S36.209S Unspecified injury of unspecified part of pancreas, sequela; Z79.4 Long term (current) use of insulin | CPT/HCPCS: 82947; 99212 ==

== ENCOUNTER 2024-02-02 11:34 | Outpatient (AMB) | payer OTHER, SELFPAY ==
[2024-02-02 11:46] VITALS: BP 130/89; BMI 22.7
--- NOTE | 2024-02-02 11:46 | MHC.OFFVIS ---
Vital Signs 02/02/24 11:46 Height 6 ft Weight 167 lb 8.821 oz BMI 22.7 BP 130/89 Blood Pressure Location Lt brachial Position Sitting Intake Visit Reasons: 3 month follow up Intake Note: Ishmael presents in the office as a 3 month follow up. CC: States that he is not having any concerns at this time. Genetic Scientist Required: No Allergies No Known Allergies [No Known Allergies*] Allergy (Verified 02/02/24 11:47) HPI HPI 3 month follow up: Details: 58 yr old m here for f/u RECAP: chronic pancreatitis 2/2 alcohol, sober for >15 yrs now LABS: vit c, Vit D, Vit b1, vit e all low US 11/27/23 multiple calcifications/stone pancreas, dilated PD, INTERIM: He is pretty well he has been taking suppelements saw some blood in sperm--waiting to see urology no diarrhea or constipation no blood in stools compliant with creon EXAM: GENERAL: The patient is well developed and nontoxic. VITAL SIGNS:see workflow HEENT: Nonicteric sclerae, PERRLA, EOMI. Oropharynx clear. Moist mucous membranes. Conjunctivae appear well perfused. No thyroid mass. CHEST: Chest wall is nontender. HEART: Regular rate and rhythm without murmurs. LUNGS: Clear to auscultation bilaterally. ABDOMEN: Soft, positive bowel sounds, nontender, no organomegaly.no flank tenderness GENITAL:not done RECTAL: not done SKIN: No rash, no excessive bruising, petechiae, or purpura. NEUROLOGIC: Cranial nerves II-XII intact without motor/sensory deficit. A/P: .1. 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 Son No problems noted. Son No problems noted. 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 Current occupational exposures/hazards: No Cognitive needs: No Hearing needs: No Vision needs: No Physical Exam Vital Signs: BMI result Body Mass Index 22.7 Assessment & Plan Assessment & Plan (1) Malnutrition: Code(s): E46 - Unspecified protein-calorie malnutrition Category: Medical Plan: see above Orders: Orders Vitamin B1 Today E46 - Unspecified protein-calorie malnutrition Vitamin A Today E46 - Unspecified protein-calorie malnutrition Vitamin C Today E46 - Unspecified protein-calorie malnutrition Vitamin D 25-OH Total Today E46 - Unspecified protein-calorie malnutrition Vitamin E Today E46 - Unspecified protein-calorie malnutrition
== END 2024-02-02 12:12 | disposition home or self-care (01) ==
LOC: HO.HGI 11:34
PROVIDERS: PCP Internal Medicine; Visit Provider Internal Medicine Gastroenterology
DX: E46 Unspecified protein-calorie malnutrition (principal)
CPT/HCPCS: 99213

== ENCOUNTER 2024-02-02 11:34 | Outpatient (REF) | payer OTHER, SELFPAY ==
[2024-02-02 14:29] LABS: Vitamin D 25-OH Total 55.3 ng/mL (>30)
[2024-02-05 04:59] LABS: Alpha-Tocopherol 6.1 mg/L (5.7-19.9); Beta-Gamma Tocopherol <1.0 mg/L (<=4.3)
[2024-02-05 16:03] LABS: Vitamin A 36 mcg/dL (38-98)
[2024-02-06 00:04] LABS: Vitamin C 0.9 mg/dL (0.2-2.1)
[2024-02-06 16:13] LABS: Vitamin B1 33 nmol/L (8-30)
== END 2024-02-02 11:35 | disposition home or self-care (01) ==
LOC: HO.LAB 11:34
PROVIDERS: PCP Internal Medicine; Visit Provider Internal Medicine Gastroenterology
DX: E46 Unspecified protein-calorie malnutrition (principal)
CPT/HCPCS: 36415; 82180; 82306; 84425; 84446; 84590; 99212

== ENCOUNTER 2024-03-09 08:21 | Outpatient (REF) | payer OTHER, SELFPAY ==
[2024-03-09 11:01] LABS: Prostate Specific Antigen 1.73 ng/mL (<0.05-4.0)
== END 2024-03-09 08:22 | disposition home or self-care (01) ==
LOC: HO.HMGCLDS 08:21
PROVIDERS: PCP Internal Medicine; Visit Provider Urology
DX: Z12.5 Encounter for screening for malignant neoplasm of prostate (principal); N40.1 Benign prostatic hyperplasia with lower urinary tract symptoms
CPT/HCPCS: 36415; 84153

== ENCOUNTER 2024-03-15 07:29 | Outpatient (AMB) | payer OTHER, SELFPAY ==
[2024-03-15 07:33] VITALS: BP 122/78; PULSE 56; RESP 16; O2SAT 97; BMI 22.7
--- NOTE | 2024-03-15 07:33 | MHC.OFFVIS ---
Vital Signs 03/15/24 07:33 Height 6 ft Weight 167 lb 6 oz BMI 22.7 BP 122/78 Blood Pressure Location Lt brachial Position Sitting Respiration 16 Pulse 56 Pulse Source Pulse Oximeter Pulse Oximetry (%) 97 Oxygen Delivery Method Room Air Intake Visit Reasons: 3 mnts f/u - LVM w/add Intake Note: Pt presents for a 4 month follow up for facial neuralgia. Tools And Parts Attendant Required: No Allergies No Known Allergies [No Known Allergies*] Allergy (Verified 03/15/24 07:33) Medication List - Last Reconciled 03/15/24 by Anya Gibbons MD alcohol swabs (Alcohol Wipes) 1 pad topical TID amitriptyline 10 mg PO BEDTIME blood sugar diagnostic (FreeStyle Lite Strips) Check blood sugar as directed twice a day before meals blood-glucose meter (FreeStyle Lite Meter kit) Check blood sugar as directed before meals twice a day blood-glucose sensor (Dexcom G6 Sensor device) As directed change every 10 days blood-glucose transmitter (Dexcom G6 Transmitter device) As directed cholecalciferol (vitamin D3) 25 mcg PO DAILY flash glucose sensor (FreeStyle Roz 2 Sensor kit) As directed insulin lispro Infuse up to 34 units via insulin pump per day subcutaneously; insulin pump cart,auto,BT-cntr (Omnipod 5 G6 Intro Kit (Gen 5) subcutaneous cartridge with controller) As directed insulin pump cart,automated,BT (Omnipod 5 G6 Pods (Gen 5) subcutaneous cartridge) USE DIRECTED BY THE DOCTOR FOR SUBCUTANEOUS DELIVERY OF INSULIN. CHANGE EVERY 72 HOURS lancets (FreeStyle Lancets) Check blood sugar twice a day as directed before meals oujhdn-alnurqbl-stpdliy 36,000-114,000- 180,000 unit (Creon) caps PO lnyitr-tckqjezu-pqihvvi 6,000-19,000 -30,000 unit (Creon) 11.77614 caps PO TID lisinopril 10 mg PO DAILY pen needle, diabetic (BD Ultra-Fine Kim Pen Needle) As directed four times a day tamsulosin (Flomax) 0.4 mg PO BEDTIME thiamine HCl (vitamin B1) 300 mg (3 x 100 mg) PO DAILY vitamin A palmitate 10,000 units PO DAILY HPI Comments Details: 58y/o male comes here for f/u of tingling in the gum , tongue, inner cheek on the right side. He is sleeping better with amitriptyline but kate snot help with his facial discomfort. It started about 2-3 years ago . He had a right upper molar extraction- which could not be completed, he was referred to maxillofacial surgeon who completed the extraction.It started as infrequent episodes now he has daily episodes which can last the whole day . He feels it resolves at bedtimes. He also describes as numbing feeling. 1-2 times a week when he takes a nap he tends to bite his cheek .No difficulty speaking or swallowing . He denies pain. He describes it as pins and needles sensation and mild burning. He denies any shooting pain from ear down his cheek. He feels it in his tongue more after he eats but not sure eating or drinking triggers any episodes. Change in temperature or spicy food does not worsen.He denies frequent headaches. No head injury. He has h/o chronic pancreatitis due to alcohol. He quit 16 years ago. Now he has diabetes - on an insulin pump for past 2 mths . 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 Son No problems noted. Son No problems noted. 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 Current occupational exposures/hazards: No Cognitive needs: No Hearing needs: No Vision needs: No Physical Exam Vital Signs: Last Vital Signs Pulse 56 03/15/24 07:33 Resp 16 03/15/24 07:33 BP 122/78 03/15/24 07:33 Pulse Ox 97 03/15/24 07:33 Oxygen Delivery Method Room Air 03/15/24 07:33 BMI result Body Mass Index 22.7 Const General: cooperative, healthy appearing, comfortable and no acute distress Nutritional Appearance: average body habitus Orientation/consciousness: patient oriented x3 Neuro General: patient oriented x3, gait normal, tone normal, moves all extremities and no focal motor deficits Cognition (Neuro): normal cognition Gait exam (Neuro): Normal gait present Motor exam (neuro): 5/5 motor strength present throughout and Normal motor muscle tone present throughout Coordination: mwboqn-ph-cmtc test normal Assessment & Plan Assessment & Plan (1) Facial neuralgia: Comment: right Trigeminal neuralgia ( V2) likely triggered by the dental extraction, diabetes, malnutrition etc. Code(s): G51.8 - Other disorders of facial nerve Category: Medical Plan Continue amitriptyline 10 mg qhs I will rial him on carbamazepine XR 100mg bid MRI brain F/u court security officer and dentist . Orders: Orders MR head/brain wo con Today G51.8 - Other disorders of facial nerve Complete Blood Count Auto Diff Today G51.8 - Other disorders of facial nerve Comprehensive Met. Panel Today G51.8 - Other disorders of facial nerve Medications: New carbamazepine ER 100 mg PO BID 60 caps 6RF Coding Level of Care Code Est Pt Level 4 (72674) Diagnoses Facial neuralgia G51.8
== END 2024-03-15 07:55 | disposition home or self-care (01) ==
PROVIDERS: PCP Internal Medicine; Visit Provider Psychiatry & Neurology Neurology
DX: G51.8 Other disorders of facial nerve (principal)
CPT/HCPCS: 99214

== ENCOUNTER → 2024-03-15 07:29 | Outpatient (BNVA) | payer OTHER, SELFPAY | PROVIDERS: PCP Internal Medicine; Visit Provider Psychiatry & Neurology Neurology | DX: G51.8 Other disorders of facial nerve (principal) | CPT/HCPCS: 99212 ==

== ENCOUNTER 2024-03-17 10:52 | Outpatient (AMB) | payer OTHER, SELFPAY ==
--- NOTE | 2024-03-17 11:15 | MHC.AMDMED ---
Intake Intake Visit Reasons: DM Auto Dismantler Required: No Accompanied by: Self / Same As Patient Allergies No Known Allergies [No Known Allergies*] Allergy (Verified 03/15/24 07:33) HPI Comprehensive Diabetes Asmnt Most Recent Diabetes Results: No Data to Display 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 Son No problems noted. Son No problems noted. 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 The following topics were reviewed today: -auto mode verses manual mode ??? High Alert: 250 mg/dl ??? 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 Duvall to update prescription to 50 units a day via insulin pump Troubleshooting after starting new pod or inserting new insulin set: Occlusion, adhesive tape sensitivity, redness Check BG 2 hours after site change Safety information: Importance of a backup plan, for manual injections, proper prescriptions and emergency supplies ketone strips, and rules for testing for ketones Patient understands the basic concepts of pump therapy, how to give insulin for meals and snacks, how to troubleshoot for hyper and hypoglycemia. Setting verified by [facility], no changes to patient's pump settings at this visit Basal rate(s) (units/hour) : 12 AM to 12 AM 0.7 units / hr Bolus setting Insulin Carbohydrate Ratio (s) 12 AM to 12 AM 1:13 Correction Factor / Sensitivity Factor 12 AM to 12 AM 1:44 Active Insulin Time:? 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
== END 2024-03-17 11:17 | disposition home or self-care (01) ==
PROVIDERS: PCP Internal Medicine; Visit Provider Registered Nurse Diabetes Educator
DX: E13.9 Other specified diabetes mellitus without complications (principal); S36.209S Unspecified injury of unspecified part of pancreas, sequela

== ENCOUNTER → 2024-03-17 10:52 | Outpatient (BNVA) | payer OTHER, SELFPAY | PROVIDERS: PCP Internal Medicine; Visit Provider Registered Nurse Diabetes Educator | DX: E13.9 Other specified diabetes mellitus without complications (principal); S36.209S Unspecified injury of unspecified part of pancreas, sequela; X58.XXXS Exposure to other specified factors, sequela; Z96.41 Presence of insulin pump (external) (internal); Z46.81 Encounter for fitting and adjustment of insulin pump; Z79.4 Long term (current) use of insulin | CPT/HCPCS: 99211 ==

== ENCOUNTER 2024-03-19 14:24 | Outpatient (AMB) | payer OTHER, SELFPAY ==
[2024-03-19 14:35] VITALS: BP 128/86; PULSE 73; TEMP 36.6; O2SAT 97; BMI 22.9
--- NOTE | 2024-03-19 14:35 | MHC.OFFWIV ---
Intake Vital Signs 03/19/24 14:35 Height 6 ft Weight 168 lb 8 oz BMI 22.9 BP 128/86 Blood Pressure Location Rt brachial Position Sitting Pulse 73 Pulse Source Pulse Oximeter Temp 97.8 F Temp Source Oral Pulse Oximetry (%) 97 Oxygen Delivery Method Room Air Intake Visit Reasons: Sore throat Intake Note: Pt is here today for sore throat, pt states symptoms started 4-5 days ago Patient Tobacco Use Status: Former Tobacco user Allergies No Known Allergies [No Known Allergies*] Allergy (Verified 03/19/24 14:35) Do you need a note to return to daycare/school/sports/work: No HPI HPI Comments History of Present Illness Details Patient is a 58-year-old male complaining of a sore throat times 4-5 days, he also has a itchy dry cough. He denies any history of allergies and does not take an allergy pill daily. 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 Son No problems noted. Son No problems noted. 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 Current occupational exposures/hazards: No Cognitive needs: No Hearing needs: No Vision needs: No Review of Systems Const All systems reviewed & are unremarkable except as noted in HPI and below Physical Exam Vital Signs: Last Vital Signs Temp 97.8 F 03/19/24 14:35 Pulse 73 03/19/24 14:35 BP 128/86 03/19/24 14:35 Pulse Ox 97 03/19/24 14:35 Oxygen Delivery Method Room Air 03/19/24 14:35 BMI result Body Mass Index 22.9 Const General: cooperative, healthy appearing, comfortable and no acute distress Orientation/consciousness: patient oriented x3 Limitations: no limitations HEENT Head: Yes normal to inspection Ears: external ears normal General nose exam: Normal external nose present, Normal nares present and No nasal discharge present Face and sinus: Yes normal facial exam and Yes face symmetric Mouth: Normal oral and palatal mucosa present and moist mucous membranes Throat: Yes posterior oropharynx abnormal and Yes cobblestoning Eyes General: appearance normal, both eyes and all related structures Neck Neck: Yes normal visual inspection Resp Effort & Inspection: normal respiratory effort, able to speak in complete sentences, Actively coughing, no respiratory distress, not tachypneic, no tripod positioning and no use of accessory muscles Skin General skin exam: no rashes or lesions noted Neuro General: patient oriented x3 Extrem General: Yes normal to inspection and Yes no clubbing, cyanosis or edema Results AMB Rapid Strep AMB Rapid Strep Negative Last Edit by Peter Phan CMA on 03/19/24 14:55 Results Reviewed Results Reviewed: Laboratory Last Values Strep Scn Rapid Clinic Negative 03/19/24 14:52 Assessment & Plan Assessment & Plan (1) Seasonal allergies: Code(s): J30.2 - Other seasonal allergic rhinitis Plan: Recommended daily allergy pill as well as staying inside for the next few days to reduce symptoms. Plan see above Orders: Orders AMB Rapid Strep Screen Today Z13.9 - Encounter for screening, unspecified Coding Level of Care Code Est Pt Level 2 (41605) Diagnoses Seasonal allergies J30.2
== END 2024-03-19 15:22 | disposition home or self-care (01) ==
PROVIDERS: PCP Internal Medicine; Visit Provider Physician Assistant
DX: J30.2 Other seasonal allergic rhinitis (principal); J02.9 Acute pharyngitis, unspecified
CPT/HCPCS: 87880; 99212

== ENCOUNTER 2024-03-22 09:37 | Outpatient (AMB) | payer OTHER, SELFPAY ==
--- NOTE | 2024-03-22 09:55 | A.OFFVIS_ITS ---
Intake Visit Reasons: 6 month follow up/ PSA Intake Note: Patient presents today to for a follow-up on PSA Results: Meds- Tamsulosin Allergies to Antibiotic- No Known Allergies Blood Thinner- None Wood Flour Miller Required: No Accompanied by: Self / Same As Patient Allergies No Known Allergies [No Known Allergies*] Allergy (Verified 03/22/24 09:57) Medication List - Last Reconciled 03/22/24 by Darnell Heck MD alcohol swabs (Alcohol Wipes) 1 pad topical TID amitriptyline 10 mg PO BEDTIME amoxicillin-pot clavulanate 875-125 mg 1 tab PO BID blood sugar diagnostic (FreeStyle Lite Strips) Check blood sugar as directed twice a day before meals blood-glucose meter (FreeStyle Lite Meter kit) Check blood sugar as directed before meals twice a day blood-glucose sensor (Dexcom G6 Sensor device) As directed change every 10 days blood-glucose transmitter (Dexcom G6 Transmitter device) As directed carbamazepine ER 100 mg PO BID cholecalciferol (vitamin D3) 25 mcg PO DAILY flash glucose sensor (FreeStyle Roz 2 Sensor kit) As directed insulin lispro Infuse up to 50 units via insulin pump per day subcutaneously; insulin pump cart,auto,BT-cntr (Omnipod 5 G6 Intro Kit (Gen 5) subcutaneous cartridge with controller) As directed insulin pump cart,automated,BT (Omnipod 5 G6 Pods (Gen 5) subcutaneous cartridge) USE DIRECTED BY THE DOCTOR FOR SUBCUTANEOUS DELIVERY OF INSULIN. CHANGE EVERY 72 HOURS lancets (FreeStyle Lancets) Check blood sugar twice a day as directed before meals fvilec-oxxubhla-ookfurx 36,000-114,000- 180,000 unit (Creon) caps PO dlgykf-mzxanpjt-mucvlko 6,000-19,000 -30,000 unit (Creon) 11.21072 caps PO TID lisinopril 10 mg PO DAILY pen needle, diabetic (BD Ultra-Fine Kim Pen Needle) As directed four times a day tamsulosin (Flomax) 0.4 mg PO BEDTIME thiamine HCl (vitamin B1) 300 mg (3 x 100 mg) PO DAILY vitamin A palmitate 10,000 units PO DAILY HPI Comments Details: 03/22/2024--Ishmael is a 58-year-old male who is followed due to BPH, history of chronic testicular pain and prostatitis. He is on tamsulosin 0.4 mg daily. Comorbidity insulin-dependent diabetes, nicotine dependence and neuralgia. I have reviewed recent PSA, 03/09/2024--PSA--1.73. Urinalysis--leukocytes negative blood negative. The patient states for about 6 weeks he is noted that his semen is brown. He denies pain with ejaculation. He has had some discomfort, but would not describe as pain, in the left testicle about the same time. Denies any swelling of the scrotum or testicle. I will continue tamsulosin. Empirically treat with Augmentin 875 mL twice a day. 09/22/23--- Ishmael is a 57-year-old male who is here for FU evaluation for BPH, testicular pain and LUTS of dysuria Past Medical history insulin dependent Diabetes secondary to pancreatitis, chronic pancreatitis, Neuralgia post Herpes, Surgical history includes but is not limited to cervical fracture repair, 2000. Last seen for initial evaluation 07/16/23 - states LUTS improved and testicular pain resolved. Completed tamsulosin and did not have a refill. history of nicotine use >41 years and current cigarette use. I have discussed avoiding dietary bladder irritants, including to cut back on caffeine usage. (previously stated drinks 15 cups of coffee a day).?UA?leukocytes: negative; blood: negative; Imaging/Labs/Results- Scrotum US results from 07/10/2023 revealed bilateral epididymal cysts. Small right hydrocele. 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 Son No problems noted. Son No problems noted. 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 Current occupational exposures/hazards: No Cognitive needs: No Hearing needs: No Vision needs: No Review of Systems Const All systems reviewed & are unremarkable except as noted in HPI and below Reports no additional complaints Eyes Reports no additional complaints ENT Reports no additional complaints Card Reports no additional complaints Resp Reports no additional complaints GI Reports no additional complaints Reports as per HPI Musc Reports no additional complaints Skin/Breast Reports system reviewed and no additional complaints, except as documented Neuro Reports no additional complaints Psych Reports no additional complaints Endo Reports no additional complaints Duncan/Lymph Reports no additional complaints Aller/Immun Reports no additional complaints Results AMB Urinalysis, Automated UA Leukoctes 0 Ez/uL Last Edit by ASHA Lara on 03/22/24 10:09 UA Nitrite Negative Last Edit by ASHA Lara on 03/22/24 10:09 UA Urobilinogen 0.2 mg/dL Last Edit by ASHA Lara on 03/22/24 10:0 9 UA Protein 0 mg/dL Last Edit by ASHA Lara on 03/22/24 10:09 UA pH 5.5 Last Edit by ASHA Lara on 03/22/24 10:09 UA Blood 0 Ra/uL Last Edit by ASHA Lara on 03/22/24 10:09 UA Specific Kirby 1.015 Last Edit by ASHA Lara on 03/22/24 10: 09 UA Ketone Negative Last Edit by ASHA Lara on 03/22/24 10:09 UA Bilirubin 0 mg/dL Last Edit by ASHA Lara on 03/22/24 10:09 UA Glucose 0 mg/dL Last Edit by ASHA Lara on 03/22/24 10:09 Results Reviewed Results Reviewed: Laboratory Last Values Urine pH (Auto) 5.5 03/22/24 09:57 Specific Kirby (Auto) 1.015 03/22/24 09:57 Urine Protein (Auto) 0 mg/dL 03/22/24 09:57 Glucose (UA)(Auto) 0 mg/dL 03/22/24 09:57 Urine Ketones (Auto) Negative 03/22/24 09:57 Urine Blood (Auto) 0 Ra/uL 03/22/24 09:57 Urine Nitrite (Auto) Negative 03/22/24 09:57 Urine Bilirubin (Auto) 0 mg/dL 03/22/24 09:57 Urine Urobilinogen (Auto) 0.2 mg/dL 03/22/24 09:57 Leukocyte Esterase (Auto) 0 Ez/uL 03/22/24 09:57 Date of Service: 07/10/23 EXAMINATION: US SCROTUM CLINICAL INFORMATION: Scrotal pain. COMPARISON: None available. FINDINGS: RIGHT: Right testicle measures 4.2 x 2.7 x 2.6 cm, volume 15.4 mL. No focal testicular parenchymal lesions are visualized. Spectral Doppler analysis of the arterial and venous flow is normal in the right testis. Right epididymal head is normal in size. Right epididymal head cysts measures 7 x 6 x 6 mm and 6 x 5 x 6 mm. Small right hydrocele. Right epididymal Doppler flow is normal. LEFT: Left testicle measures 4.4 x 2.1 x 3.0 cm, volume 14.5 mL. No focal testicular parenchymal lesions are visualized. Spectral Doppler analysis of the arterial and venous flow is normal in the left testis. Left epididymal head is normal in size. Left epididymal head cyst 5 x 3 x 3 mm. No left hydrocele or varicocele is seen. Left epididymal Doppler flow is normal. IMPRESSION: Bilateral epididymal cysts. Small right hydrocele. Assessment & Plan Assessment & Plan (1) Benign prostatic hyperplasia: Code(s): N40.0 - Benign prostatic hyperplasia without lower urinary tract symptoms Category: Medical (2) Urinary frequency: Code(s): R35.0 - Frequency of micturition Category: Medical (3) Nicotine dependence: Code(s): F17.200 - Nicotine dependence, unspecified, uncomplicated Category: Medical (4) Screening PSA (prostate specific antigen): Code(s): Z12.5 - Encounter for screening for malignant neoplasm of prostate Category: Medical (5) Hematospermia: Code(s): R36.1 - Hematospermia Category: Medical Plan Continue Flomax 0.4 mg Behavioral modification, avoid dietary bladder irritants, monitor coffee intake. Augmentin 875 mg twice a day for 10 days. Follow-up in 1 year, PSA prior Orders: Orders AMB Urinalysis Automated Today Z13.9 - Encounter for screening, unspecified Prostate Specific Antigen 03/09/24 N40.1 - Benign prostatic hyperplasia with lower urinary tract symptoms PSA,Total (Free>4and<10) 10 Months Z12.5 - Encounter for screening for malignant neoplasm of prostate Medications: New amoxicillin-pot clavulanate 875-125 mg 1 tab PO BID 14 tabs 0RF amoxicillin-pot clavulanate 875-125 mg 1 tab PO BID 20 tabs 0RF Coding Level of Care Code Est Pt Level 4 (56404) Diagnoses Benign prostatic hyperplasia N40.0 Urinary frequency R35.0 Nicotine dependence F17.200 Screening PSA (prostate specific antigen) Z12.5 Hematospermia R36.1
== END 2024-03-22 10:31 | disposition home or self-care (01) ==
PROVIDERS: PCP Internal Medicine; Visit Provider Urology
DX: N40.0 Benign prostatic hyperplasia without lower urinary tract symptoms (principal); R35.0 Frequency of micturition; F17.200 Nicotine dependence, unspecified, uncomplicated; Z12.5 Encounter for screening for malignant neoplasm of prostate; R36.1 Hematospermia; Z13.9 Encounter for screening, unspecified
CPT/HCPCS: 99214

== ENCOUNTER → 2024-03-22 09:37 | Outpatient (BNVA) | payer OTHER, SELFPAY | PROVIDERS: PCP Internal Medicine; Visit Provider Urology | DX: N20.0 Calculus of kidney (principal); R35.0 Frequency of micturition; R36.1 Hematospermia; Z12.5 Encounter for screening for malignant neoplasm of prostate; Z87.891 Personal history of nicotine dependence | CPT/HCPCS: 81003; 99212 ==

== ENCOUNTER 2024-05-04 08:09 | Outpatient (AMB) | payer OTHER, SELFPAY ==
[2024-05-04 08:43] VITALS: BP 102/70; PULSE 53; BMI 22.6
--- NOTE | 2024-05-04 08:43 | A.OFFVIS_ITS ---
Vital Signs 05/04/24 08:43 Height 6 ft Weight 166 lb 14.239 oz BMI 22.6 BP 102/70 Blood Pressure Location Rt brachial Position Sitting Pulse 53 Pulse Source Pulse Oximeter Intake Visit Reasons: f/u pancreolytic diabetes/CONFIRMED Intake Note: New Patient presents today to establish treatment for Type 2 Diabetes Mellitus: Last diabetic eye exam was on: 06/2023 Last Podiatry Exam was on: Doesn't have one. HbA1c: 6.4% Random Glucose- 122 mg/dL Population Geneticist Required: No Accompanied by: Self / Same As Patient Allergies No Known Allergies [No Known Allergies*] Allergy (Verified 05/04/24 08:48) HPI Comments Details: This is a 58-year-old male with a past medical history of diabetes due to pancreatic injury, hypertension, chronic pancreatitis and anxiety with depression presenting for diabetic follow-up. He was last seen by Dr. Duvall in January 2024. He is working in [employer]. Micro and macrovascular complications: No known. Currently on Omnipod 5 pump with Dexcom G6. Basal rate(s) (units/hour) : 12 AM to 12 AM 0.7 units / hr Bolus setting Insulin Carbohydrate Ratio (s) 12 AM to 12 AM 1:13 Correction Factor / Sensitivity Factor 12 AM to 12 AM 1:44 Active Insulin Time: 4 hours Target(s): 12 AM to 12 AM 110 mg/dL Correction threshold: 12 AM to 12 AM 120 mg/dL Total daily dose is 17.2 units with 51 % basal and 49% bolus. Auto mode is in use 100% of the time Reviewed CGM summary during the past 10 days. Glucose within range 87% of the time. 1% of the time low readings, 10% of the time high reading 181-250 and 2% of the time very high over 250. Average glucose 136. Hemoglobin A1c 6.4%. Pattern shows slight increase in glucose after dinner time. He does not usually alert his pump 15 minutes before meal time. He has been doing it when he starts to eat or right before. He denies numbness or tingling in his toes. Hypoglycemia symptoms: Mild symptoms. He treats with skittles and monitors to make sure blood glucose increases. He had 1 low in the past 2 weeks. He says this is because he did not eat as much as he anticipated at mealtime. Hyperglycemia symptoms: None Eye exam up-to-date: No retinopathy. [facility] 07/11/2023 The patient's heart rate today is 53. I rechecked manually. No chest pain, shortness of breath palpitations, dizziness, syncope or weakness. He is not on a beta-juan manuel. Heart rate recorded 03/19/2024 was 73. ROS: Constitutional: No unexplained weight loss, fever, chills, fatigue or night sweats. Eyes: No vision changes, blurry vision, double vision Respiratory: No shortness of breath, cough or sputum production. Cardiovascular: No chest pain, chest pressure or chest discomfort. No palpitations or pedal edema. Neurologic: No headache, dizziness, syncope, unilateral weakness, ataxia, numbness or tingling in the extremities. Physical exam: Constitutional: Alert, in no distress. Head: Normocephalic. Eyes: Pupils are equal, round and reactive to light. Extraocular muscles intact. Neck: Supple, Full range of motion. No lymphadenopathy. Respiratory: Clear to auscultation. Cardiovascular: Bradycardic, regular rhythm, no murmur Neurologic: No focal neurological deficits. Extremities: Warm and well perfused. No clubbing, cyanosis or edema. Patient has mild decreased vibratory sensation of both feet. Sensation intact to monofilament bilaterally. 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 Son No problems noted. Son No problems noted. 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 Current occupational exposures/hazards: No Cognitive needs: No Hearing needs: No Vision needs: No Physical Exam Vital Signs: Last Vital Signs Pulse 53 05/04/24 08:43 BP 102/70 05/04/24 08:43 BMI result Body Mass Index 22.6 Results AMB Hemoglobin A1c AMB Hemoglobin A1c 6.4 % Last Edit by ASHA Castano on 05/04/24 09:08 Results Reviewed Results Reviewed: Laboratory Last Values Glucose (Clinic) 122 mg/dL (60-115) H 05/04/24 08:54 Hgb A1c (Clinic) 6.4 % (4.0-6.0) H 05/04/24 08:57 Assessment & Plan Assessment & Plan (1) 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 Continue current regimen. Referred for eye exam which is due in June 2024. Patient will make an effort to alert pump 15 minutes prior to meals to see if this cubs some of his hyperglycemia after dinner. Order diabetic labs to be done prior to next appointment with Dr. Duvall. (2) Essential hypertension: Code(s): I10 - Essential (primary) hypertension Category: Medical Plan: Soft BP today, but patient denies symptoms. (3) Bradycardia: Code(s): R00.1 - Bradycardia, unspecified Category: Medical Plan: Patient asymptomatic. He is not on medications known to cause bradycardia. Reviewed signs and symptoms of bradycardia, and patient over to the ER if he develops this. I will message his PCP to ensure follow-up. I asked the patient to contact his primary care as well. Orders: Orders AMB Hemoglobin A1c Today E13.9 - Other specified diabetes mellitus without complications, S36.209S - Unspecified injury of unspecified part of pancreas, sequela, Z13.9 - Encounter for screening, unspecified Hemoglobin A1c 3 Months E13.9 - Other specified diabetes mellitus without complications, I10 - Essential (primary) hypertension, S36.209S - Unspecified injury of unspecified part of pancreas, sequela Lipid Panel 3 Months E13.9 - Other specified diabetes mellitus without complications, I10 - Essential (primary) hypertension, S36.209S - Unspecified injury of unspecified part of pancreas, sequela Basic Metabolic Panel 3 Months E13.9 - Other specified diabetes mellitus without complications, I10 - Essential (primary) hypertension, S36.209S - Unspecified injury of unspecified part of pancreas, sequela Microalbumin, Random (w Creat) 3 Months E13.9 - Other specified diabetes mellitus without complications, I10 - Essential (primary) hypertension, S36.209S - Unspecified injury of unspecified part of pancreas, sequela Referrals Ophthalmology Referral E13.9 - Other specified diabetes mellitus without complications, S36.209S - Unspecified injury of unspecified part of pancreas, sequela Coding Level of Care Code Est Pt Level 5 (27515) Complex EM visit Add On G2211 Diagnoses 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
[2024-05-04 08:58] LABS: Glucose, Whole Blood 122 mg/dL (60-115)
== END 2024-05-04 09:24 | disposition home or self-care (01) ==
PROVIDERS: PCP Internal Medicine; Visit Provider Physician Assistant Medical
DX: E13.9 Other specified diabetes mellitus without complications (principal); S36.209S Unspecified injury of unspecified part of pancreas, sequela; I10 Essential (primary) hypertension; R00.1 Bradycardia, unspecified; Z13.9 Encounter for screening, unspecified
CPT/HCPCS: 99215; G2211

== ENCOUNTER → 2024-05-04 08:09 | Outpatient (BNVA) | payer OTHER, SELFPAY | PROVIDERS: PCP Internal Medicine; Visit Provider Physician Assistant Medical | DX: E13.9 Other specified diabetes mellitus without complications (principal); S36.209S Unspecified injury of unspecified part of pancreas, sequela; I10 Essential (primary) hypertension; R00.1 Bradycardia, unspecified | CPT/HCPCS: 82947; 83036; 99212 ==

== ENCOUNTER → 2024-05-10 07:53 | Outpatient (REF) | payer OTHER, SELFPAY ==
--- NOTE | 2024-05-10 07:59 | ECG_ITS ---
Test Reason : BRADYCARDIA Blood Pressure : / mmHG Vent. Rate : 048 BPM Atrial Rate : 048 BPM P-R Int : 164 ms QRS Dur : 156 ms QT Int : 480 ms P-R-T Axes : 072 048 045 degrees QTc Int : 428 ms Sinus bradycardia Right bundle branch block Abnormal ECG No previous ECGs available Referred By: Karely Velásquez Electronically Signed By:Michael Pinon
== END ==
LOC: HO.CARD 07:53
PROVIDERS: PCP Internal Medicine; Visit Provider Internal Medicine
DX: R00.1 Bradycardia, unspecified (principal)
CPT/HCPCS: 93005

== ENCOUNTER → 2024-05-10 07:59 | Outpatient (BNV) | payer OTHER, SELFPAY | PROVIDERS: PCP Internal Medicine; Visit Provider Internal Medicine Cardiovascular Disease | DX: R00.1 Bradycardia, unspecified (principal) | CPT/HCPCS: 93010 ==

== ENCOUNTER 2024-05-31 08:42 | Outpatient (AMB) | payer OTHER, SELFPAY ==
--- NOTE | 2024-05-31 08:44 | MHC.OFFWIV ---
Intake Vital Signs 05/31/24 08:45 Height 6 ft Weight 166 lb BMI 22.5 BP 120/80 Blood Pressure Location Rt brachial Position Sitting Pulse 65 Pulse Source Pulse Oximeter Temp 98.1 F Temp Source Oral Pulse Oximetry (%) 98 Oxygen Delivery Method Room Air Intake Visit Reasons: EP Bilateral eye swelling Intake Note: pt c/o bilateral eye swelling. Started Friday Patient Tobacco Use Status: Former Tobacco user Allergies No Known Allergies [No Known Allergies*] Allergy (Verified 05/31/24 08:49) Do you need a note to return to daycare/school/sports/work: No HPI HPI Comments History of Present Illness Details Patient is a 58-year-old male complaining of bilateral eye swelling x3 days. He states this happened to him before and his doctors just treated it but no one was able to figure out what triggered it. He states his eyes are very itchy but he denies any blurriness or changes in his vision. He states he has got a little bit of watery clear discharge but his eyes are not crusted shut when he wakes up. He denies any fevers. He denies any use of new lotions, creams, shampoos, foods or medications. He states he did use a little bit Benadryl cream on his eyelids because they were so itchy. 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 Son No problems noted. Son No problems noted. 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 Current occupational exposures/hazards: No Cognitive needs: No Hearing needs: No Vision needs: No Review of Systems Const All systems reviewed & are unremarkable except as noted in HPI and below Physical Exam Vital Signs: Last Vital Signs Temp 98.1 F 05/31/24 08:45 Pulse 65 05/31/24 08:45 BP 120/80 05/31/24 08:45 Pulse Ox 98 05/31/24 08:45 Oxygen Delivery Method Room Air 05/31/24 08:45 BMI result Body Mass Index 22.5 Const General: cooperative, healthy appearing, comfortable, no acute distress and well developed Orientation/consciousness: patient oriented x3 Limitations: no limitations HEENT Head: Yes normal to inspection Eyes General: appearance normal, both eyes and all related structures Visual Willett: normal visual willett by confrontation Alignment and Position: alignment normal and position normal Periorbital: periorbital findings abnormal bilateral periorbital swelling and periorbital erythema; no tenderness, no ecchymosis and no crepitus Eyelids: Yes eyelid abnormality (swelling) Conjunctivae: conjunctivae normal Sclerae: sclerae normal Corneas: corneas normal Pupils: Equal, round and reactive pupils present EOM: EOMs intact bilaterally Neck Neck: Yes normal visual inspection and Yes full ROM Resp Effort & Inspection: normal respiratory effort and able to speak in complete sentences Neuro General: patient oriented x3 Cranial nerves: Yes Equal, round and reactive pupils present Extrem General: Yes normal to inspection Assessment & Plan Assessment & Plan (1) Allergic eye reaction: Code(s): H57.9 - Unspecified disorder of eye and adnexa Plan: Educated patient on not using a steroid cream on his eyelids as the skin is much thinner than the rest of his body and it could sleep through into the eye balls. Recommended him using a cool cloth instead. Also I sent hydroxyzine to his pharmacy for the itching as well as prednisone to take down the swelling. Gave him red flag warning signs and when to go to the emergency department or call his nuclear engineering technician. Plan See above Medications: New prednisone 40 mg (2 x 20 mg) PO DAILY 10 tabs 0RF hydroxyzine HCl 10 mg PO Q6-8H PRN 20 tabs 0RF itching Coding Level of Care Code Est Pt Level 3 (22820) Diagnoses Allergic eye reaction H57.9
[2024-05-31 08:45] VITALS: BP 120/80; PULSE 65; TEMP 36.7; O2SAT 98; BMI 22.5
== END 2024-05-31 09:30 | disposition home or self-care (01) ==
PROVIDERS: PCP Internal Medicine; Visit Provider Physician Assistant
DX: H57.9 Unspecified disorder of eye and adnexa (principal)
CPT/HCPCS: 99213

== ENCOUNTER 2024-06-05 11:47 | Outpatient (AMB) | payer OTHER, SELFPAY ==
[2024-06-05 11:55] VITALS: BP 122/78; PULSE 66; TEMP 36.7; O2SAT 98; BMI 22.5
--- NOTE | 2024-06-05 11:55 | AM.OFFWIN_ITS ---
Intake Vital Signs 06/05/24 11:55 Height 6 ft Weight 166 lb BMI 22.5 BP 122/78 Blood Pressure Location Rt brachial Position Sitting Pulse 66 Pulse Source Pulse Oximeter Temp 98.0 F Temp Source Temporal Artery Scan Pulse Oximetry (%) 98 Intake Visit Reasons: EP eye concern/still not better Intake Note: pt is here for eye concern, redness and irritation not feeling better Patient Tobacco Use Status: Former Tobacco user Allergies No Known Allergies [No Known Allergies*] Allergy (Verified 06/05/24 11:57) Do you need a note to return to daycare/school/sports/work: No HPI HPI Comments History of Present Illness Details 58-year-old male returns for eyelid swel ling. Patient was seen evaluated at the walk-in on the for tendons periorbital edema itchiness and high redness. This happened 1 other time in unclear the etiology. He is put on prednisone and hydroxyzine. Swelling has significantly reduced last dose of prednisone was Friday however patient had rebound itchiness and swelling. Did see his eye doctor and received eye examination and was believed to be related to an allergic reaction. 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 Son No problems noted. Son No problems noted. 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 Current occupational exposures/hazards: No Cognitive needs: No Hearing needs: No Vision needs: No Physical Exam Vital Signs: Last Vital Signs Temp 98.0 F 06/05/24 11:55 Pulse 66 06/05/24 11:55 BP 122/78 06/05/24 11:55 Pulse Ox 98 06/05/24 11:55 BMI result Body Mass Index 22.5 Const General: cooperative, healthy appearing, no acute distress and alert Orientation/consciousness: patient oriented x3 Limitations: no limitations HEENT Head: Yes normal to inspection Ears: hearing grossly normal bilaterally General nose exam: Normal external nose present Eyes Periorbital: periorbital findings abnormal (Swelling) bilateral Conjunctivae: conjunctival abnormal (redness) bilateral Resp Effort & Inspection: normal respiratory effort and able to speak in complete sentences Cardio Rate: regular rate Skin General skin exam: no rashes or lesions noted Neuro General: patient oriented x3 Extrem General: Yes normal to inspection Assessment & Plan Assessment & Plan (1) Allergic eye reaction: Code(s): H57.9 - Unspecified disorder of eye and adnexa Plan: Likely suffering for rebound post discontinuation of steroid therapy. Given patient recently had eye exam low suspicion for acute eye pathology. Patient is a diabetic so this concern with continuation of steroid therapy our patient's blood sugars are well controlled and patient is on a meter with a insulin pump. Will continue out steroid as if a taper was initially prescribed. Additional 7 days of therapy tapering down from 40 mg. Will also discontinue hydroxyzine and start cetirizine with flexibility to increase dosing given intense pruritus. Plan -continue steroid therapy as taper -high-dose cetirizine if needed starting at 10 mg and titrating up to 30 mg for short duration Medications: New prednisone see taper instructions 40mg x 1 day, 30 mg x 2 days, 20 mg x 2 days, 10 mg x 2 days 10 mg PO DIRECTED 18 tabs 0RF cetirizine 10mg x 3 days, no improvement 20 mg x 3 days, no improvement 30 mg x 3 days. 10 mg PO DAILY PRN 20 tabs 0RF allergy symptoms Discontinued hydroxyzine HCl Discontinued Reason: Doctor's Order 10 mg PO Q6-8H PRN 20 tabs 0RF itching Coding Level of Care Code Est Pt Level 3 (74067) Diagnoses Allergic eye reaction H57.9
== END 2024-06-05 12:46 | disposition home or self-care (01) ==
PROVIDERS: PCP Internal Medicine; Visit Provider Physician Assistant
DX: H57.9 Unspecified disorder of eye and adnexa (principal)
CPT/HCPCS: 99051; 99213

== ENCOUNTER 2024-06-07 06:52 | Outpatient (REF) | payer OTHER, SELFPAY ==
--- NOTE | ~2024-06-07 | MR_ITS ---
EXAMINATION: MR BRAIN WITHOUT CONTRAST CLINICAL INFORMATION: Possible nerve damage following tooth extraction, facial neuralgia COMPARISON: None. TECHNIQUE: MRI of the brain was obtained using routine sequences without contrast. FINDINGS: No acute infarct. No acute intracranial hemorrhage or extra-axial fluid collection. The ventricles and sulci are normal in size and configuration without significant volume loss or hydrocephalus. Single punctate T2 FLAIR hyperintense focus on the right frontal deep white matter of no clinical significance. No mass lesion, mass effect, or herniation pattern. Normal intracranial arterial and dural venous sinus flow voids. Normal appearance of the midline structures. The orbits are grossly unremarkable. Bilateral mastoid effusions. Incidental small Tornwaldt cyst. Retention cysts in the left maxillary sinus alveolar recess. Normal marrow signal. Right maxillary molar extraction sites. MR/MR head/brain wo con IMPRESSION: Unremarkable brain MRI. Right maxillary molar extraction sites. Electronically signed by: Neida Ulloa MD 06/23/2024 04:44 PM EDT
== END 2024-06-07 06:53 | disposition home or self-care (01) ==
LOC: HO.MRI 06:52
PROVIDERS: PCP Internal Medicine; Visit Provider Psychiatry & Neurology Neurology
DX: G51.8 Other disorders of facial nerve (principal)
CPT/HCPCS: 70551

== ENCOUNTER 2024-07-28 06:02 | Outpatient (REF) | payer OTHER, SELFPAY ==
[2024-07-28 10:34] LABS: Estimated Average Glucose 134 mg/dL; Hemoglobin A1C 144.3309 umol/L; Hemoglobin A1c % 6.3 % (<6.0); Total Hemoglobin (HGBA1C) 3172.9001 umol/L
[2024-07-28 10:57] LABS: Anion Gap 12 (12-20); Blood Urea Nitrogen 12 mg/dL (9-16); Calcium 9.2 mg/dL (8.4-10.2); Carbon Dioxide 25 mmol/L (22-29); Chloride 107 mmol/L (96-108); Cholesterol 141 mg/dL (<200); Estimated Glomerular Filt Rate > 60; Glucose Random 99 mg/dL (60-115); HDL Cholesterol 43 mg/dL (>40); LDL Cholesterol Calculated 88 mg/dL (<100); Potassium 4.1 mmol/L (3.3-5.1); Sodium 140 mmol/L (135-145); Triglycerides 51 mg/dL (<150)
[2024-07-28 11:30] LABS: Creatinine Urine 98.03 mg/dL; Microalbum/Creatinine Ratio Ur 6.1 ug/mg cr (<30)
== END 2024-07-28 06:03 | disposition home or self-care (01) ==
LOC: HO.HMGCLDS 06:02
PROVIDERS: PCP Internal Medicine; Visit Provider Physician Assistant Medical
DX: I10 Essential (primary) hypertension (principal); E13.9 Other specified diabetes mellitus without complications; S36.209S Unspecified injury of unspecified part of pancreas, sequela
CPT/HCPCS: 36415; 80048; 80061; 82043; 82570; 83036; 96127

== ENCOUNTER 2024-07-28 10:46 | Outpatient (AMB) | payer OTHER, SELFPAY ==
--- NOTE | 2024-07-28 10:56 | A.OFFPC_ITS ---
Vital Signs 07/28/24 10:58 Height 6 ft Weight 170 lb 6 oz BMI 23.1 BP 132/72 Blood Pressure Location Rt brachial Position Sitting Pulse 78 Pulse Source Pulse Oximeter Pulse Oximetry (%) 97 Oxygen Delivery Method Room Air Intake Visit Reasons: Annual PE Intake Note: Patient is here today for a physical. Last colonoscopy 09/18/17. Pt decline flu shot today. 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 per policy Accompanied by: Self / Same As Patient Allergies No Known Allergies [No Known Allergies*] Allergy (Verified 08/02/24 02:08) Medication List - Last Reconciled 08/02/24 by Karely Velásquez MD alcohol swabs (Alcohol Wipes) 1 pad topical TID amitriptyline 10 mg PO BEDTIME blood sugar diagnostic (FreeStyle Lite Strips) Check blood sugar as directed twice a day before meals blood-glucose meter (FreeStyle Lite Meter kit) Check blood sugar as directed before meals twice a day blood-glucose sensor (Dexcom G6 Sensor device) USE 1 SENSOR DIRECTED, CHANGE EVERY 10 DAYS blood-glucose transmitter (Dexcom G6 Transmitter device) As directed carbamazepine ER 100 mg PO BID cetirizine 10 mg PO DAILY PRN cholecalciferol (vitamin D3) 50 mcg PO DAILY flash glucose sensor (FreeStyle Roz 2 Sensor kit) As directed insulin lispro Infuse up to 50 units via insulin pump per day subcutaneously; insulin pump cart,auto,BT-cntr (Omnipod 5 G6 Intro Kit (Gen 5) subcutaneous cartridge with controller) As directed insulin pump cart,automated,BT (Omnipod 5 G6 Pods (Gen 5) subcutaneous cartri dge) USE DIRECTED BY DOCTOR FOR SUBCUTANEOUS DELIVERY OF INSULIN. CHANGE EVERY 72 HOURS. lancets (FreeStyle Lancets) Check blood sugar twice a day as directed before meals [id number] 36,000-114,000- 180,000 unit (Creon) caps PO lisinopril 10 mg PO DAILY pen needle, diabetic (BD Ultra-Fine Kim Pen Needle) As directed four times a day prednisone 10 mg PO DIRECTED tamsulosin (Flomax) 0.4 mg PO BEDTIME thiamine HCl (vitamin B1) 300 mg (3 x 100 mg) PO DAILY vitamin A 1 cap PO DAILY Tobacco use date assessed: 07/28/24 Dental Screening Dental Screen Date: 07/28/24 Did you have a dental visit in the last 12 months?: Yes Did you have a dental problem in the last 6 months where you did not have access to dental care?: No Was dental information given to patient?: Patient has dentist HPI Annual PE HPI Details 58-year-old male with pancreatitis gualberto brady diabetes being treated with Omnipod 5 pump with excellent glycemic control and no known microvascular or macrovascular complication with less hypoglycemia, has seasonal allergies, history of bradycardia, benign prostatic hyperplasia, hypertension, here today for physical exam. He has been feeling well with present treatment, no complaints at present time. Had a normal colonoscopy done by Dr. Vences in 2016, repeat due again in 2026. 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 Son No problems noted. Son No problems noted. 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 1. Little interest or pleasure in doing things: not at all 2. Feeling down, depressed, or hopeless: not at all 3. Trouble falling or staying asleep, or sleeping too much: not at all 4. Feeling tired or having little energy: nearly every day 5. Poor appetite or overeating: not at all 6. Feeling bad about yourself - or that you are a failure or have let yourself or your family down: not at all 7. Trouble concentrating on things, such as reading the newspaper or watching television: nearly every day 8. Moving or speaking so slowly that other people could have noticed. Or the opposite - being so fidgety or restless that you have been moving around a lot more than usual: not at all 9. Thoughts that you would be better off or of hurting yourself in some way: not at all Total score: 6 Depression Screening Interpretation: Negative Depression Screening Done: Yes [id number] - PHQ-9 Billing: Yes Source: Developed by Drs. Samy Rubio, Fallon Connell, Thang Davis and colleagues, with an educational freya from [employer]. Thrive Questionnaire Date Thrive assessed: 07/28/24 I am a: Patient What is your living situation today?: I have a steady place to live Within the past 12 months, did the food you bought not last and you didn't have the money to get more?: Never true Within the past 12 months, did you worry whether your food would run out before you got money to buy more?: Never true Do you have trouble paying for medicines?: No Do you have trouble getting transportation to medical appointments?: No Do you have trouble paying your heating and electricity bill?: No Do you have trouble taking care of your child, family member or friend?: No Do you have trouble with day-to-day activities such as bathing, preparing meals, shopping, managing finances, etc.?: No Are you interested in more education?: No Please select the resources that you would like help with: None Currently or been in a relationship where the following occur: No concerns reported THRIVE Score: 0 AUDIT C Alcohol Use Questionnaire (AUDIT-C) 1. How often do you have a drink containing alcohol?: Never 3. How often do you have six or more drinks on one occasion?: Never Total Score: 0 CHELSEA-7 AMB Questionnaire CHELSEA-7 Date CHELSEA - 7 assessed: 07/28/24 Feeling nervous, anxious, or on edge: 0 = Not at all Not being able to stop or control worryin = Not at all Worrying too much about different things: 1 = Several days Trouble relaxin = Nearly every day Being so restless that it is hard to sit still: 1 = Several days Becoming easily annoyed or irritable: 1 = Several days Feeling afraid as if something awful might happen: 0 = Not at all Total CHELSEA-7 score (0-4 normal; 5-9 mild; 10-14 moderate; 15-21 severe): 6 Source: Developed by Drs. Samy Rubio, Fallon Connell, Thang Davis and colleagues, with an educational freya from [employer]. CHELSEA-7 Assessment Billing CHELSEA-7 Assessment Tool: CHELSEA-7 Assessment 45242 Review of Systems Const Denies fatigue, Denies fever(s), Denies headache(s) and Denies weakness Eyes Details: goes to eye and [facility] in [facility] with eye exam , per pt Denies change in vision ENT Denies dizziness, Denies headache(s), Denies nasal congestion, Denies nasal discharge and Denies sore throat Card Denies chest pain, Denies lightheadedness, Denies palpitations and Denies dyspnea Resp Denies chest congestion, Denies cough, Denies dyspnea and Denies wheezing GI Denies abdominal pain, Denies change in bowel habits and Denies heartburn Reports as per HPI Musc Reports no additional complaints Skin/Breast Denies lesions and Denies rash Neuro Denies dizziness, Denies headache(s) and Denies weakness Psych Reports as per HPI Endo Denies fatigue, Denies polydipsia and Denies palpitations Duncan/Lymph Denies easy bruising Aller/Immun Denies seasonal rhinorrhea and Denies wheezing Physical exam (Primary Care) Vital Signs: Last Vital Signs Pulse 78 07/28/24 10:58 BP 132/72 07/28/24 10:58 Pulse Ox 97 07/28/24 10:58 Oxygen Delivery Method Room Air 07/28/24 10:58 BMI result Body Mass Index 23.1 Tobacco/Smoking Status: Tobacco use Status Tobacco use date assessed 07/28/24 07/28/24 11:08 Patient Tobacco Use Status Former Tobacco user 07/28/24 11:08 Tobacco use type Cigarette 07/28/24 11:08 e-Cigarette/Vaping Use Currently Using 07/28/24 11:08 PHQ-9: PHQ-9 Score PHQ-9: Total score 6 07/28/24 11:21 Depression Screening Interpretation: Negative Thrive Assessment: Date of Thrive Assessment Date Thrive assessed 07/28/24 07/28/24 11:08 Currently or been in a relationship where the following occur: No concerns reported Const General: no acute distress Orientation/consciousness: patient oriented x3 Limitations: no limitations HENMT Mouth: tongue normal and oropharynx normal Neck Neck: Yes full ROM, Yes no lymphadenopathy and Yes supple Resp Effort & Inspection: normal respiratory effort and able to speak in complete sentences Auscultation: clear to auscultation bilaterally Cardio Other: S1-S2 present regular rate and rhythm GI Inspection: Yes normal to inspection Palpation (GI): Soft to palpation, nontender, no guarding and no masses General: Yes no CVA tenderness Male General Exam: Yes normal external exam Penis: normal penis Scrotum: not edematous, testes descended bilaterally, no masses and no scrotal swelling Testes: no testicular swelling and no testicular tenderness Back/Spine/Pelvis Back: no CVA tenderness and No back tenderness Skin General skin exam: no rashes or lesions noted and no jaundice Neuro General: patient oriented x3, gait normal, moves all extremities, Normal light touch and pain sensation, no focal motor deficits and CN's II-XI intact bilaterally Extrem General: Yes full ROM, Yes no joint enlargement, Yes no pedal edema and Yes normal gait Results Reviewed Results Reviewed: Name: Ishmael Kramer Age/Sex: 57/M : 1965 Unit#: [id number] Attend Dr: Joselyn Hunter MD Re11/10/23 Status: DEP REF Location: [facility] Disch: SPEC : [id number] TRAY: 11/10/23 STATUS: COMP REQ : [id number] RECD: 11/10/[address]: Joselyn Hunter MD COMP: 11/10/23 ENTERED: 11/10/[address]: Karely Velásquez MD ORDERED: CBC Auto Diff Test Result Flag Reference WBC 4.7 L 4.8-10.8 X10*3/uL RBC 4.88 4.60-5.80 X10*6/uL HGB 14.4 14.0-18.0 g/dl HCT 42.9 42.0-52.0 % MCV 87.9 80.0-98.0 fL MCH 29.5 27.0-33.0 pg MCHC 33.6 31.0-36.0 g/dl RDW 12.4 11.0-16.0 % PLT 191 160-400 X10*3/uL MPV 11.0 9.4-12.4 fL Neut Pct Auto 72.2 45-73 % ImGran Pct Auto 0.2 0.0-0.4 % Lymp Pct Auto 18.3 L 20-40 % Rogers Pct Auto 8.1 2-11 % Eos Pct Auto 0.6 0-4 % Baso Pct Auto 0.6 0-2 % NRBC Pct Auto 0.0 0.0-0.2 /100WBC ANC Neut Abs # 3.4 2.0-8.3 x10*3/uL ImGran Abs Auto 0.01 0.00-0.03 X10*3/uL Lymph Abs Auto 0.9 L 1.2-4.9 X10*3/uL Rogers Abs Auto 0.4 0.1-1.2 X10*3/uL Eos Abs Auto 0.0 0.0-0.4 X10*3/uL Baso Abs Auto 0.0 0.0-0.2 X10*3/uL NRBC Abs Auto 0.000 0.0-0.012 X10*3/uL Name: Ishmael Kramer Age/Sex: 58/M : 1965 Unit#: [id number] Attend Dr: Arabella Payne Re07/28/24 Status: REG [facility] Disch: SPEC : [id number] TRAY: 07/28/24 STATUS: COMP REQ : [id number] RECD: 07/28/[address]: Arabella Payne COMP: 07/28/24 ENTERED: 07/28/[address] [facility] [address]: Karely Velásquez MD ORDERED: BMP, Lipid Panel Test Result Flag Reference Sodium 140 135-145 mmol/L Potassium 4.1 3.3-5.1 mmol/L CL 107 96-108 mmol/L CO2 25 22-29 mmol/L Gap 12 12-20 BUN 12 9-16 mg/dL Creat 1.05 0.5-1.4 mg/dL EGFR > 60 NOTE: For -[place] individuals, multiply the result by 1.210. Chronic Kidney Disease: Estimated GFR < 60 mL/min/1.73m2 Severe Kidney Disease: Estimated GFR < 15 mL/min/1.73 m2 Glucose, Random 99 60-115 mg/dL CA 9.2 8.4-10.2 mg/dL Triglyceride 51 <150 mg/dL Desirable Triglyceride: less than 150 mg/dL Borderline High Triglyceride 150-199 mg/dL High Triglyceride: 200-499 mg/dL Very High Triglyceride: greater than or equal to 5OO mg/dL Cholesterol 141 <200 mg/dL Desirable Cholesterol: less than 200 mg/dL Borderline High Cholesterol: 200-239 mg/dL High Cholesterol: greater than 239 mg/dL LDL Calculated 88 <100 mg/dL Desirable LDL: less than 100 mg/dL Near Optimal/Above Optimal LDL: 110-129 mg/dL Borderline High LDL: 130-159 mg/dL High LDL: 160-189 mg/dL Very High LDL: greater than or equal to 190 mg/dL HDL 43 >40 mg/dL Desirable HDL: greater than 40 mg/dL Note: This HDL assay may give artificially low results in patients with liver disease. Coding Level of Care Code Est Pt Prev Care 40-64y(82529) Diagnoses Annual visit for general adult medical examination with abnormal findings Z00. 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 - Encounter for general adult medical examination with abnormal findings Plan: Reviewed recent fasting lab results with patient. Take adequate calcium in diet and vitamin-D 3 at 2000 IU per cap once a day, in addition to weight-bearing exercises to help maintain good muscle tone and weight control. Instructed to do self-testicular exam check for any mass. Colonoscopy done [place] [address] Strickland showed negative findings, due for recheck in 2026. Declined all recommended adult vaccinations (2) Nicotine dependence, cigarettes, uncomplicated: Comment: (120PYH) Code(s): F17.210 - Nicotine dependence, cigarettes, uncomplicated Category: Medical Plan: Patient strongly advised to stop smoking, as smoking damages blood vessels, degenerative of joints and spine, damage to lungs and heart., predisposes to developing certain cancers like lung, breast, bladder, colon. Recommended to try decreasing cigarette use by 1-2 cigarettes a day. Advised to monitor what triggers are for smoking so that this can be discussed on the next office visit. We can discuss different options to quit smoking when ready. (3) Facial neuralgia: Comment: right Trigeminal neuralgia ( V2) likely triggered by the dental extraction, diabetes, malnutrition etc. Code(s): G51.8 - Other disorders of facial nerve Category: Medical Plan: Continue carbamazepine ER 100 mg twice a day (4) Essential hypertension: Code(s): I10 - Essential (primary) hypertension Category: Medical Plan: Blood pressure at goal of less than 130/80. Continue lisinopril 10 mg daily. Reinforced importance of following a low sodium diet, getting regular exercise, and lowering stress levels. 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 Up-to-date with his diabetes retinopathy screening, goes to [place] [facility] with no retinopathy seen
[2024-07-28 10:58] VITALS: BP 132/72; PULSE 78; O2SAT 97; BMI 23.1
== END 2024-07-28 11:54 | disposition home or self-care (01) ==
PROVIDERS: PCP Internal Medicine; Visit Provider Internal Medicine
DX: Z00.00 Encounter for general adult medical examination without abnormal findings (principal); F17.210 Nicotine dependence, cigarettes, uncomplicated; E13.9 Other specified diabetes mellitus without complications; G51.8 Other disorders of facial nerve; I10 Essential (primary) hypertension; S36.209S Unspecified injury of unspecified part of pancreas, sequela

== ENCOUNTER 2024-08-02 09:06 | Outpatient (AMB) | payer OTHER, SELFPAY ==
[2024-08-02 09:22] VITALS: BP 119/83; PULSE 81; O2SAT 99; BMI 22.7
--- NOTE | 2024-08-02 09:22 | MHC.OFFVIS ---
Vital Signs 08/02/24 09:22 Height 6 ft Weight 167 lb 8.821 oz BMI 22.7 BP 119/83 Blood Pressure Location Lt brachial Position Sitting Pulse 81 Pulse Source Pulse Oximeter Pulse Oximetry (%) 99 Intake Visit Reasons: 6 month follow up Intake Note: Ishmael presents in the office as a 6 month follow up CC: Just a routine follow up - states that everything is doing good!! 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 VITAL SIGNS:see workflow HEENT: Nonicteric sclerae, PERRLA, EOMI. Oropharynx clear. Moist mucous membranes. Conjunctivae appear well perfused. No thyroid mass. CHEST: Chest wall is nontender. HEART: Regular rate and rhythm without murmurs. LUNGS: Clear to auscultation bilaterally. ABDOMEN: Soft, positive bowel sounds, nontender, no organomegaly.no flank tenderness GENITAL:not done RECTAL: not done SKIN: No rash, no excessive bruising, petechiae, or purpura. NEUROLOGIC: Cranial nerves II-XII intact without motor/sensory deficit. A/P: .1. chronic pancreatitis with vitamin def, taking supplements 2. 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 Son No problems noted. Son No problems noted. 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: No Cognitive needs: No Hearing needs: No Vision needs: No Physical Exam Vital Signs: Last Vital Signs Pulse 81 08/02/24 09:22 BP 119/83 08/02/24 09:22 Pulse Ox 99 08/02/24 09:22 BMI result Body Mass Index 22.7 Assessment & Plan Assessment & Plan (1) Vitamin D deficiency: Code(s): E55.9 - Vitamin D deficiency, unspecified Category: Medical Plan: see above (2) Disorder of bone, unspecified: Code(s): M89.9 - Disorder of bone, unspecified Category: Medical Plan: see above Orders: Orders Vitamin A Today E55.9 - Vitamin D deficiency, unspecified, M89.9 - Disorder of bone, unspecified Vitamin B1 Today E55.9 - Vitamin D deficiency, unspecified, M89.9 - Disorder of bone, unspecified Vitamin B5 (Pantothenic Acid) Today E55.9 - Vitamin D deficiency, unspecified, M89.9 - Disorder of bone, unspecified Vitamin C Today E55.9 - Vitamin D deficiency, unspecified, M89.9 - Disorder of bone, unspecified Vitamin D 25-OH Total Today E55.9 - Vitamin D deficiency, unspecified, M89.9 - Disorder of bone, unspecified XR DEXA axial skeleton Today E55.9 - Vitamin D deficiency, unspecified, M89.9 - Disorder of bone, unspecified Vitamin B12 and Folate Today E55.9 - Vitamin D deficiency, unspecified, M89.9 - Disorder of bone, unspecified Vitamin B3 (Niacin) Today E55.9 - Vitamin D deficiency, unspecified, M89.9 - Disorder of bone, unspecified Vitamin B6 Today E55.9 - Vitamin D deficiency, unspecified, M89.9 - Disorder of bone, unspecified Vitamin E Today E55.9 - Vitamin D deficiency, unspecified, M89.9 - Disorder of bone, unspecified Vitamin K1 Today E55.9 - Vitamin D deficiency, unspecified, M89.9 - Disorder of bone, unspecified Zinc Today E55.9 - Vitamin D deficiency, unspecified, M89.9 - Disorder of bone, unspecified Coding Level of Care Code Est Pt Level 3 (87100) Diagnoses Vitamin D deficiency E55.9 Disorder of bone, unspecified M89.9
== END 2024-08-02 10:18 | disposition home or self-care (01) ==
PROVIDERS: PCP Internal Medicine; Visit Provider Internal Medicine Gastroenterology
DX: E55.9 Vitamin D deficiency, unspecified (principal); M89.9 Disorder of bone, unspecified
CPT/HCPCS: 99213

== ENCOUNTER → 2024-08-02 09:06 | Outpatient (BNVA) | payer OTHER, SELFPAY | PROVIDERS: PCP Internal Medicine; Visit Provider Internal Medicine Gastroenterology ==

== ENCOUNTER 2024-08-03 07:49 | Outpatient (REF) | payer OTHER, SELFPAY ==
--- NOTE | ~2024-08-03 | CT_ITS ---
EXAMINATION: CT LOW-DOSE SCREENING CHEST WITHOUT CONTRAST CLINICAL INFORMATION: Nicotine dependence, cigarettes, uncomplicated. The patient has a 123 pack-year history of smoking, having quit 1 year ago. COMPARISON: Multiple prior CT scans of the chest, the most recent of which is dated 08/01/2023 and the most remote of which is dated 05/26/2020. TECHNIQUE: Multidetector volumetric CT imaging of the chest is performed on a Siemens SOMATOM Definition scanner without contrast using low dose technique. Additional 2D coronal and sagittal reformatted images and axial 3D maximum intensity projection (MIP) images are generated on the CT workstation. This CT examination was performed using dose optimization techniques as appropriate, variously including the following: *Automated exposure control *Adjustment of mA and/or kV according to patient size (this includes techniques or standardized protocols for targeted exams where dose is matched to indication/reason for exam; i.e. extremities or head) *Use of iterative reconstruction technique TOTAL EXAM DLP: 59 mGy-cm. CTDIvol: 1.50 mGy. FINDINGS: PULMONARY NODULES: Some tiny lung nodules are unchanged none larger than 2 mm (see saved mortensen images). Previously seen 4 mm nodular density in the right lower lobe may be endobronchial but is completely unchanged when compared to the prior study (5:323 compare prior 5:271). There is no new, increasing sized or suspicious pulmonary nodule. LUNGS: Lungs bilaterally symmetrically expanded. Some right middle lobe and lingular atelectasis is seen. No effusion or pneumothorax. Central airways patent. MEDIASTINUM: No mediastinal, hilar or axillary adenopathy or free fluid collection. CORONARY ARTERY CALCIFICATION: Present THYROID GLAND: Unremarkable to the extent seen. CARDIOVASCULAR STRUCTURES: Aortic and heart size normal. No pericardial effusion. CHEST WALL/AXILLA: Unremarkable. UPPER ABDOMEN: Diffuse pancreatic calcifications are again seen consistent with chronic pancreatitis. Pancreatic ductal dilatation is again noted but not as well appreciated as on prior contrast studies. There is a partially visualized cyst in the pancreatic head unchanged from prior. Included portions of the solid organs in the upper abdomen otherwise unremarkable on noncontrast imaging. OSSEOUS STRUCTURES: No suspicious focal findings. CT/CT lung screening IMPRESSION: No evidence of pulmonary malignancy. Incidental findings as above. ASSESSMENT: 1. Lung-RADS Category 2: Benign appearance or behavior of nodules. N/A 2. Lung-RADS Category S: Negative. There are no clinically significant or potentially clinically significant findings not related to the lungs requiring urgent additional evaluation. RECOMMENDATION: Continued routine annual low-dose CT lung screening in 1 year is recommended. An order for CT CHEST LOW DOSE CANCER SCREENING ([id number]) can be placed. Electronically signed by: Parish Hendrickson MD 09/20/2024 04:33 PM [facility]
== END 2024-08-03 07:50 | disposition home or self-care (01) ==
LOC: HO.CT 07:49
PROVIDERS: PCP Internal Medicine; Visit Provider Physician Assistant Medical
DX: Z12.2 Encounter for screening for malignant neoplasm of respiratory organs (principal); F17.210 Nicotine dependence, cigarettes, uncomplicated
CPT/HCPCS: 71271

== ENCOUNTER 2024-08-09 07:44 | Outpatient (AMB) | payer OTHER, SELFPAY ==
[2024-08-09 07:52] VITALS: BP 122/80; PULSE 56; BMI 22.9
--- NOTE | 2024-08-09 07:52 | A.OFFVIS_ITS ---
Vital Signs 08/09/24 07:52 Height 6 ft Weight 168 lb 13.985 oz BMI 22.9 BP 122/80 Blood Pressure Location Rt brachial Position Sitting Pulse 56 Pulse Source Pulse Oximeter Intake Visit Reasons: f/u DM-conf Intake Note: Patient presents today for Pancreolytic diabetes follow up visit. 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 Required: No Accompanied by: Self / Same As Patient Allergies No Known Allergies [No Known Allergies*] Allergy (Verified 08/09/24 07:57) Medication List - Last Reconciled 08/09/24 by Saym Duvall MD alcohol swabs (Alcohol Wipes) 1 pad topical TID amitriptyline 10 mg PO BEDTIME blood sugar diagnostic (FreeStyle Lite Strips) Check blood sugar as directed twice a day before meals blood-glucose meter (FreeStyle Lite Meter kit) Check blood sugar as directed before meals twice a day blood-glucose sensor (Dexcom G6 Sensor device) USE 1 SENSOR DIRECTED, CHANGE EVERY 10 DAYS blood-glucose transmitter (Dexcom G6 Transmitter device) As directed carbamazepine ER 100 mg PO BID cetirizine 10 mg PO DAILY PRN flash glucose sensor ([employer] Pharm[employer]Style Roz 2 Sensor kit) As directed hydrocortisone 2.5% topical insulin lispro Infuse up to 50 units via insulin pump per day subcutaneously; insulin pump cart,auto,BT-cntr (Omnipod 5 G6 Intro Kit (Gen 5) subcutaneous cartridge with controller) As directed insulin pump cart,automated,BT (Omnipod 5 G6 Pods (Gen 5) subcutaneous cartridge) USE DIRECTED BY DOCTOR FOR SUBCUTANEOUS DELIVERY OF INSULIN. CHANGE EVERY 72 HOURS. lancets (FreeStyle Lancets) Check blood sugar twice a day as directed before meals [id number] 36,000-114,000- 180,000 unit (Creon) caps PO lisinopril 10 mg PO DAILY pen needle, diabetic (BD Ultra-Fine Kim Pen Needle) As directed four times a day prednisone 10 mg PO DIRECTED tamsulosin (Flomax) 0.4 mg PO BEDTIME thiamine HCl (vitamin B1) 300 mg (3 x 100 mg) PO DAILY vitamin A 1 cap PO DAILY [VITAMIN D3 25MCG CAP 1 cap PO DAILY] HPI Comments Details: Patient is a 58 year old male with DM diagnosed September 2020 who presents for management of diabetes. . He did have a low C-peptide 2019. He has a very low carb to no carb diet. 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 4 hours Target(s): 12 AM to 12 AM 110 mg/dL Correction threshold: 12 AM to 12 AM 120 mg/dL Total daily dose is 16.8 units with 52% basal and 48% bolus. Auto mode is in use 100% of the time Continuous glucose monitoring: In the last 14 days C GM is active 55% an average blood glucose of 146. GM I .%. Glucose variability . , . Blood glucose in target range of 70-180,79 %. Glucose high from 181-250, %. Glucose very high over 250, %. there is 0% hypoglycemia. 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 Eye exam: couple of mos ago - ou no retinopathy Laboratory Tests 08/17/21 08/17/21 08/17/21 11:32 11:32 11:32 Creatinine Estimated GFR Hemoglobin A1c % 7.8 Triglycerides 53 Cholesterol 139 LDL Cholesterol, Calc 83 HDL Cholesterol 46 25-OH Vitamin D Total 29.0 Microalb/Creat Ratio TNP 11/06/21 09:16 Creatinine 1.19 Estimated GFR > 60 Hemoglobin A1c % Triglycerides Cholesterol LDL Cholesterol, Calc HDL Cholesterol 25-OH Vitamin D Total Microalb/Creat Ratio [facility] Medical History Nicotine dependence, cigarettes, uncomplicated Bradycardia Facial neuralgia Numbness and tingling Tongue burning sensation Pancreatolithiasis History of alcohol abuse 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 Son No problems noted. Son No problems noted. 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 Absence of acromegalic features. Neck exam reveals nl size thyroid about 15 gms. No thyroid nodules palpable. No carotid bruits present. Lungs CTA. Heart S1 S2, Reg R/R. No M/R/ G. Skin exam reveals absence of vitiligo or acanthosis nigricans. Abdominal exam reveals Soft NT/ND with NA BS. No organomegaly present. Neck Other: . Extrem Other: Visual exam of foot performed. No ulcerations or open lesions. No onchomycosis, no callouses.Pulses 2 + distally Sensation intact to monofilament exam. 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 He inquired about integration with Dexcom G7 am having him be for follow-up with childbirth educator to discuss whether this can be done. 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
[2024-08-09 08:10] LABS: Glucose, Whole Blood 128 mg/dL (60-115)
== END 2024-08-09 08:18 | disposition home or self-care (01) ==
PROVIDERS: PCP Internal Medicine; Visit Provider Internal Medicine Endocrinology, Diabetes & Metabolism
DX: E13.9 Other specified diabetes mellitus without complications (principal); S36.209S Unspecified injury of unspecified part of pancreas, sequela
CPT/HCPCS: 99214

== ENCOUNTER → 2024-08-09 07:44 | Outpatient (BNVA) | payer OTHER, SELFPAY | PROVIDERS: PCP Internal Medicine; Visit Provider Internal Medicine Endocrinology, Diabetes & Metabolism | DX: E13.9 Other specified diabetes mellitus without complications (principal); S36.209S Unspecified injury of unspecified part of pancreas, sequela; Z96.41 Presence of insulin pump (external) (internal) | CPT/HCPCS: 82947 ==

== ENCOUNTER 2024-08-19 10:46 | Outpatient (REF) | payer OTHER, SELFPAY ==
--- NOTE | ~2024-08-19 | MM_ITS ---
EXAMINATION: BONE DENSITOMETRY CLINICAL INDICATION: Vitamin D deficiency, unspecified. COMPARISON: This is the patient's baseline examination. TECHNIQUE: Using a [employer] DXA System (software version: 13.1) manufactured by [employer], dual-energy x-ray absorptiometry was performed of the lumbar spine and left hip. The images are of good technical quality. Summary results are attached. FINDINGS: LEFT FEMUR, NECK: BMD 0.886 g/cm2, Z-score -0.5, T-score -1.4, osteopenia. LEFT FEMUR, TOTAL: BMD 0.985 g/cm2, Z-score -0.3, T-score -0.8, normal. AP SPINE L1-L3 (excluding L4): The data of L1-L4 has been changed to exclude the L4 vertebral body, because at this level may cause overestimation of lumbar spine density. BMD 1.107 g/cm2, Z-score -0.5, T-score -0.9, normal. IDENTIFIED RISK FACTORS: History of fracture (adult). HISTORY OF FRACTURE: Spine. MEDICATIONS: Multivitamin, vitamin D. MM/XR DEXA axial skeleton IMPRESSION: 1. DIAGNOSIS: Osteopenia based on the lowest T-score value of -1.4 in the femoral neck applying World Health Organization criteria. 2. 10-YEAR FRACTURE RISK PREDICTION, FRAX: Major osteoporotic fracture (clinical spine, forearm, hip or shoulder) 9.7%. Hip fracture 1.2%. 3. Treatment Recommendations: NOF guidelines recommend consideration for treatment in postmenopausal women and men age 50 and older presenting with the following: -A hip or vertebral (clinical or morphometric) fracture. -T-score less than or equal to -2.5 at the femoral neck or spine after appropriate evaluation to exclude secondary causes. -Low bone mass at the hip or spine and a 10-year fracture probability by FRAX of greater than or equal to 3% for hip fracture or greater than or equal to 20% for major osteoporotic fracture based on the [place] adapted WHO algorithm. 4. Other Recommendations: All treatment decisions require clinical judgment and consideration of individual patient factors, including patient preferences, comorbidities, previous drug use, risk factors not captured in the FRAX model (e.g. frailty, falls, vitamin D deficiency, increased bone turnover, interval significant decline in bone density) and possible under or overestimation of fracture risk by FRAX. Additional medical evaluation for secondary cause of low bone mineral density may be appropriate. FUTURE SCAN RECOMMENDATION: People with diagnosed cases of osteoporosis or at high risk for fracture should have regular bone mineral density tests. For patients eligible for Medicare, routine testing is allowed once every 2 years. The testing frequency can be increased to one year for patients who have rapidly progressing disease, those who are receiving or discontinuing medical therapy to restore bone mass, or have additional risk factors. Electronically signed by: Rosa Jones MD 08/23/2024 10:44 AM RAMÓN JOLLY
[2024-08-19 13:03] LABS: Vitamin D 25-OH Total 36.7 ng/mL (>30)
[2024-08-19 13:17] LABS: Folate 12.8 ng/mL (> or = 4.0); Vitamin B12 242 pg/mL (200-900)
[2024-08-23 19:08] LABS: Vitamin K1 93 pg/mL (130-1500)
[2024-08-25 02:48] LABS: Zinc 94 mcg/dL (60-130)
[2024-08-25 11:43] LABS: Vitamin B6 16.7 ng/mL (2.1-21.7)
[2024-08-25 11:58] LABS: Nicotinamide <20 ng/mL (see note); Vit B3 - Nicotinic Acid <20 ng/mL (see note); Vitamin B5 (Pantothenic Acid) 55 ng/mL (<275)
[2024-08-25 18:39] LABS: Alpha-Tocopherol 8.5 mg/L (5.7-19.9); Beta-Gamma Tocopherol <1.0 mg/L (<=4.3)
[2024-08-25 19:24] LABS: Vitamin A 55 mcg/dL (38-98)
[2024-08-26 06:03] LABS: Vitamin C 0.8 mg/dL (0.2-2.1)
[2024-08-27 16:08] LABS: Vitamin B1 33 nmol/L (8-30)
== END 2024-08-19 10:47 | disposition home or self-care (01) ==
LOC: HO.HMGCLDS 10:46
PROVIDERS: PCP Internal Medicine; Visit Provider Internal Medicine Gastroenterology
DX: M89.9 Disorder of bone, unspecified (principal); E55.9 Vitamin D deficiency, unspecified; M85.852 Other specified disorders of bone density and structure, left thigh
CPT/HCPCS: 36415; 77080; 82180; 82306; 82607; 82746; 84207; 84425; 84446; 84590; 84591; 84597; 84630

== ENCOUNTER 2024-08-19 13:42 | Outpatient (REF) | payer OTHER, SELFPAY | END 2024-08-19 13:43 | disposition home or self-care (01) | LOC: HO.MAMMO 13:42 | PROVIDERS: PCP Internal Medicine; Visit Provider Internal Medicine Gastroenterology | DX: Z13.89 Encounter for screening for other disorder (principal) ==

== ENCOUNTER 2024-08-25 07:46 | Outpatient (AMB) | payer OTHER, SELFPAY ==
--- NOTE | 2024-08-25 08:16 | MHC.AMDMED ---
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: No Accompanied by: Self / Same As Patient Allergies No Known Allergies [No Known Allergies*] Allergy (Verified 08/09/24 07:57) HPI Comprehensive Diabetes Asmnt Most Recent Diabetes Results: Microalb/Creat Ratio 6.1 ug/mg cr (<30) 07/28/24 Cholesterol 141 mg/dL (<200) 07/28/24 HDL Cholesterol 43 mg/dL (>40) 07/28/24 Triglycerides 51 mg/dL (<150) 07/28/24 Creatinine 1.05 mg/dL (0.5-1.4) 07/28/24 Blood Urea Nitrogen 12 mg/dL (9-16) 07/28/24 Sodium 140 mmol/L (135-145) 07/28/24 Potassium 4.1 mmol/L (3.3-5.1) 07/28/24 Chloride 107 mmol/L (96-108) 07/28/24 Carbon Dioxide 25 mmol/L (22-29) 07/28/24 Calcium 9.2 mg/dL (8.4-10.2) 07/28/24 AST 15 U/L (5-37) 11/10/23 ALT 22 U/L (0-40) 11/10/23 Total Protein 7.3 g/dL (6.5-8.0) 11/10/23 Albumin 4.5 g/dL (3.5-5.0) 11/10/23 [facility] Medical History Nicotine dependence, cigarettes, uncomplicated Bradycardia Facial neuralgia Numbness and tingling Tongue burning sensation Pancreatolithiasis History of alcohol abuse 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 Son No problems noted. Son No problems noted. 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 The following topics were reviewed today: Patient is currently off pump due to issue with insurance coverage. Patient is currently taking Lantus 20 units daily, Humalog 7-8 units prior to meals At today's visit we set up BolusCalc ellie in his cell phone In addition called Omnipod rep and left message containing patient has contact information to see he can assist patient in getting extra pods until his insurance issue is resolved. Discussed upgrading from Dexcom G6 to Dexcom G7, at this time patient will remain on Dexcom G6 until he confirms that he can receive Dexcom G7 pods. ??? High Alert: 250 mg/dl ??? Low Alert: 70 mg/dl Patient's average glucose for the past week 135 mg/dL Patient above target 10% Patient at target 89% Patient below target 1% Patient reports that several of his lows were caused by over estimating the amount of carbohydrates at meals Patient in auto mode 100% of the time Patient had A1c drawn 07/28/24, 6.3% Troubleshooting after starting new pod or inserting new insulin set: Occlusion, adhesive tape sensitivity, redness Check BG 2 hours after site change Safety information: Importance of a backup plan, for manual injections, proper prescriptions and emergency supplies ketone strips, and rules for testing for ketones Patient understands the basic concepts of pump therapy, how to give insulin for meals and snacks, how to troubleshoot for hyper and hypoglycemia. Setting verified by CDCES, no changes to patient's pump settings at this visit Basal rate(s) (units/hour) : 12 AM to 12 AM 0.7 units / hr Bolus setting Insulin Carbohydrate Ratio (s) 12 AM to 12 AM 1:13 Correction Factor / Sensitivity Factor 12 AM to 12 AM 1:44 Active Insulin Time:? 4 hours Target(s): 12 AM to 12 AM 110 mg/dL Correction threshold: 12 AM to 12 AM 120 mg/dL Patient will follow up with CDE in 4 months Patient will contact CDE with questions or concerns, patient given IT number to support in any technical issues related to insulin pump Patient Instructions: DIABETES PROBLEMS HOMECARE INSTRUCTIONS? for High Blood Sugar and When to Test for Ketones Hyperglycemia is the technical term for high blood glucose (blood sugar). High blood sugar happens when the body has too little insulin or when the body can't use insulin properly. What causes hyperglycemia? A number of things can cause hyperglycemia: If you have type 1, you may not have given yourself enough insulin. ? If you have type 2, your body may have enough insulin, but it is not as effective as it should be. You ate more than planned or exercised less than planned. You have stress from an illness, such as a cold or flu. You have other stress, such as family conflicts or school or dating problems. How to lower your blood sugar level. ? Take medications as directed by physician. ? Drink extra water or noncaffeinated, nonsugared drinks to prevented hydration. ? Exercise if you are not sick However, if your blood sugar is above 250 mg/dl, check your urine for ketones. If you have ketones, do not exercise Exercising when ketones are present may make your blood sugar level go even higher. You'll need to work with your doctor to find the safest way for you to lower your blood sugar level. Regularly check blood sugar or urine for sugar and acetone during illness. Diabetic ketoacidosis (DKA) Is serious condition that can lead to diabetic coma (passing out for a long time) or even . When your cells don't get the glucose they need for energy, your body begins to burn fat for energy, which produces ketones. Ketones are chemicals that the body creates when it breaks down fat to use for energy. The body does this when it doesn?t have enough insulin to use glucose, the body?s normal source of energy. When ketones build up in the blood, they make it more acidic. They are a warning sign that your diabetes is out of control or that you are getting sick. Symptoms of Diabetic Ketoacidosis (DKA) ? DKA usually develops slowly. But when vomiting occurs, this life-threatening condition can develop in a few hours. Early symptoms include the following: ? Thirst or a very dry mouth ? Frequent urination ? High blood glucose (blood sugar) levels ? High levels of ketones in the urine ? Then, other symptoms appear: ? Constantly feeling tired ? Dry or flushed skin ? Nausea, vomiting, or abdominal pain ? (Vomiting can be caused by many illnesses, not just ketoacidosis. If vomiting continues for more than 2 hours, contact your health care provider.) ? Difficulty breathing ? Fruity odor on breath ? A hard time paying attention, or confusion When should you test for ketones? It is advisable to check for ketones under the following conditions when: Your blood glucose is higher than 250mg/dl. Feeling nauseated, throwing up, or have pains in your abdominal region. Have a cold or flu. Have general body fatigue. Feel thirsty or have a very dry mouth. Have flushed skin. Have a fruity breath or a hard time breathing. You feel perplexed or in fog. How to Test Urine for Ketones You can detect ketones with a simple urine test using a test strip, similar to a blood testing strip. Ask your health care provider when and how you should test for ketones. Many experts advise to check your urine for ketones when your blood glucose is more than 250 mg/dl. When you are ill (when you have a cold or the flu, for example), check for ketones every 4 to 6 hours. And check every 4 to 6 hours when your blood sugar is more than 250 mg/dl. Also, check for ketones when you have any symptoms of DKA. How to lower your blood sugar level. ? Take medications as directed by physician. ? Drink extra water or noncaffeinated, nonsugared drinks to prevented hydration. ? Exercise if you are not sick However, if your blood sugar is above 250 mg/dl, check your urine for ketones. If you have ketones, do not exercise Exercising when ketones are present may make your blood sugar level go even higher. You'll need to work with your doctor to find the safest way for you to lower your blood sugar level. 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
== END 2024-08-25 08:30 | disposition home or self-care (01) ==
PROVIDERS: PCP Internal Medicine; Visit Provider Registered Nurse Diabetes Educator
DX: E13.9 Other specified diabetes mellitus without complications (principal); S36.209S Unspecified injury of unspecified part of pancreas, sequela

== ENCOUNTER → 2024-08-25 07:46 | Outpatient (BNVA) | payer OTHER, SELFPAY | PROVIDERS: PCP Internal Medicine; Visit Provider Registered Nurse Diabetes Educator | DX: Z46.81 Encounter for fitting and adjustment of insulin pump (principal); E13.9 Other specified diabetes mellitus without complications; S36.209S Unspecified injury of unspecified part of pancreas, sequela | CPT/HCPCS: 99211 ==

== ENCOUNTER 2024-09-16 07:33 | Outpatient (AMB) | payer OTHER, SELFPAY ==
[2024-09-16 07:34] VITALS: BP 138/84; BMI 23.5
--- NOTE | 2024-09-16 07:34 | A.OFFVIS_ITS ---
Vital Signs 09/16/24 07:34 Height 6 ft Weight 173 lb BMI 23.5 BP 138/84 Blood Pressure Location Rt brachial Position Sitting Intake Visit Reasons: Follow up Intake Note: Patient presents for follow up Allergies No Known Allergies [No Known Allergies*] Allergy (Verified 09/16/24 07:37) HPI Comments Details: 58y/o male comes here for f/u of tingling in the gum , tongue, inner cheek on the right side. He is sleeping better with amitriptyline but does not help with his facial discomfort. History from initial visit- It started about 2-3 years ago . He had a right upper molar extraction- which could not be completed, he was referred to maxillofacial surgeon who completed the extraction.It started as infrequent episodes now he has daily episodes which can last the whole day . He feels it resolves at bedtimes. He also describes as numbing feeling. 1-2 times a week when he takes a nap he tends to bite his cheek .No difficulty speaking or swallowing . He denies pain. He describes it as pins and needles sensation and mild burning. He denies any shooting pain from ear down his cheek. He feels it in his tongue more after he eats but not sure eating or drinking triggers any episodes. Change in temperature or spicy food does not worsen.He denies frequent headaches. No head injury. He has h/o chronic pancreatitis due to alcohol. He quit 16 years ago. Now he has diabetes - on an insulin pump for past 2 mths . 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 Son No problems noted. Son No problems noted. 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: No Cognitive needs: No Hearing needs: No Vision needs: No Physical Exam Vital Signs: Last Vital Signs BP 138/84 09/16/24 07:34 BMI result Body Mass Index 23.5 Const General: cooperative, healthy appearing, comfortable and no acute distress Nutritional Appearance: average body habitus Orientation/consciousness: patient oriented x3 Neuro General: patient oriented x3, gait normal, tone normal, moves all extremities and no focal motor deficits Cognition (Neuro): normal cognition Gait exam (Neuro): Normal gait present Motor exam (neuro): 5/5 motor strength present throughout and Normal motor muscle tone present throughout Coordination: [id number] test normal Assessment & Plan Assessment & Plan (1) Facial neuralgia: Comment: right Trigeminal neuralgia ( V2) likely triggered by the dental extraction, diabetes, malnutrition etc. 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 Orders: Orders Comprehensive Met. Panel Today G51.8 - Other disorders of facial nerve Complete Blood Count Auto Diff Today G51.8 - Other disorders of facial nerve Medications: Changed From amitriptyline 10 mg PO BEDTIME 30 tabs 6RF To amitriptyline 25 mg PO BEDTIME 30 tabs 6RF From carbamazepine ER 100 mg PO BID 60 caps 6RF To carbamazepine ER 200 mg PO BID 60 caps 6RF Coding Level of Care Code Est Pt Level 4 (39406) Complex EM visit Add On G2211 Diagnoses Facial neuralgia G51.8
== END 2024-09-16 08:15 | disposition home or self-care (01) ==
PROVIDERS: PCP Internal Medicine; Visit Provider Psychiatry & Neurology Neurology
DX: G51.8 Other disorders of facial nerve (principal)
CPT/HCPCS: 99214; G2211

== ENCOUNTER → 2024-09-16 07:33 | Outpatient (BNVA) | payer OTHER, SELFPAY | PROVIDERS: PCP Internal Medicine; Visit Provider Psychiatry & Neurology Neurology | DX: G51.8 Other disorders of facial nerve (principal) | CPT/HCPCS: 99212 ==

== ENCOUNTER 2024-11-09 09:08 | Outpatient (AMB) | payer OTHER, SELFPAY ==
--- NOTE | 2024-11-09 07:15 | A.OFFVIS_ITS ---
Vital Signs 11/09/24 09:16 Height 6 ft Weight 171 lb 15.369 oz BMI 23.3 BP 148/92 H Blood Pressure Location Rt brachial Position Sitting Pulse 68 Pulse Source Pulse Oximeter Intake Visit Reasons: f/u pancreolytic diabetes with pump Intake Note: Patient presents today for a follow-up on Pancreolytic Diabetes on Insulin Pump: Last Diabetic eye exam was on: DUE Last Podiatry exam was on: Patient does not see a Financial Sales Associate Most recent HbA1c: 6.3%, 11/09/2024 Random Glucose- 117 mg/dL, Today Allergies No Known Allergies [No Known Allergies*] Allergy (Verified 09/16/24 07:37) HPI Comments Details: Patient is a 58 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 He was last seen by Dr. Duvall 08/09/2024. He did have a low C-peptide 2019. He has a history of chronic pancreatitis. He is on Creon. He follows a low carb diet. - works as [employer] - Micro and macrovascular complications: none known He was seen by the certified breastfeeding educator in August at which time he was on Lantus 20 units daily, Humalog 7-8 units prior to meals and was set up with the bolus calculator ellie on his phone. He was having issues with insurance/supplies. PA G6 09/22/24 to 09/22/25 PA Pods 09/14/24 to 03/14/25 Currently on an Omnipod 5 pump with Dexcom G6 Freestyle vivienne sensor 3 average glucose: 157 14 day continuous glucose sensor report reviewed Glucose Management indicator 7.7 % Time CGM active 100 % TIme in ranges: 3 % very high (above 250) 23 % high (181-250) 74 % in range (70-180] 0 % low (69-55) 0 % very low (below 54) 26.8 Glucose variability (target <36%) Interpretation of CGMS [well-controlled with the exception of some postprandial increases after supper which he contributes to not entering in his carbs 15 minutes before the meal ] Total daily dose of insulin 35.7 Basal 60% 21.3 We will as 40% 14.4 entering 204 carbs daily Basal rate(s) (units/hour) : 12 AM to 12 AM 0.7 units / hr Bolus setting Insulin Carbohydrate Ratio (s) 12 AM to 12 AM 1:13 Correction Factor / Sensitivity Factor 12 AM to 12 AM 1:44 Active Insulin Time:? 4 hours Target(s): 12 AM to 12 AM 110 mg/dL Correction threshold: 12 AM to 12 AM 120 mg/dL Denies neuropathy. Denies numbness, tingling, pain or cramping in the lower extremities. Denies retinopathy. Last eye exam [facility] Denies nephropathy. 10/25/2024 eGFR>60 07/28/2024 microalbumin 6.0 not on Juni inhibitor Last lipid profile 07/28/2024 LDL 88 Not on statin. 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 Son No problems noted. Son No problems noted. 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 Absence of acromegalic features. Neck exam reveals nl size thyroid about 15 gms. No thyroid nodules palpable. No carotid bruits present. Lungs CTA. Heart S1 S2, Reg R/R. No M/R G. Skin exam reveals absence of vitiligo or acanthosis nigricans. No edema Visual exam of foot performed. No ulcerations or open lesions. No inter digit maceration or fissuring. No onychomycosis, no callouses. Sensation intact to monofilament exam. Vibratory sensation is normal with 128 Hz tuning fork. 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 The patient had an opportunity to ask questions regarding treatment plan. The patient expressed understanding and agreement with the above treatment plan. The patient is aware they should contact our office by phone for worsening glucose readings or for any low blood sugars which may warrant a change in diabetes medication. Compliance is encouraged with medications and any followup testing/consults which may have been ordered. Orders: Orders AMB Hemoglobin A1c Today E13.9 - Other specified diabetes mellitus without complications, S36.209S - Unspecified injury of unspecified part of pancreas, sequela AMB Glucose Monitoring Today E13.9 - Other specified diabetes mellitus without complications, S36.209S - Unspecified injury of unspecified part of pancreas, sequela Medications: Discontinued prednisone see taper instructions 40mg x 1 day, 30 mg x 2 days, 20 mg x 2 days, 10 mg x 2 days Discontinued Reason: Doctor's Order 10 mg PO DIRECTED 18 tabs 0RF Patient Instructions: Take 15 carb carbohydrate grams to treat a low sugar (3-4 glucose tablets, half a glass of juice or 15 carbohydrate grams of soft candy such as gummie snacks). Recheck your sugar in 15 minutes and re-treat again with 15 carbohydrate grams if low or still with symptoms. Do not drive a car or operate machinery if you do not know what your blood sugar is, if it is low or in excess of 300. The patient was counseled to achieve a target A1C of 7% (154 avg). Fasting blood sugars should be 90-130 in the morning and less than 180 two hours after meals. Reviewed the relationship between poor diabetic control and the development of complications. Check your feet daily looking for any signs of infection, drainage, redness, ulceration and seek medical attention if this occurs. Break in shoes gradually and do not wear open-toed shoes or walk stocking footed or barefooted. Diabetic ketoacidosis (DKA) A serious condition that can lead to diabetic coma (passing out for a long time) or even When your cells don't get the glucose they need for energy, your body begins to burn fat for energy, which produces ketones. Ketones are chemicals that the body creates when it breaks down fat to use for energy. The body does this when it doesn?t have enough insulin to use glucose, the body?s normal source of energy. When ketones build up in the blood, they make it more acidic. They are a warning sign that your diabetes is out of control or that you are getting sick. Symptoms of Diabetic Ketoacidosis (DKA) DKA usually develops slowly. But when vomiting occurs, this life-threatening condition can develop in a few hours. Early symptoms include the following: ? Thirst or a very dry mouth ? Frequent urination ? High blood glucose (blood sugar) levels ? High levels of ketones in the urine ? Then, other symptoms appear: ? Constantly feeling tired ? Dry or flushed skin ? Nausea, vomiting, or abdominal pain ? (Vomiting can be caused by many illnesses, not just ketoacidosis. If vomiting continues for more than 2 hours, contact your health care provider.) ? Difficulty breathing ? Fruity odor on breath ? A hard time paying attention, or confusion When should you test for ketones? It is advisable to check for ketones under the following conditions when: Your blood glucose is higher than 250mg/dl. Feeling nauseated, throwing up, or have pains in your abdominal region. Have a cold or flu. Have general body fatigue. Feel thirsty or have a very dry mouth. Have flushed skin. Have a fruity breath or a hard time breathing. You feel perplexed or in fog. How to Test Urine for Ketones You can detect ketones with a simple urine test using a test strip, similar to a blood testing strip. Ask your health care provider when and how you should test for ketones. Many experts advise to check your urine for ketones when your blood glucose is more than 250 mg/dl. When you are ill (when you have a cold or the flu, for example), check for ketones every 4 to 6 hours. And check every 4 to 6 hours when your blood sugar is more than 250 mg/dl. Also, check for ketones when you have any symptoms of DKA. How to lower your blood sugar level. ? Take medications as directed by physician. ? Drink extra water or noncaffeinated, nonsugared drinks to prevented hydration. ? Exercise if you are not sick However, if your blood sugar is above 250 mg/dl, check your urine for ketones. If you have ketones, do not exercise Exercising when ketones are present may make your blood sugar level go even higher. You'll need to work with your doctor to find the safest way for you to lower your blood sugar level. 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
[2024-11-09 09:16] VITALS: BP 148/92; PULSE 68; BMI 23.3
[2024-11-09 09:24] LABS: Glucose, Whole Blood 117 mg/dL (60-115)
== END 2024-11-09 09:43 | disposition home or self-care (01) ==
PROVIDERS: PCP Internal Medicine; Visit Provider Nurse Practitioner Adult Health
DX: E13.9 Other specified diabetes mellitus without complications (principal); S36.209S Unspecified injury of unspecified part of pancreas, sequela
CPT/HCPCS: 95251; 99214

== ENCOUNTER → 2024-11-09 09:08 | Outpatient (BNVA) | payer OTHER, SELFPAY | PROVIDERS: PCP Internal Medicine; Visit Provider Nurse Practitioner Adult Health | DX: E13.9 Other specified diabetes mellitus without complications (principal); S36.209S Unspecified injury of unspecified part of pancreas, sequela; X58.XXXS Exposure to other specified factors, sequela; Z96.41 Presence of insulin pump (external) (internal); Z79.4 Long term (current) use of insulin | CPT/HCPCS: 82947; 83036; 99212 ==

== ENCOUNTER 2024-12-23 07:45 | Outpatient (AMB) | payer OTHER, SELFPAY ==
--- NOTE | 2024-12-23 08:06 | MHC.AMDMED ---
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 Required: No Accompanied by: Self / Same As Patient Allergies No Known Allergies [No Known Allergies*] Allergy (Verified 09/16/24 07:37) HPI Comprehensive Diabetes Asmnt Most Recent Diabetes Results: Microalb/Creat Ratio 6.1 ug/mg cr (<30) 07/28/24 Cholesterol 141 mg/dL (<200) 07/28/24 HDL Cholesterol 43 mg/dL (>40) 07/28/24 Triglycerides 51 mg/dL (<150) 07/28/24 Creatinine 0.91 mg/dL (0.5-1.4) 10/25/24 Blood Urea Nitrogen 15 mg/dL (9-16) 10/25/24 Sodium 142 mmol/L (135-145) 10/25/24 Potassium 4.0 mmol/L (3.3-5.1) 10/25/24 Chloride 110 mmol/L (96-108) H 10/25/24 Carbon Dioxide 29 mmol/L (22-29) 10/25/24 Calcium 8.7 mg/dL (8.4-10.2) 10/25/24 AST 22 U/L (5-37) 10/25/24 ALT 23 U/L (0-40) 10/25/24 Total Protein 6.3 g/dL (6.5-8.0) L 10/25/24 Albumin 3.7 g/dL (3.5-5.0) 10/25/24 [facility] Medical History Nicotine dependence, cigarettes, uncomplicated Bradycardia Facial neuralgia Numbness and tingling Tongue burning sensation Pancreatolithiasis History of alcohol abuse 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 Son No problems noted. Son No problems noted. 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 The following topics were reviewed today: Discussed upgrading from Dexcom G6 to Dexcom G7 ??? High Alert: 250 mg/dl ??? Low Alert: 70 mg/dl Patient in auto mode 99% of the time Patient had A1c drawn 10/28/23, 6.3% Troubleshooting after starting new pod or inserting new insulin set: Occlusion, adhesive tape sensitivity, redness Check BG 2 hours after site change Safety information: Importance of a backup plan, for manual injections, proper prescriptions and emergency supplies ketone strips, and rules for testing for ketones Reviewed off pump plan, rules about when to test for ketones, Pt states he has insulin syringes and ketone strips at home. We also discussed after opening Lantus pen or Humalog vial that it expires after 28 days, he will need to discard insulin in open new pen or vial Message sent to provider for scripts for Dexcom G7 sensors and Lantus pens Patient understands the basic concepts of pump therapy, how to give insulin for meals and snacks, how to troubleshoot for hyper and hypoglycemia. Setting verified by [facility], no changes to patient's pump settings at this visit Basal rate(s) (units/hour) : 12 AM to 12 AM 0.7 units / hr Bolus setting Insulin Carbohydrate Ratio (s) 12 AM to 12 AM 1:13 Correction Factor / Sensitivity Factor 12 AM to 12 AM 1:44 Active Insulin Time:? 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
== END 2024-12-23 08:37 | disposition home or self-care (01) ==
PROVIDERS: PCP Internal Medicine; Visit Provider Registered Nurse Diabetes Educator
DX: E13.9 Other specified diabetes mellitus without complications (principal); S36.209S Unspecified injury of unspecified part of pancreas, sequela

== ENCOUNTER → 2024-12-23 08:01 | Outpatient (BNVA) | payer OTHER, SELFPAY | PROVIDERS: PCP Internal Medicine; Visit Provider Registered Nurse Diabetes Educator | DX: E13.9 Other specified diabetes mellitus without complications (principal); S36.209S Unspecified injury of unspecified part of pancreas, sequela; Z79.4 Long term (current) use of insulin; X58.XXXD Exposure to other specified factors, subsequent encounter; Z96.41 Presence of insulin pump (external) (internal) | CPT/HCPCS: 99211 ==

== ENCOUNTER 2025-02-04 06:59 | Outpatient (AMB) | payer OTHER, SELFPAY ==
--- NOTE | 2025-02-04 07:02 | A.OFFVIS_ITS ---
Vital Signs 02/04/25 07:24 Height 6 ft BP 124/84 Blood Pressure Location Lt brachial Position Sitting Pulse 60 Pulse Source Pulse Oximeter Pulse Oximetry (%) 93 Oxygen Delivery Method Room Air Intake Visit Reasons: f/u pancreolytic diabetes with pump Intake Note: Patient presents today for a follow-up on Pancreolytic Diabetes, Patient on Insulin Pump: Last Diabetic eye exam was on: 08/2024 Last Podiatry exam was on: Patient does not see a Internet Sales Consultant Most recent HbA1c: 6.5% Random Glucose- 128mg/dL Security Representative Required: No Accompanied by: Self / Same As Patient Allergies No Known Allergies [No Known Allergies*] Allergy (Verified 02/04/25 07:30) HPI Comments Details: Patient is a 58 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 He was last seen 3 months ago with the an A1c of 6.3%. 02/04/25 A1C 6.5%. He does have a low C-peptide 2019. He has a history of chronic pancreatitis. He is on Creon. He follows a low carb diet. 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 - Micro and macrovascular complications: none known Currently on an Omnipod 5 pump with Dexcom G7 Dexcom average glucose: 144 14 day continuous glucose monitor report reviewed Days with CGM data 80 % TIme in ranges: 4 % very high (above 250) 14 % high ?(181-250) 81 % in range ?(70-180] 0 % low (69-55) 1 % ?very low (below 54) Interpretation: He is in auto mode 99% of the time entering in 124 carbs daily No significant postprandial excursions Total daily dose of insulin 21.3 57% basal 12.1 43% bolus 9.2 backup insulin plan Lantus 12 units with usual doses of Humalog Basal rate(s) (units/hour) : 12 AM to 12 AM 0.7 units / hr Bolus setting Insulin Carbohydrate Ratio (s) 12 AM to 12 AM 1:13 Correction Factor / Sensitivity Factor 12 AM to 12 AM 1:44 Active Insulin Time:? 4 hours Target(s): 12 AM to 12 AM 110 mg/dL Correction threshold: 12 AM to 12 AM 120 mg/dL Denies neuropathy. Denies numbness, tingling, pain or cramping in the lower extremities. Denies retinopathy. Last eye exam [facility] 1 year ago, goes annually Denies nephropathy. 10/25/2024 eGFR>60 07/28/2024 microalbumin 6.0 not on Juni inhibitor Last lipid profile 07/28/2024 LDL 88 Not on statin. 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 Son No problems noted. Son No problems noted. 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 Absence of acromegalic features. Neck exam reveals nl size thyroid about 15 gms. No thyroid nodules palpable. Heart S1 S2, Reg R/R. No M/R G. Skin exam reveals absence of vitiligo or acanthosis nigricans. Visual exam of foot performed. No ulcerations or open lesions. No inter digit maceration or fissuring. + onychomycosis nail beds, callous bilateral great toes, Sensation intact to monofilament exam. Vibratory sensation is normal with 128 Hz tuning fork. 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 He is followed by GI in his on Creon. Pump download shows excellent glycemic control. NADJA ordered Recommended he not walk around bear footed inside the house which he is current ly doing The patient had an opportunity to ask questions regarding treatment plan. The patient expressed understanding and agreement with the above treatment plan. The patient is aware they should contact our office by phone for worsening glucose readings or for any low blood sugars which may warrant a change in diabetes medication. Compliance is encouraged with medications and any followup testing/consults which may have been ordered. (2) Peripheral Vascular Disease: Code(s): I73.9 - Peripheral vascular disease, unspecified Plan: check nadja per [place] [employer] Association recommendations in this patient with diabetes and smoking history. Orders: Orders US NADJA complete Today I73.9 - Peripheral vascular disease, unspecified AMB Glucose Monitoring Today E13.9 - Other specified diabetes mellitus without complications, S36.209S - Unspecified injury of unspecified part of pancreas, sequela AMB Hemoglobin A1c Today E13.9 - Other specified diabetes mellitus without complications, S36.209S - Unspecified injury of unspecified part of pancreas, sequela, Z13.9 - Encounter for screening, unspecified Medications: New Lantus Solostar U-100 Insulin (insulin glargine) 20 units (0.2 mL) subcut DAILY 30 days PRN 6 mL 3RF Pump failure MDD 20 units NS blood-glucose sensor (Dexcom G7 Sensor device) As directed every 10 days 3 ea 11RF E13.9 - Other specified diabetes mellitus without complications, S36.209S - Unspecified injury of unspecified part of pancreas, sequela Lancrowus Solostar U-100 Insulin (insulin glargine) 12 units (0.12 mL) subcut DAILY 30 days PRN 6 mL 3RF Pump failure MDD 20 units NS Changed From blood sugar diagnostic (FreeStyle Lite Strips) Check blood sugar as directed twice a day before meals 100 ea 11RF E13.9 - Other specified diabetes mellitus without complications, S36.209S - Unspecified injury of unspecified part of pancreas, sequela To FreeStyle Lite Strips (blood sugar diagnostic) qid prn sensor failure 50 ea 3RF NS E13.9 - Other specified diabetes mellitus without complications, S36.209S - Unspecified injury of unspecified part of pancreas, sequela From lancets (FreeStyle Lancets) Check blood sugar twice a day as directed before meals 100 ea 0RF E13.9 - Other specified diabetes mellitus without complications, S36.209S - Unspecified injury of unspecified part of pancreas, sequela To lancets (FreeStyle Lancets) Q.i.d. p.r.n. sensor failure for use with glucometer 50 ea 1RF E13.9 - Other specified diabetes mellitus without complications, S36.209S - Unspecified injury of unspecified part of pancreas, sequela Refilled lancets (FreeStyle Lancets) Q.i.d. p.r.n. sensor failure for use with glucometer 50 ea 1RF E13.9 - Other specified diabetes mellitus without complications, S36.209S - Unspecified injury of unspecified part of pancreas, sequela FreeStyle Lite Strips (blood sugar diagnostic) qid prn sensor failure 50 ea 3RF NS E13.9 - Other specified diabetes mellitus without complications, S36.209S - Unspecified injury of unspecified part of pancreas, sequela Patient Instructions: The patient was counseled to achieve a target A1C of 7% (154 avg). Fasting blood sugars should be 90-130 in the morning and less than 180 two hours after meals. Reviewed the relationship between poor diabetic control and the development of complications. Take 15 carb carbohydrate grams to treat a low sugar (3-4 glucose tablets, half a glass of juice or 15 carbohydrate grams of soft candy such as gummie snacks). Recheck your sugar in 15 minutes and re-treat again with 15 carbohydrate grams if low or still with symptoms. Do not drive a car or operate machinery if you do not know what your blood sugar is, if it is low or in excess of 300. Symptoms of DKA (diabetic ketoacidosis): early: frequent urination, dry mouth, fatigue, feeling ill, severe symptoms: ketones in the urine, abdominal pain, chelle sea, vomiting and weakness. It is important to hydrate with sugar free liquids every 15-30 minutes and bring the sugars down to normal levels. If you are moderate or severe with ketones or unable to bring glucose to less than 200, go to the emergency room. Handout given. 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
[2025-02-04 07:24] VITALS: BP 124/84; PULSE 60; O2SAT 93
[2025-02-04 07:32] LABS: Glucose, Whole Blood 128 mg/dL (60-115)
== END 2025-02-04 07:38 | disposition home or self-care (01) ==
LOC: HO.ENCR 06:59
PROVIDERS: PCP Internal Medicine; Visit Provider Nurse Practitioner Adult Health
DX: Z13.9 Encounter for screening, unspecified (principal); E13.9 Other specified diabetes mellitus without complications; S36.209S Unspecified injury of unspecified part of pancreas, sequela; I73.9 Peripheral vascular disease, unspecified
CPT/HCPCS: 99214; G2211

== ENCOUNTER → 2025-02-04 06:59 | Outpatient (BNVA) | payer OTHER, SELFPAY | PROVIDERS: PCP Internal Medicine; Visit Provider Nurse Practitioner Adult Health | DX: E13.51 Other specified diabetes mellitus with diabetic peripheral angiopathy without gangrene (principal); S36.209S Unspecified injury of unspecified part of pancreas, sequela; X58.XXXS Exposure to other specified factors, sequela | CPT/HCPCS: 82947; 83036; 99212 ==

== ENCOUNTER 2025-03-03 14:47 | Outpatient (REF) | payer OTHER, SELFPAY ==
--- NOTE | ~2025-03-03 | US_ITS ---
CLINICAL HISTORY: I73.9 - Peripheral vascular disease, unspecified --- Additional Notes or Special In structions: recommeneded screening per [place] [employer] Ankle-brachial index Comparison: None Findings: Right brachial artery 157 mmHg Right posterior tibial artery 165 mmHg Right dorsalis pedis artery 166 mmHg Right ANALI:1.05 Left brachial artery 155 mmHg Left posterior tibial artery 164 mmHg Left dorsalis pedis artery 173 mmHg Left ANALI:1.1 ANALI and estimated severity of disease: 0.96 - 1.30 generally normal 0.81 - 0.95 mild disease 0.51 - 0.80 moderate disease 0.31 - 0.50 moderate to severe disease < 0.30 severe disease Impression: 1. Right ANALI normal 2. Left ANALI normal This document has been electronically signed by: Fredrick Dunn MD on 03/04/2025 11:38:08
== END 2025-03-03 14:48 | disposition home or self-care (01) ==
LOC: HO.US 14:47
PROVIDERS: PCP Internal Medicine; Visit Provider Nurse Practitioner Adult Health
DX: I73.9 Peripheral vascular disease, unspecified (principal)
CPT/HCPCS: 93923

== ENCOUNTER → 2025-03-03 14:49 | Outpatient (BNV) | payer OTHER, SELFPAY | PROVIDERS: PCP Internal Medicine; Visit Provider Radiology Diagnostic Radiology | DX: I73.9 Peripheral vascular disease, unspecified (principal) | CPT/HCPCS: 93923 ==

== ENCOUNTER 2025-03-16 10:11 | Outpatient (REF) | payer OTHER, SELFPAY ==
[2025-03-16 13:55] LABS: PSA,Total (Free>4and<10) 2.49 ng/mL (0.00-4.00)
== END 2025-03-16 10:12 | disposition home or self-care (01) ==
LOC: HO.HMGCLDS 10:11
PROVIDERS: PCP Internal Medicine; Visit Provider Urology
DX: Z12.5 Encounter for screening for malignant neoplasm of prostate (principal)
CPT/HCPCS: 36415; 84153

== ENCOUNTER 2025-03-17 07:43 | Outpatient (AMB) | payer OTHER, SELFPAY ==
--- NOTE | 2025-03-17 07:43 | MHC.OFFVIS ---
Vital Signs 03/17/25 07:44 Height 6 ft Weight 169 lb 4 oz BMI 23.0 BP 128/80 Blood Pressure Location Lt brachial Position Sitting Pulse 58 Pulse Source Pulse Oximeter Pulse Oximetry (%) 97 Oxygen Delivery Method Room Air Intake Visit Reasons: Follow up Intake Note: patient presents for follow up labs done 10/25/24 and med adjustment. Allergies No Known Allergies [No Known Allergies*] Allergy (Verified 03/17/25 07:47) HPI Comments Details: 59y/o male comes here for f/u of tingling in the gum , tongue, inner cheek on the right side. He is sleeping better with amitriptyline and pain is controlled with carbamazepine. History from initial visit- It started about 2-3 years ago . He had a right upper molar extraction- which could not be completed, he was referred to maxillofacial surgeon who completed the extraction.It started as infrequent episodes now he has daily episodes which can last the whole day . He feels it resolves at bedtimes. He also describes as numbing feeling. 1-2 times a week when he takes a nap he tends to bite his cheek .No difficulty speaking or swallowing . He denies pain. He describes it as pins and needles sensation and mild burning. He denies any shooting pain from ear down his cheek. He feels it in his tongue more after he eats but not sure eating or drinking triggers any episodes. Change in temperature or spicy food does not worsen.He denies frequent headaches. No head injury. He has h/o chronic pancreatitis due to alcohol. He quit 16 years ago. Now he has diabetes - on an insulin pump for past 2 mths . 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 Son No problems noted. Son No problems noted. 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: No Cognitive needs: No Hearing needs: No Vision needs: No Physical Exam Vital Signs: Last Vital Signs Pulse 58 03/17/25 07:44 BP 128/80 03/17/25 07:44 Pulse Ox 97 03/17/25 07:44 Oxygen Delivery Method Room Air 03/17/25 07:44 BMI result Body Mass Index 23.0 Const General: cooperative, healthy appearing, comfortable and no acute distress Nutritional Appearance: average body habitus Orientation/consciousness: patient oriented x3 Neuro General: patient oriented x3, gait normal, tone normal, moves all extremities and no focal motor deficits Cognition (Neuro): normal cognition Gait exam (Neuro): Normal gait present Motor exam (neuro): 5/5 motor strength present throughout and Normal motor muscle tone present throughout Coordination: [id number] test normal Assessment & Plan Assessment & Plan (1) Facial neuralgia: Comment: right Trigeminal neuralgia ( V2) likely triggered by the dental extraction, diabetes, malnutrition etc. Code(s): G51.8 - Other disorders of facial nerve Category: Medical Plan Amitriptyline 25 mg qhs carbamazepine XR 200mg bid MRI brain - unremarkable F/u eeler. Medications: Refilled amitriptyline 25 mg PO BEDTIME 90 tabs 6RF carbamazepine ER 200 mg PO BID 180 caps 6RF Coding Level of Care Code Est Pt Level 4 (91156) Complex EM visit Add On G2211 Diagnoses Facial neuralgia G51.8
[2025-03-17 07:44] VITALS: BP 128/80; PULSE 58; O2SAT 97; BMI 23.0
== END 2025-03-17 08:42 | disposition home or self-care (01) ==
LOC: HO.HSMS 07:43
PROVIDERS: PCP Internal Medicine; Visit Provider Psychiatry & Neurology Neurology
DX: G51.8 Other disorders of facial nerve (principal)
CPT/HCPCS: 99214; G2211

== ENCOUNTER → 2025-03-17 07:43 | Outpatient (BNVA) | payer OTHER, SELFPAY | PROVIDERS: PCP Internal Medicine; Visit Provider Psychiatry & Neurology Neurology | DX: G51.8 Other disorders of facial nerve (principal) | CPT/HCPCS: 99212 ==

== ENCOUNTER 2025-03-31 07:39 | Outpatient (AMB) | payer OTHER, SELFPAY ==
--- NOTE | 2025-03-31 07:39 | A.OFFVIS_ITS ---
Intake Visit Reasons: 1y/PSA Intake Note: Patient presents today to for a follow-up on PSA Results: PSA: 2.49 Meds- Tamsulosin Allergies to Antibiotic- No Known Allergies Blood Thinner- None Basic Sciences Professor Required: No Accompanied by: Self / Same As Patient Allergies No Known Allergies (No Known Allergies*) Allergy (Verified 03/31/25 07:41) Medication List - Last Reconciled 03/31/25 by Darnell Heck MD acetone (urine) test (Ketone Urine Test strips) As directed alcohol swabs (BD Alcohol Swabs) 1 pad topical TID 90 days amitriptyline 25 mg PO BEDTIME blood-glucose meter (FreeStyle Lite Meter kit) Check blood sugar as directed before meals twice a day blood-glucose sensor (Dexcom G6 Sensor device) USE 1 SENSOR DIRECTED, CHANGE EVERY 10 DAYS blood-glucose sensor (Dexcom G7 Sensor device) As directed every 10 days blood-glucose transmitter (Dexcom G6 Transmitter device) As directed carbamazepine ER 200 mg PO BID cetirizine 10 mg PO DAILY PRN Fiasp U-100 Insulin 100 unit/mL (insulin aspart (niacinamide)) up to 50 units per day via pump subcutaneously daily; 30 days NS flash glucose sensor (FreeStyle Roz 2 Sensor kit) As directed FreeStyle Lite Strips (blood sugar diagnostic) qid prn sensor failure NS hydrocortisone 2.5% topical insulin pump cart,auto,BT-cntr (Omnipod 5 G6 Intro Kit (Gen 5) subcutaneous cartridge with controller) As directed insulin pump cart,automated,BT USE DIRECTED BY DOCTOR FOR SUBCUTANEOUS DELIVERY OF INSULIN. CHANGE EVERY 72 HOURS. lancets (FreeStyle Lancets) Q.i.d. p.r.n. sensor failure for use with glucometer Lantus Solostar U-100 Insulin (insulin glargine) 12 units (0.12 mL) subcut DAILY PRN 30 days MDD 20 units NS [id number] 36,000-114,000- 180,000 unit (Creon) 2 caps PO TID lisinopril 10 mg PO DAILY Omnipod 5 G6-G7 Pods (Gen 5) (insulin pump cart,auto,BT,G6/7) As directed every 3 days NS pen needle, diabetic (BD Ultra-Fine Kim Pen Needle) As directed four times a day tamsulosin (Flomax) 0.4 mg PO BEDTIME thiamine HCl (vitamin B1) 300 mg (3 x 100 mg) PO DAILY vitamin A 1 cap PO DAILY [VITAMIN D3 25MCG CAP 1 cap PO DAILY] HPI Comments Details: 03/31/25-- - The patient is a 59-year-old male presenting with a follow-up for Benign Prostatic Hyperplasia (BPH). - The patient has been followed for BPH and is currently taking tamsulosin for management. - Recent PSA testing showed a level of 2.49, which is within the normal range, with a previous level of 1.73 last year. - The patient has a history of Diabetes Mellitus and is on insulin therapy. Co Morbidity for LUTS - The patient has transitioned from smoking cigarettes to vaping, with the intention to quit smoking. Results - Labs: PSA level 03/16/25 --2.49, previous year 1.73. Plan: current medication regimen, including tamsulosin for BPH. Smoking cessation discussed. Follow-up in person to check urinalysis continue PSA screening. 03/22/2024--Ishmael is a 58-year-old male who is followed due to BPH, history of chronic testicular pain and prostatitis. He is on tamsulosin 0.4 mg daily. Comorbidity insulin-dependent diabetes, nicotine dependence and neuralgia. I have reviewed recent PSA, 03/09/2024--PSA--1.73. Urinalysis--leukocytes negative blood negative. The patient states for about 6 weeks he is noted that his semen is brown. He denies pain with ejaculation. He has had some discomfort, but would not describe as pain, in the left testicle about the same time. Denies any swelling of the scrotum or testicle. I will continue tamsulosin. Empirically treat with Augmentin 875 mL twice a day. 09/22/23---Ishmael is a 57-year-old male who is here for FU evaluation for BPH, testicular pain and LUTS of dysuria Past Medical history insulin dependent Diabetes secondary to pancreatitis, chronic pancreatitis, Neuralgia post Herpes, Surgical history includes but is not limited to cervical fracture repair, 2000. Last seen for initial evaluation 07/16/23 - states LUTS improved and testicular pain resolved. Completed tamsulosin and did not have a refill. history of nicotine use >41 years and current cigarette use. I have discussed avoiding dietary bladder irritants, including to cut back on caffeine usage. (previously stated drinks 15 cups of coffee a day).?UA?leukocytes: negative; blood: negative; Imaging/Labs/Results- Scrotum US results from 07/10/2023 revealed bilateral epididymal cysts. Small right hydrocele. 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 Son No problems noted. Son No problems noted. 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: No Cognitive needs: No Hearing needs: No Vision needs: No Review of Systems Const All systems reviewed & are unremarkable except as noted in HPI and below Reports no additional complaints Eyes Reports no additional complaints ENT Reports no additional complaints Card Reports no additional complaints Resp Reports no additional complaints GI Reports no additional complaints Reports as per HPI Musc Reports no additional complaints Skin/Breast Reports system reviewed and no additional complaints, except as documented Neuro Reports no additional complaints Psych Reports no additional complaints Endo Reports no additional complaints Duncan/Lymph Reports no additional complaints Aller/Immun Reports no additional complaints Telehealth Telehealth Telehealth Platform: [employer] Location of provider rendering services: practice address Location of patient: address on file Patient Identification confirmed using: Name, : Yes Telehealth method: voice only Patient verbally consented to treatment: Yes Patient verbally consented to billing insurance company: Yes Patient informed of any privacy concerns related to visit: Yes Minutes spent on Phone/Video with Pt.: 13 Assessment & Plan Assessment & Plan (1) Nicotine dependence: Code(s): F17.200 - Nicotine dependence, unspecified, uncomplicated Category: Medical (2) Screening PSA (prostate specific antigen): Code(s): Z12.5 - Encounter for screening for malignant neoplasm of prostate Category: Medical (3) Diabetes: Code(s): E11.9 - Type 2 diabetes mellitus without complications Category: Medical (4) BPH loc w urin obs/LUTS: Code(s): N40.1 - Benign prostatic hyperplasia with lower urinary tract symptoms Category: Medical Plan Continue Flomax 0.4 mg Behavioral modification, avoid dietary bladder irritants, monitor coffee intake. Follow-up in 1 year, PSA prior Medications: Refilled tamsulosin (Flomax) 0.4 mg PO BEDTIME 90 caps 3RF Patient Instructions: The patient had an opportunity to ask questions regarding treatment plan. The patient expressed understanding and agreement with the above treatment plan. The patient is aware they should contact our office by phone for worsening of their current condition or the appearance of new symptoms. Compliance is encouraged with any medications and followup testing that is ordered. It is a privilege to be allowed the opportunity to participate in the urologic care of your patient. If you have any questions or concerns regarding treatment for the above conditions please do not hesitate to contact me. The office telephone contact is [phone]. This note is constructed in part using voice recognition software. While every effort has been made to ensure accuracy retail grocer errors may have been included. Yours sincerely, Darnell Heck MD Scribe Plan - Not visible on output: Patient was informed and verbally consented to the use of an ambient scribe for clinic note documentation during this visit. Coding Level of Care Code Tele Est Pt Level 3 (41005) Complex EM visit Add On G2211 Diagnoses Nicotine dependence F17.200 Screening PSA (prostate specific antigen) Z12.5 Diabetes E11.9 BPH loc w urin obs/LUTS N40.1
== END 2025-03-31 08:08 | disposition home or self-care (01) ==
LOC: HO.HUSH 07:39
PROVIDERS: PCP Internal Medicine; Visit Provider Urology
DX: F17.200 Nicotine dependence, unspecified, uncomplicated (principal); Z12.5 Encounter for screening for malignant neoplasm of prostate; E11.9 Type 2 diabetes mellitus without complications; N40.1 Benign prostatic hyperplasia with lower urinary tract symptoms
CPT/HCPCS: 99213; G2211

== ENCOUNTER → 2025-03-31 07:39 | Outpatient (BNVA) | payer OTHER, SELFPAY | PROVIDERS: PCP Internal Medicine; Visit Provider Urology ==

== ENCOUNTER 2025-04-11 11:24 | Outpatient (REF) | payer OTHER, SELFPAY ==
[2025-04-11 13:17] LABS: MANUAL DIFF FLAG NO
[2025-04-11 13:23] LABS: Basophils Percent Auto 0.7 % (0-2); Eosinophils Absolute Auto 0.1 X10*3/uL (0.0-0.4); Eosinophils Percent Auto 1.2 % (0-4); Hematocrit 37.1 % (42.0-52.0); Hemoglobin 12.5 g/dl (14.0-18.0); Imm Gran Abs Auto 0.01 X10*3/uL (0.00-0.03); Imm Gran Pct Auto 0.2 % (0.0-0.4); Lymphocytes Absolute Auto 1.1 X10*3/uL (1.2-4.9); Lymphocytes Percent Auto 25.1 % (20-40); Mean Corpuscular HGB Conc 33.7 g/dl (31.0-36.0); Mean Corpuscular Hemoglobin 30.6 pg (27.0-33.0); Mean Corpuscular Volume 90.9 fL (80.0-98.0); Mean Platelet Volume 10.6 fL (9.4-12.4); Monocytes Absolute Auto 0.3 X10*3/uL (0.1-1.2); Monocytes Percent Auto 7.9 % (2-11); Neutrophils Absolute Auto 2.7 x10*3/uL (2.0-8.3); Neutrophils Percent Auto 64.9 % (45-73); Platelet Count 189 X10*3/uL (160-400); Red Blood Count 4.08 X10*6/uL (4.60-5.80); Red Cell Distribution Width 12.7 % (11.0-16.0); White Blood Count 4.2 X10*3/uL (4.8-10.8)
[2025-04-11 13:32] LABS: Appearance Urine Clear; Color Urine Yellow; Glucose Urine UA Negative (Negative); Leukocyte Esterase Urine Negative (Negative); Nitrite Urine Negative (Negative); PH 5.5 (5.0-9.0); Specific Gravity - Urine <= 1.005 (1.005-1.025); Urine Blood Negative (Negative); Urine Ketones Negative (Negative); Urine Protein Negative (Neg-Trace)
[2025-04-11 13:46] LABS: Alanine Aminotransferase 32 U/L (0-40); Albumin Level 4.2 g/dL (3.5-5.0); Alkaline Phosphatase 90 U/L (39-117); Anion Gap 11 (12-20); Aspartate Amino Transferase 24 U/L (5-37); Bilirubin Total 0.2 mg/dL (0.0-1.0); Blood Urea Nitrogen 11 mg/dL (9-16); C Reactive Protein < 0.04 mg/dL (< or = 0.50); Calcium 8.5 mg/dL (8.4-10.2); Carbon Dioxide 24 mmol/L (22-29); Chloride 110 mmol/L (96-108); Estimated Glomerular Filt Rate > 60; Glucose Random 118 mg/dL (60-115); Sodium 141 mmol/L (135-145); Total Protein 6.3 g/dL (6.5-8.0)
[2025-04-11 14:02] LABS: Ferritin 106 ng/mL (20-250); TSH reflex Free T4 0.91 uIU/mL (0.32-4.0); Vitamin D 25-OH Total 34.7 ng/mL (>30)
[2025-04-11 14:12] LABS: Folate 10.3 ng/mL (> or = 4.0); Vitamin B12 334 pg/mL (200-900)
[2025-04-14 06:39] LABS: Zinc 76 mcg/dL (60-130)
[2025-04-18 00:59] LABS: Alpha-Tocopherol 6.4 mg/L (5.7-19.9); Beta-Gamma Tocopherol <1.0 mg/L (<=4.3); Vitamin A 62 mcg/dL (38-98)
[2025-04-18 01:08] LABS: Nicotinamide <20 ng/mL (see note); Vit B3 - Nicotinic Acid <20 ng/mL (see note); Vitamin B1 14 nmol/L (8-30); Vitamin B5 (Pantothenic Acid) 82 ng/mL (<275)
[2025-04-18 01:19] LABS: Vitamin C 0.6 mg/dL (0.2-2.1)
[2025-04-18 06:13] LABS: Vitamin B6 16.8 ng/mL (2.1-21.7)
== END 2025-04-11 11:25 | disposition home or self-care (01) ==
LOC: HO.LAB 11:24
PROVIDERS: PCP Internal Medicine; Visit Provider Internal Medicine Gastroenterology
DX: K75.81 Nonalcoholic steatohepatitis (NASH) (principal); R30.0 Dysuria; K85.90 Acute pancreatitis without necrosis or infection, unspecified; E51.9 Thiamine deficiency, unspecified; E50.9 Vitamin A deficiency, unspecified; R14.0 Abdominal distension (gaseous); R10.9 Unspecified abdominal pain; M85.859 Other specified disorders of bone density and structure, unspecified thigh
CPT/HCPCS: 36415; 80053; 81003; 82180; 82306; 82550; 82607; 82728; 82746; 84207; 84425; 84443; 84446; 84590; 84591; 84630; 85025; 86140; 99212

== ENCOUNTER 2025-04-11 11:24 | Outpatient (AMB) | payer OTHER, SELFPAY ==
--- NOTE | 2025-04-11 11:30 | MHC.OFFVIS ---
Vital Signs 04/11/25 11:31 Height 6 ft Weight 170 lb BMI 23.1 BP 129/87 Blood Pressure Location Lt brachial Position Sitting Pulse 72 Intake Visit Reasons: 8 mo f/u vit d def Intake Note: Ishmael presents in the office as a 8 month follow up. CC: States that he has been getting some discomfort in the lower back/flank area that creeps up. He states it is ore of a fullness and it happens even if he does not eat. It comes and goes but it happens more freuquent the last 2 weeks. No irregular bowel movements. 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 VITAL SIGNS:see workflow HEENT: Nonicteric sclerae, PERRLA, EOMI. Oropharynx clear. Moist mucous membranes. Conjunctivae appear well perfused. No thyroid mass. CHEST: Chest wall is nontender. HEART: Regular rate and rhythm without murmurs. LUNGS: Clear to auscultation bilaterally. ABDOMEN: Soft, positive bowel sounds, nontender, no organomegaly.no flank tenderness GENITAL:not done RECTAL: not done SKIN: No rash, no excessive bruising, petechiae, or purpura. NEUROLOGIC: Cranial nerves II-XII intact without motor/sensory deficit. A/P: .1. chronic pancreatitis with vitamin def, taking supplements 2. thiamine defc and low vit A- malabsorption 3. 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 Son No problems noted. Son No problems noted. 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: No Cognitive needs: No Hearing needs: No Vision needs: No Physical Exam Vital Signs: Last Vital Signs Pulse 72 04/11/25 11:31 BP 129/87 04/11/25 11:31 BMI result Body Mass Index 23.1 Assessment & Plan Assessment & Plan (1) Pancreatitis: Code(s): K85.90 - Acute pancreatitis without necrosis or infection, unspecified Category: Medical Plan: as above Orders: Orders Complete Blood Count Auto Diff Today - Acute pancreatitis without necrosis or infection, unspecified TSH reflex Free T4 Today K - Acute pancreatitis without necrosis or infection, unspecified C Reactive Protein Today K - Acute pancreatitis without necrosis or infection, unspecified Vitamin D 25-OH Total Today - Acute pancreatitis without necrosis or infection, unspecified Vitamin B12 and Folate Today - Acute pancreatitis without necrosis or infection, unspecified Vitamin B1 Today - Acute pancreatitis without necrosis or infection, unspecified Vitamin B5 (Pantothenic Acid) Today K - Acute pancreatitis without necrosis or infection, unspecified Vitamin B3 (Niacin) Today - Acute pancreatitis without necrosis or infection, unspecified Zinc Today K85.90 - Acute pancreatitis without necrosis or infection, unspecified Creatine Kinase Total Today K85.90 - Acute pancreatitis without necrosis or infection, unspecified US abdomen complete Today K85. - Acute pancreatitis without necrosis or infection, unspecified Comprehensive Met. Panel Today K75.81 - Nonalcoholic steatohepatitis (QUINONEZ), K85.90 - Acute pancreatitis without necrosis or infection, unspecified UA CC w/rflx Micro + Cult Today K85. - Acute pancreatitis without necrosis or infection, unspecified, R30.0 - Dysuria Vitamin A Today K85. - Acute pancreatitis without necrosis or infection, unspecified Vitamin B6 Today K85.90 - Acute pancreatitis without necrosis or infection, unspecified Vitamin C Today K85.90 - Acute pancreatitis without necrosis or infection, unspecified Vitamin E Today K85. - Acute pancreatitis without necrosis or infection, unspecified Ferritin Today K85. - Acute pancreatitis without necrosis or infection, unspecified Medications: New rifaximin 550 mg PO TID 42 tabs 0RF 2 weeks Coding Level of Care Code Est Pt Level 4 (34823) Diagnoses Pancreatitis K
[2025-04-11 11:31] VITALS: BP 129/87; PULSE 72; BMI 23.1
== END 2025-04-11 12:10 | disposition home or self-care (01) ==
LOC: HO.HGI 11:25
PROVIDERS: PCP Internal Medicine; Visit Provider Internal Medicine Gastroenterology
DX: K85.90 Acute pancreatitis without necrosis or infection, unspecified (principal)
CPT/HCPCS: 99214

== ENCOUNTER 2025-05-12 08:11 | Outpatient (REF) | payer OTHER, SELFPAY ==
--- NOTE | ~2025-05-12 | US_ITS ---
EXAMINATION: US ABDOMEN HISTORY: K85.90 - Acute pancreatitis without necrosis or infection, unspecified TECHNIQUE: Real-time grayscale ultrasound imaging of the abdomen was performed and images were reviewed. COMPARISON: Comparison is made with the prior examination dated 11/27/2023. FINDINGS: Liver: The liver is normal in size. The liver demonstrates coarsened echotexture. No focal mass or intrahepatic biliary ductal dilatation is identified. There is normal hepatopedal flow in the portal vein. The portal vein appears dilated measuring 1.8 cm in diameter. Gallbladder and biliary tree: The gallbladder is unremarkable, without evidence of calculi, wall thickening, or pericholecystic fluid. There is no sonographic Fajardo sign. The common bile duct is normal in caliber measuring 6 mm. Kidneys: The right kidney measures 11.6 cm in length and demonstrates a 2.5 x 3.0 x 2.4 cm cyst in the interpolar region. The left kidney measures 11.4 cm in length and demonstrates a nonobstructing 6 x 3 x 3 mm calculus at the lower pole. There is no hydronephrosis. Pancreas: Multiple pancreatic parenchymal calcifications are again noted. There is marked dilatation of the pancreatic duct measuring up to 1.6 cm in diameter. There is a 1.9 x 1.4 x 1.2 cm intraductal calculus noted. Spleen: The spleen is normal in size and contour, measuring 10.2 cm in length. Abdominal aorta and inferior vena cava: The visualized portions of the abdominal aorta and inferior vena cava are normal in caliber. There is no free fluid in the abdomen. US/US abdomen complete IMPRESSION: 1. Numerous pancreatic parenchymal calcifications consistent with chronic pancreatitis. Dilatation of the pancreatic duct containing intraluminal calculi. Evaluation for masses is limited. If there is clinical concern for a mass, contrast-enhanced CT or MRI is recommended. 2. Nonobstructing 6 x 3 x 3 mm left renal calculus. Electronically signed by: Samy Cruz MD 05/12/2025 09:23 AM EDT
== END 2025-05-12 08:12 | disposition home or self-care (01) ==
LOC: HO.HMGCX 08:11
PROVIDERS: PCP Internal Medicine; Visit Provider Internal Medicine Gastroenterology
DX: K85.90 Acute pancreatitis without necrosis or infection, unspecified (principal)
CPT/HCPCS: 76700

== ENCOUNTER → 2025-05-12 08:14 | Outpatient (BNV) | payer OTHER, SELFPAY | PROVIDERS: PCP Internal Medicine; Visit Provider Radiology Diagnostic Radiology | DX: K86.1 Other chronic pancreatitis (principal) | CPT/HCPCS: 76700 ==

== ENCOUNTER 2025-05-16 07:47 | Outpatient (AMB) | payer OTHER, SELFPAY ==
--- NOTE | 2025-05-16 07:52 | MHC.OFFVIS ---
Vital Signs 05/16/25 07:53 Height 6 ft Weight 170 lb 6.677 oz BMI 23.1 BP 110/70 Blood Pressure Location Rt brachial Position Sitting Pulse 59 Pulse Source Pulse Oximeter Pulse Oximetry (%) 100 Oxygen Delivery Method Room Air Intake Visit Reasons: T1DM Intake Note: Patient present today to follow up on Type 1 Diabetes Mellitus, last seen by Anabela Lundberg on 02/04/2025. Last Diabetic Eye exam: 08/2024 Last Podiatry Visit: Does not see a Customer Care Specialist. Random Glucose: 118mg/dl HgA1C: 6.4% Accompanied by: Self / Same As Patient Allergies No Known Allergies (No Known Allergies*) Allergy (Verified 05/16/25 07:54) Medication List - Last Reconciled 05/16/25 by Samy Duvall MD acetone (urine) test (Ketone Urine Test strips) As directed alcohol swabs (BD Alcohol Swabs) 1 pad topical TID 90 days amitriptyline 25 mg PO BEDTIME blood-glucose meter (FreeStyle Lite Meter kit) Check blood sugar as directed before meals twice a day blood-glucose sensor (SOAK (Smart Operational Agricultural toolKit) G7 Sensor device) As directed every 10 days carbamazepine ER 200 mg PO BID cetirizine 10 mg PO DAILY PRN Fiasp U-100 Insulin 100 unit/mL (insulin aspart (niacinamide)) up to 50 units per day via pump subcutaneously daily; 30 days NS flash glucose sensor (FreeStyle Roz 2 Sensor kit) As directed FreeStyle Lite Strips (blood sugar diagnostic) qid prn sensor failure NS hydrocortisone 2.5% topical insulin pump cart,auto,BT-cntr (Omnipod 5 G6 Intro Kit (Gen 5) subcutaneous cartridge with controller) As directed insulin pump cart,automated,BT USE DIRECTED BY DOCTOR FOR SUBCUTANEOUS DELIVERY OF INSULIN. CHANGE EVERY 72 HOURS. lancets (FreeStyle Lancets) Q.i.d. p.r.n. sensor failure for use with glucometer Lantus Solostar U-100 Insulin (insulin glargine) 12 units (0.12 mL) subcut DAILY PRN 30 days MDD 20 units NS jsicje-csuqjupk-eszrisd 36,000-114,000- 180,000 unit (Creon) 2 caps PO TID lisinopril 10 mg PO DAILY Omnipod 5 G6-G7 Pods (Gen 5) (insulin pump cart,auto,BT,G6/7) As directed every 3 days NS pen needle, diabetic (BD Ultra-Fine Kim Pen Needle) As directed four times a day phytonadione (vitamin K1) 5 mg PO DAILY rifaximin 550 mg PO TID 2 weeks tamsulosin (Flomax) 0.4 mg PO BEDTIME thiamine HCl (vitamin B1) 300 mg (3 x 100 mg) PO DAILY vitamin A 1 cap PO DAILY [VITAMIN D3 25MCG CAP 1 cap PO DAILY] HPI Comments Details: Patient is a 59 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 He was last seen by Anabela Stock NP on 02/04/25 He does have a low C-peptide 2019. He has a history of chronic pancreatitis. He is on Creon. He follows a low carb diet. 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 - Micro and macrovascular complications: none known Currently on an Omnipod 5 pump with Dexcom G7 Dexcom average glucose: 148 14 day continuous glucose monitor report reviewed Days with CGM data 94 % TIme in ranges: 2 % very high (above 250) 16 % high ?(181-250) 82 % in range ?(70-180] 0 % low (69-55) 0 % ?very low (below 54) Interpretation: He is in auto mode 99% of the time entering in 124 carbs daily No significant postprandial excursions Total daily dose of insulin 21.3 57% basal 12.1 43% bolus 9.2 backup insulin plan Lantus 12 units with usual doses of Humalog Basal rate(s) (units/hour) : 12 AM to 12 AM 0.7 units / hr Bolus setting Insulin Carbohydrate Ratio (s) 12 AM to 12 AM 1:13 Correction Factor / Sensitivity Factor 12 AM to 12 AM 1:44 Active Insulin Time:? 4 hours Target(s): 12 AM to 12 AM 110 mg/dL Correction threshold: 12 AM to 12 AM 120 mg/dL Denies neuropathy. Denies numbness, tingling, pain or cramping in the lower extremities. Denies retinopathy. Last eye exam [facility] Aug 2025 goes annually Denies nephropathy. 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 Son No problems noted. Son No problems noted. 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 Absence of acromegalic features. Neck exam reveals nl size thyroid about 15 gms. No thyroid nodules palpable. No carotid bruits present. Lungs CTA. Heart S1 S2, Reg R/R. No M/R/ G. Skin exam reveals absence of vitiligo or acanthosis nigricans. Abdominal exam reveals Soft NT/ND with NA BS. No organomegaly present. Neck Other: . Extrem Other: Visual exam of foot performed. No ulcerations or open lesions. No onchomycosis, no callouses.Pulses 2 + distally Sensation intact to monofilament exam. 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
[2025-05-16 07:53] VITALS: BP 110/70; PULSE 59; O2SAT 100; BMI 23.1
[2025-05-16 08:05] LABS: Glucose, Whole Blood 118 mg/dL (60-115)
== END 2025-05-16 08:13 | disposition home or self-care (01) ==
LOC: HO.ENCR 07:48
PROVIDERS: PCP Internal Medicine; Visit Provider Internal Medicine Endocrinology, Diabetes & Metabolism
DX: E13.9 Other specified diabetes mellitus without complications (principal); S36.209S Unspecified injury of unspecified part of pancreas, sequela; E11.9 Type 2 diabetes mellitus without complications
CPT/HCPCS: 99214

== ENCOUNTER → 2025-05-16 07:47 | Outpatient (BNVA) | payer OTHER, SELFPAY | PROVIDERS: PCP Internal Medicine; Visit Provider Internal Medicine Endocrinology, Diabetes & Metabolism | DX: E10.9 Type 1 diabetes mellitus without complications (principal); S36.209S Unspecified injury of unspecified part of pancreas, sequela | CPT/HCPCS: 82947; 83036; 99212 ==

== ENCOUNTER 2025-06-16 07:33 | Outpatient (REF) | payer OTHER, SELFPAY | END 2025-06-16 07:34 | disposition home or self-care (01) | LOC: HO.LAB 07:33 | PROVIDERS: PCP Internal Medicine; Visit Provider Internal Medicine Gastroenterology | DX: E46 Unspecified protein-calorie malnutrition (principal) | CPT/HCPCS: 36415; 84597 ==

== ENCOUNTER 2025-08-17 14:44 | Outpatient (AMB) | payer OTHER, SELFPAY ==
[2025-08-17 14:59] VITALS: BP 110/70; PULSE 89; RESP 16; TEMP 36.6; O2SAT 96; BMI 23.5
--- NOTE | 2025-08-17 14:59 | A.OFFPC_ITS ---
Vital Signs 08/17/25 14:59 Height 6 ft Weight 173 lb BMI 23.5 BP 110/70 Blood Pressure Location Lt brachial Position Sitting Respiration 16 Pulse 89 Pulse Source Pulse Oximeter Temp 97.9 F Temp Source Oral Pulse Oximetry (%) 96 Oxygen Delivery Method Room Air Intake Visit Reasons: Annual PE Intake Note: Pt is here today for his PE: Last colonoscopy 09/18/17 Awning Frame Maker Required: No Allergies No Known Allergies (No Known Allergies*) Allergy (Verified 08/24/25 03:01) Medication List - Last Reconciled 08/17/25 by Karely Velásquez MD acetone (urine) test (Ketone Urine Test strips) As directed alcohol swabs (BD Alcohol Swabs) 1 pad topical TID 90 days amitriptyline 25 mg PO BEDTIME blood-glucose meter (FreeStyle Lite Meter kit) Check blood sugar as directed before meals twice a day blood-glucose sensor ([employer] G7 Sensor device) As directed every 10 days Carbatrol ER (carbamazepine) 200 mg PO BID NS cetirizine 10 mg PO DAILY PRN Fiasp U-100 Insulin 100 unit/mL (insulin aspart (niacinamide)) up to 50 units per day via pump subcutaneously daily; 30 days NS flash glucose sensor (FreeStyle Roz 2 Sensor kit) As directed FreeStyle Lite Strips (blood sugar diagnostic) qid prn sensor failure NS hydrocortisone 2.5% topical insulin pump cart,auto,BT-cntr (Omnipod 5 G6 Intro Kit (Gen 5) subcutaneous cartridge with controller) As directed insulin pump cart,automated,BT USE DIRECTED BY DOCTOR FOR SUBCUTANEOUS DELIVERY OF INSULIN. CHANGE EVERY 72 HOURS. lancets (FreeStyle Lancets) Q.i.d. p.r.n. sensor failure for use with glucometer Lantus Solostar U-100 Insulin (insulin glargine) 12 units (0.12 mL) subcut DAILY PRN 30 days MDD 20 units NS enjkez-aewibvdc-zihgvcq (pork) 36,000-114,000- 180,000 unit (Creon) 2 caps PO TID lisinopril 10 mg PO DAILY Omnipod 5 G6-G7 Pods (Gen 5) (insulin pump cart,auto,BT,G6/7) As directed every 3 days NS pen needle, diabetic (BD Ultra-Fine Kim Pen Needle) As directed four times a day tamsulosin (Flomax) 0.4 mg PO BEDTIME Tobacco use date assessed: 08/17/25 Dental Screening Dental Screen Date: 08/17/25 Did you have a dental visit in the last 12 months?: Yes Did you have a dental problem in the last 6 months where you did not have access to dental care?: No Was dental information given to patient?: Patient has dentist HPI Annual PE HPI Details The patient is a 59-year-old male presenting for his physical exam The patient is noted to be slightly anemic on recent lab done . He denies any hematuria or oabnormal bleeding. His last colonoscopy was negative for polyps, and the next one is not due until 2026. 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 Has an Omnipod 5 pump , on DexcomG7 , and is on Creon. Lab work from March showed an A1C of 6.4, with normal electrolytes, kidney and liver function. His vitamin levels, including B12, were normal, and a previous vitamin K deficiency has resolved with treatment. The patient has a history of pancreatitis from approximately 20 years ago, which he attributes to alcohol consumption. He reports quitting alcohol cold turkey following a 7-day hospitalization for a severe episode of pancreatitis, and he has been sober since. He reports infrequent episodes of heartburn, occurring once every few months, characterized by a burning sensation rising to his throat that can cause difficulty breathing upon waking. He identifies triggers as greasy foods, red sauce, and ribs with barbecue sauce, particularly when lying down after a meal. Regarding health maintenance, the patient's last cholesterol check was a year ago and was normal. His last diabetic eye exam was in May and was normal, no retinopathy , no cataracts noted; his next is scheduled for October2025. 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 Son No problems noted. Son No problems noted. 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 1. Little interest or pleasure in doing things: not at all 2. Feeling down, depressed, or hopeless: not at all 3. Trouble falling or staying asleep, or sleeping too much: not at all 4. Feeling tired or having little energy: not at all 5. Poor appetite or overeating: not at all 6. Feeling bad about yourself - or that you are a failure or have let yourself or your family down: not at all 7. Trouble concentrating on things, such as reading the newspaper or watching television: not at all 8. Moving or speaking so slowly that other people could have noticed. Or the opposite - being so fidgety or restless that you have been moving around a lot more than usual: not at all 9. Thoughts that you would be better off or of hurting yourself in some way: not at all Total score: 0 Depression Screening Interpretation: Negative Depression Screening Done: Yes 27037 - PHQ-9 Billing: Yes Source: Developed by Drs. Samy Rubio, Fallon Connell, Thang Davis and colleagues, with an educational freya from [employer]. Thrive Questionnaire Date Thrive assessed: 08/17/25 I am a: Patient What is your living situation today?: I have a steady place to live Within the past 12 months, did the food you bought not last and you didn't have the money to get more?: Never true Within the past 12 months, did you worry whether your food would run out before you got money to buy more?: Never true Do you have trouble paying for medicines?: No Do you have trouble getting transportation to medical appointments?: No Do you have trouble paying your heating and electricity bill?: No Do you have trouble taking care of your child, family member or friend?: No Do you have trouble with day-to-day activities such as bathing, preparing meals, shopping, managing finances, etc.?: No Are you currently unemployed and looking for a job?: No Are you interested in more education?: No Please select the resources that you would like help with: None Currently or been in a relationship where the following occur: No concerns reported THRIVE Score: 0 AUDIT C Alcohol Use Questionnaire (AUDIT-C) 1. How often do you have a drink containing alcohol?: Never (former) Total Score: 0 CHELSEA-7 AMB Questionnaire CHELSEA-7 Date CHELSEA - 7 assessed: 08/24/25 Feeling nervous, anxious, or on edge: 0 = Not at all Not being able to stop or control worryin = Not at all Worrying too much about different things: 0 = Not at all Trouble relaxin = Not at all Being so restless that it is hard to sit still: 0 = Not at all Becoming easily annoyed or irritable: 0 = Not at all Feeling afraid as if something awful might happen: 0 = Not at all Total CHELSEA-7 score (0-4 normal; 5-9 mild; 10-14 moderate; 15-21 severe): 0 Source: Developed by Drs. Samy Rubio, Fallon Connell, Thang Davis and colleagues, with an educational freya from [employer]. CHELSEA-7 Assessment Billing CHELSEA-7 Assessment Tool: CHELSEA-7 Assessment 60340 Review of Systems Const All systems reviewed & are unremarkable except as noted in HPI and below Reports no additional complaints Eyes Details: goes to eye and lasik in [facility] with eye exam , per pt Reports no additional complaints ENT Reports no additional complaints Card Reports no additional complaints Resp Reports no additional complaints GI Reports no additional complaints Reports no additional complaints Musc Reports no additional complaints Skin/Breast Reports system reviewed and no additional complaints, except as documented Neuro Reports no additional complaints Psych Reports no additional complaints Endo Reports no additional complaints Duncan/Lymph Reports no additional complaints Aller/Immun Reports no additional complaints Physical exam (Primary Care) Vital Signs: Last Vital Signs Temp 97.9 F 08/17/25 14:59 Pulse 89 08/17/25 14:59 Resp 16 08/17/25 14:59 BP 110/70 08/17/25 14:59 Pulse Ox 96 08/17/25 14:59 Oxygen Delivery Method Room Air 08/17/25 14:59 BMI result Body Mass Index 23.5 Tobacco/Smoking Status: Tobacco use Status Tobacco use date assessed 08/17/25 08/17/25 15:02 Patient Tobacco Use Status Former Tobacco user 08/17/25 15:00 Tobacco use type Cigarette 08/17/25 15:00 e-Cigarette/Vaping Use Currently Using 08/17/25 15:00 PHQ-9: PHQ-9 Score PHQ-9: Total score 0 08/24/25 03:09 Depression Screening Interpretation: Negative Thrive Assessment: Date of Thrive Assessment Date Thrive assessed 08/17/25 08/24/25 03:09 Currently or been in a relationship where the following occur: No concerns reported Advance Care Planning discussion: Completed/Scanned Date of discussion: 08/17/25 Who was present: Patient Forms completed: Health Care Proxy Time spent: 16-45 minutes Actual minutes spent: 2 Const General: no acute distress Orientation/consciousness: patient oriented x3 Limitations: no limitations HENMT Head: Yes normocephalic Ears: external ears normal, TM's normal bilaterally and EAC's normal General nose exam: Normal external nose present Face and sinus: Yes face symmetric Mouth: Normal oral and palatal mucosa present and moist mucous membranes Eyes General: appearance normal, both eyes and all related structures Neck Neck: Yes full ROM, Yes no lymphadenopathy and Yes supple Resp Effort & Inspection: normal respiratory effort and able to speak in complete sentences Auscultation: clear to auscultation bilaterally Cardio Other: S1-S2 present regular rate and rhythm GI Inspection: Yes normal to inspection Palpation (GI): Soft to palpation, nontender, no guarding and no masses General: Yes no CVA tenderness Male General Exam: Yes normal external exam Testes: no testicular swelling and no testicular tenderness Back/Spine/Pelvis Back: no CVA tenderness and No back tenderness Skin General skin exam: no rashes or lesions noted and no jaundice Neuro General: patient oriented x3, gait normal, moves all extremities, Normal light touch and pain sensation, no focal motor deficits and CN's II-XI intact bilate rally Extrem General: Yes full ROM, Yes no joint enlargement, Yes no pedal edema and Yes normal gait Psych Appearance: grossly normal and well kempt Mental Status: mental status grossly normal Speech and movement: Normal speech and movement present Affect: normal affect Results Reviewed Results Reviewed: Coding Level of Care Code Est Pt Prev Care 40-64y(36892) Diagnoses Annual visit for general adult medical examination with abnormal findings Z00. 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 E13.9; S36.209S Anemia, unspecified type D64.9 Anemia type: unspecified type Benign prostatic hyperplasia without lower urinary tract symptoms N40.0 Lower urinary tract symptom presence: symptoms absent Advance directive discussed with patient Z71.89 Additional Codes CHELSEA-7 Assessment Billing - CHELSEA-7 Assessment Tool: CHELSEA-7 Assessment 26570 ([id number]) PHQ-9 - 41042 - PHQ-9 Billing: Yes ([id number]) Vital Signs *Quality* - Advance Care Planning discussion: Completed/Scanned ([id number]) Vital Signs *Quality* - Time spent: 16-45 minutes ([id number]) Assessment & Plan Assessment & Plan (1) Annual visit for general adult medical examination with abnormal findings: Code(s): Z00.01 - Encounter for general adult medical examination with abnormal findings Plan: Will check appropriate labs. Continue regular dental visit every 6 months and regular annual eye exams, goes to [facility]. Take adequate calcium in diet and vitamin-D 3 at 2000 IU per cap once a day, in addition to weight- bearing exercises to help maintain good muscle tone and weight control. Instructed to do self testicular exam check for any mass. Up-to-date with his vaccines. Up-to-date with his screening colonoscopy, due for repeat colon cancer screening in 2026 (2) Essential hypertension: Code(s): I10 - Essential (primary) hypertension Category: Medical Plan: Blood pressure at goal of less than 130/80. Continue lisinopril 10 mg daily. Reinforced importance of following a low sodium diet, getting regular exercise, and lowering stress levels. 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 Duvall, treated with Omnipod 5 pump with good glycemic control and no known retinopathy or microalbuminuria present. Up-to-date with his vaccines (4) Anemia: Code(s): D64.9 - Anemia, unspecified Category: Medical Qualifiers: Anemia type: unspecified type Qualified Code(s): D64.9 - Anemia, unspecified Plan: Will repeat another CBC and iron panel with ferritin (5) Benign prostatic hyperplasia: Code(s): N40.0 - Benign prostatic hyperplasia without lower urinary tract symptoms Category: Medical Qualifiers: Lower urinary tract symptom presence: symptoms absent Qualified Code(s): N40.0 - Benign prostatic hyperplasia without lower urinary tract symptoms Plan: Currently on tamsulosin, followed by Urology (6) Advance directive discussed with patient: Code(s): Z71.89 - Other specified counseling Plan: Initiated the conversation about Advanced Directives. Advanced Directives help patients prepare for current and future decisions about their medical treatment and place of care. Discussed with patient that it is a process where a patients current condition and prognosis are reviewed, their wishes for information regarding their illness are elicited, and likely medical dilemmas are presented and options discussed. Healthcare proxy form completed today. The form can be amended as needed, reviewed yearly and make changes as needed Orders: Orders Lipid Panel 08/18/25 D64.9 - Anemia, unspecified, E13.9 - Other specified diabetes mellitus without complications, I10 - Essential (primary) hypertension, S36.209S - Unspecified injury of unspecified part of pancreas, sequela Ferritin 08/18/25 D64.9 - Anemia, unspecified, E13.9 - Other specified diabetes mellitus without complications, I10 - Essential (primary) hypertension, S36.209S - Unspecified injury of unspecified part of pancreas, sequela Complete Blood Count Auto Diff 08/18/25 D64.9 - Anemia, unspecified, E13.9 - Other specified diabetes mellitus without complications, I10 - Essential (primary) hypertension, S36.209S - Unspecified injury of unspecified part of pancreas, sequela IRON PROFILE 08/18/25 D64.9 - Anemia, unspecified, E13.9 - Other specified diabetes mellitus without complications, I10 - Essential (primary) hypertension, S36.209S - Unspecified injury of unspecified part of pancreas, sequela
== END 2025-08-17 15:35 | disposition home or self-care (01) ==
LOC: HO.HMCC 14:45
PROVIDERS: PCP Internal Medicine; Visit Provider Internal Medicine
DX: Z00.01 Encounter for general adult medical examination with abnormal findings (principal); I10 Essential (primary) hypertension; E13.9 Other specified diabetes mellitus without complications; S36.209S Unspecified injury of unspecified part of pancreas, sequela; D64.9 Anemia, unspecified; N40.0 Benign prostatic hyperplasia without lower urinary tract symptoms; Z71.89 Other specified counseling

== ENCOUNTER → 2025-08-17 14:44 | Outpatient (BNVA) | payer OTHER, SELFPAY | PROVIDERS: PCP Internal Medicine; Visit Provider Internal Medicine | DX: Z00.01 Encounter for general adult medical examination with abnormal findings (principal); R12 Heartburn; I10 Essential (primary) hypertension; E13.9 Other specified diabetes mellitus without complications; D64.9 Anemia, unspecified; N40.0 Benign prostatic hyperplasia without lower urinary tract symptoms; S36.209S Unspecified injury of unspecified part of pancreas, sequela; X58.XXXS Exposure to other specified factors, sequela; Z71.89 Other specified counseling | CPT/HCPCS: 96127; 99396; 99497 ==

== ENCOUNTER 2025-08-18 08:24 | Outpatient (AMB) | payer OTHER, SELFPAY ==
--- NOTE | 2025-08-18 08:29 | A.OFFVIS_ITS ---
Vital Signs 08/18/25 08:34 Height 6 ft Weight 176 lb 2.389 oz BMI 23.9 BP 108/76 Blood Pressure Location Lt brachial Position Sitting Pulse 84 Pulse Source Pulse Oximeter Pulse Oximetry (%) 97 Oxygen Delivery Method Room Air Intake Visit Reasons: T1DM Intake Note: Patient present today to follow up on Type 1 Diabetes Mellitus. Last Diabetic Eye exam: 08/2024, has an upcoming appointment 10/2025 Last Podiatry Visit: Does not see a Hydrocrane Operator. 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 He does have a low C-peptide 2019. He has a history of chronic pancreatitis. He is on Creon. He follows a low carb diet. 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 - Micro and macrovascular complications: none known Currently on an Omnipod 5 pump with Dexcom G7 Dexcom average glucose: 162 14 day continuous glucose monitor report reviewed Days with CGM data 88.4 % TIme in ranges: 8 % very high (above 250) 21 % high ?(181-250) 71 % in range ?(70-180] 0 % low (69-55) 0 % ?very low (below 54) Interpretation: He is in auto mode 97% of the time entering in 198.5 carbs daily No significant postprandial excursions Total daily dose of insulin 31.1 55% basal 14 45% bolus 9.2 backup insulin plan Lantus 12 units with usual doses of Humalog Basal rate(s) (units/hour) : 12 AM to 12 AM 0.7 units / hr Bolus setting Insulin Carbohydrate Ratio (s) 12 AM to 12 AM 1:13 Correction Factor / Sensitivity Factor 12 AM to 12 AM 1:44 Active Insulin Time:? 4 hours Target(s): 12 AM to 12 AM 110 mg/dL Correction threshold: 12 AM to 12 AM 120 mg/dL Denies neuropathy. Denies numbness, tingling, pain or cramping in the lower extremities. Denies retinopathy. Last eye exam [facility] Aug 2025 goes annually Denies nephropathy. 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 Had [facility]NA[facility] was nl. 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 Son No problems noted. Son No problems noted. 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: No Cognitive needs: No Hearing needs: No Vision needs: No Physical Exam Vital Signs: Last Vital Signs Pulse 84 08/18/25 08:34 BP 108/76 08/18/25 08:34 Pulse Ox 97 08/18/25 08:34 Oxygen Delivery Method Room Air 08/18/25 08:34 BMI result Body Mass Index 23.9 Results AMB Hemoglobin A1c AMB Hemoglobin A1c 6.5 % Last Edit by ASHA Lord on 08/18/25 08:53 Results Reviewed Results Reviewed: Laboratory Last Values Glucose (Clinic) 110 mg/dL (60-115) 08/18/25 08:39 Hgb A1c (Clinic) 6.5 % (4.0-6.0) H 08/18/25 08:45 Assessment & Plan Assessment & Plan (1) 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 He is having post-dinner late afternoon hyperglycemia Plan is to tighten the insulin: Carbohydrate to 01:12 from 15:00 to midnight. 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
[2025-08-18 08:34] VITALS: BP 108/76; PULSE 84; O2SAT 97; BMI 23.9
[2025-08-18 08:45] LABS: Glucose, Whole Blood 110 mg/dL (60-115)
== END 2025-08-18 09:01 | disposition home or self-care (01) ==
LOC: HO.ENCR 08:24
PROVIDERS: PCP Internal Medicine; Visit Provider Internal Medicine Endocrinology, Diabetes & Metabolism
DX: E13.9 Other specified diabetes mellitus without complications (principal); S36.209S Unspecified injury of unspecified part of pancreas, sequela
CPT/HCPCS: 99214

== ENCOUNTER 2025-08-18 08:24 | Outpatient (REF) | payer OTHER, SELFPAY ==
[2025-08-18 10:10] LABS: MANUAL DIFF FLAG NO
[2025-08-18 10:45] LABS: Hematocrit 40.0 % (42.0-52.0); Hemoglobin 13.3 g/dl (14.0-18.0); Imm Gran Abs Auto 0.02 X10*3/uL (0.00-0.03); Imm Gran Pct Auto 0.4 % (0.0-0.4); Lymphocytes Absolute Auto 1.3 X10*3/uL (1.2-4.9); Mean Corpuscular HGB Conc 33.3 g/dl (31.0-36.0); Mean Corpuscular Hemoglobin 30.2 pg (27.0-33.0); Mean Corpuscular Volume 90.9 fL (80.0-98.0); NRBC Abs Auto 0.000 X10*3/uL (0.0-0.012); NRBC Pct Auto 0.0 /100WBC (0.0-0.2); Platelet Count 225 X10*3/uL (160-400); Red Blood Count 4.40 X10*6/uL (4.60-5.80); White Blood Count 5.3 X10*3/uL (4.8-10.8)
[2025-08-18 11:25] LABS: Cholesterol 165 mg/dL (<200); HDL Cholesterol 55 mg/dL (>40); Iron 117 mcg/dL (45-160); Percent Iron Saturation 43 % (15-50); Total Iron Binding Capacity 271 mcg/dL (228-428); Triglycerides 48 mg/dL (<150); Unsaturated Iron Binding 154 ug/dL
[2025-08-18 11:28] LABS: Ferritin 121 ng/mL (20-250)
== END 2025-08-18 08:25 | disposition home or self-care (01) ==
LOC: HO.HMGCLDS 08:24
PROVIDERS: Absent Provider Internal Medicine; PCP Internal Medicine; Visit Provider Internal Medicine Endocrinology, Diabetes & Metabolism
DX: E13.9 Other specified diabetes mellitus without complications (principal); S36.209S Unspecified injury of unspecified part of pancreas, sequela; Z79.4 Long term (current) use of insulin; I10 Essential (primary) hypertension; D64.9 Anemia, unspecified
CPT/HCPCS: 36415; 80061; 82043; 82570; 82728; 82947; 83036; 83540; 85025; 99212

== ENCOUNTER 2025-09-05 11:46 | Outpatient (AMB) | payer OTHER, SELFPAY ==
--- NOTE | 2025-09-05 11:50 | A.OFFVIS_ITS ---
Vital Signs 09/05/25 11:55 Height 6 ft Weight 176 lb BMI 23.9 BP 123/68 Blood Pressure Location Lt brachial Position Sitting Pulse 84 Intake Visit Reasons: 5 mo Intake Note: Patient 5 month follow up for Pancreatitis Patient denies any GI issues. Hotel Lobby Concierge Required: No Accompanied by: Spouse Allergies No Known Allergies (No Known Allergies*) Allergy (Verified 08/24/25 03:01) HPI HPI 5 mo: Details: 59 yr old m here for f/u RECAP: chronic pancreatitis 2/2 alcohol, sober for >15 yrs now LABS: vit c, Vit D, Vit b1, vit e all low repeat numbers were good US 11/27/23 multiple calcifications/stone pancreas, dilated PD, INTERIM: he feels well, no complaint no abdo pain bloating improved with rifaximin bowels are nml with creon appetite is good no reflux, EXAM: GENERAL: The patient is well developed and nontoxic. VITAL SIGNS:see workflow HEENT: Nonicteric sclerae, PERRLA, EOMI. Oropharynx clear. Moist mucous membranes. Conjunctivae appear well perfused. No thyroid mass. CHEST: Chest wall is nontender. HEART: Regular rate and rhythm without murmurs. LUNGS: Clear to auscultation bilaterally. ABDOMEN: Soft, positive bowel sounds, nontender, no organomegaly.no flank tenderness GENITAL:not done RECTAL: not done SKIN: No rash, no excessive bruising, petechiae, or purpura. NEUROLOGIC: Cranial nerves II-XII intact without motor/sensory deficit. A/P: 1. chronic pancreatitis with vitamin def, taking supplements--values have improves a lot 2. thiamine defc and low vit A- malabsorption--improved 3. 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 Son No problems noted. Son No problems noted. 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: No Cognitive needs: No Hearing needs: No Vision needs: No Physical Exam Vital Signs: Last Vital Signs Pulse 84 09/05/25 11:55 BP 123/68 09/05/25 11:55 BMI result Body Mass Index 23.9 Assessment & Plan Assessment & Plan (1) Chronic pancreatitis: Comment: Very pleasant 57-year-old Gent seen by us initially in referred to [id number] has been followed there since time MD left practice- need follow for chronic panc- doing well with creon No issues- Code(s): K86.1 - Other chronic pancreatitis Category: Medical Plan: as above Orders: Orders MR abdomen wo/w con Today K86.1 - Other chronic pancreatitis Coding Level of Care Code Est Pt Level 4 (19286) Diagnoses Chronic pancreatitis K86.1
[2025-09-05 11:55] VITALS: BP 123/68; PULSE 84; BMI 23.9
== END 2025-09-05 12:34 | disposition home or self-care (01) ==
LOC: HO.HGI 11:47
PROVIDERS: PCP Internal Medicine; Visit Provider Internal Medicine Gastroenterology
DX: K86.1 Other chronic pancreatitis (principal)
CPT/HCPCS: 99214

== ENCOUNTER → 2025-09-05 11:46 | Outpatient (BNVA) | payer OTHER, SELFPAY | PROVIDERS: PCP Internal Medicine; Visit Provider Internal Medicine Gastroenterology | DX: K86.1 Other chronic pancreatitis (principal) | CPT/HCPCS: 99212 ==